=== PATIENT | female | born 1975 | race Caucasian/White ===

== ENCOUNTER 2017-09-05 13:38 | Outpatient (CLI) | payer BC | END 2017-09-05 15:44 | disposition home or self-care (01) | LOC: HPC 13:38 | DX: Z09 Encounter for follow-up examination after completed treatment for conditions other than malignant neoplasm (principal); R00.0 Tachycardia, unspecified; Z85.89 Personal history of malignant neoplasm of other organs and systems | CPT/HCPCS: Z7500 ==

== ENCOUNTER 2017-09-19 12:59 | Emergency (ER) | payer BC ==
[2017-09-19] MEDS: LACTATED RINGER'S 1,000 ML IV (15:16)
[2017-09-19] MEDS: FAMOTIDINE 20 MG INJ IV (15:16)
[2017-09-19] MEDS: LACTATED RINGER'S 500 ML IV (16:46)
== END 2017-09-19 17:44 | disposition home or self-care (01) ==
LOC: FTE 12:59
DX: E86.0 Dehydration (principal); C23 Malignant neoplasm of gallbladder
CPT/HCPCS: 96374; 99284-25

== ENCOUNTER 2017-10-05 12:35 | Inpatient (IN) | payer BC ==
[2017-10-05 13:11] LABS: ADD MAN DIFF? NO
[2017-10-05 13:14] LABS: WHITE BLOOD COUNT 9.4 10^3/ul (4.8-10.8)
[2017-10-05 13:14] LABS: BASOPHIL # 0.1 10^3/ul (0.0-0.1); BASOPHILS % 1.1 % (0.0-2.0); EOSINOPHILS % 0.4 % (0.0-7.0); HEMATOCRIT 42.1 % (37.0-47.0); HEMOGLOBIN 15.5 g/dl (12.0-16.0); LYMPHOCYTES # 1.9 10^3/ul (0.8-2.9); LYMPHOCYTES % 20.2 % (15.0-51.0); MEAN CORPUSCULAR HEMOGLOBIN 31.8 pg (29.0-33.0); MEAN CORPUSCULAR HGB CONC 36.8 g/dl (32.0-37.0); MEAN CORPUSCULAR VOLUME 86.3 fl (82.0-101.0); MEAN PLATELET VOLUME 10.4 fl (7.4-10.4); MONOCYTE # 0.5 10^3/ul (0.3-0.9); MONOCYTES % 5.2 % (0.0-11.0); NEUTROPHIL # 6.8 10^3/ul (1.6-7.5); NEUTROPHILS % 72.2 % (39.0-77.0); PLATELET COUNT 377 10^3/UL (140-415); RED BLOOD COUNT 4.88 10^6/ul (4.20-5.40); RED CELL DISTRIBUTION WIDTH 11.9 % (11.5-14.5)
[2017-10-05] MEDS: SOD CHLORIDE 0.9% 1,000 ML IV ×2 (13:20→20:00)
[2017-10-05] MEDS: FAMOTIDINE 20 MG INJ IV (13:21)
[2017-10-05] MEDS: ONDANSETRON 4 MG INJ IV ×2 (13:21→15:39)
[2017-10-05 13:31] LABS: ALANINE AMINOTRANSFERASE 111 IU/L (13-69); ALBUMIN 4.7 g/dl (3.3-4.9); ALBUMIN/GLOBULIN RATIO 1.02; ALKALINE PHOSPHATASE 296 IU/L (42-121); ASPARTATE AMINO TRANSFERASE 126 IU/L (15-46); BILIRUBIN,INDIRECT 2.1 mg/dl (0-1.1); BILIRUBIN,TOTAL 2.1 mg/dl (0.2-1.3); BLOOD UREA NITROGEN 42 mg/dl (7-20); CHLORIDE 67 mmol/L (97-110); CREATININE 2.01 mg/dl (0.44-1.00); GLUCOSE 155 mg/dl (70-220); MAGNESIUM 2.1 mg/dl (1.7-2.5); SODIUM 134 mmol/L (135-144); TOTAL PROTEIN 9.3 g/dl (6.1-8.1)
[2017-10-05] MEDS: LORAZEPAM 2 MG INJ IV (13:39)
[2017-10-05 13:40] LABS: ANION GAP 26 (8-16)
[2017-10-05 13:43] LABS: ADD UMIC YES; POTASSIUM 2.6 mmol/L (3.5-5.1); UR ASCORBIC ACID NEGATIVE (NEGATIVE); UR BACTERIA FEW /HPF (NONE SEEN); UR BILIRUBIN (Dip) 1+ mg/dL (NEGATIVE); UR BLOOD (Dip) 1+ mg/dL (NEGATIVE); UR CLARITY SLIGHTLY CLOUDY (CLEAR); UR COLOR AMBER (YELLOW); UR GLUCOSE (Dip) NEGATIVE (NEGATIVE); UR KETONES (Dip) 1+ mg/dL (NEGATIVE); UR LEUKOCYTE ESTERASE (Dip) NEGATIVE Leu/ul (NEGATIVE); UR NITRITE (Dip) NEGATIVE (NEGATIVE); UR RBC 1 /HPF (0-5); UR SPECIFIC GRAVITY (Dip) 1.021 (1.003-1.030); UR SQUAMOUS EPITHELIAL CELL FEW /HPF (FEW); UR TOTAL PROTEIN (Dip) 1+ mg/dl (NEGATIVE); UR UROBILINOGEN (Dip) 2+ mg/dL (NEGATIVE); UR WBC 5 /HPF (0-5)
[2017-10-05 13:44] LABS: CARBON DIOXIDE 44 mmol/L (21-31)
[2017-10-05] MEDS: POTASSIUM CHLORIDE 100 ML IVPB ×2 (14:12→16:20)
[2017-10-05] MEDS: POTASSIUM CHLORIDE (SR) 20 MEQ TAB PO (14:13)
[2017-10-05] MEDS ORDERED: ACETAMINOPHEN 325 MG TAB PO (14:30)
[2017-10-05] MEDS: HYDROmorphONE 0.5 MG/0.5 ML SYG IV (15:38)
[2017-10-05] MEDS ORDERED: LACTATED RINGER'S 1,000 ML IV (18:00)
[2017-10-05] MEDS ORDERED: NACL 0.9% 3 ML SYG IV (18:00)
[2017-10-05] MEDS ORDERED: morphine 2 MG INJ IV (18:00)
[2017-10-06] MEDS: HYDROmorphONE 0.5 MG/0.5 ML SYG IV (01:43)
[2017-10-06] MEDS: SOD CHLORIDE 0.9% 1,000 ML IV ×2 (02:03→16:58)
[2017-10-06 03:35] LABS: ADD MAN DIFF? NO
[2017-10-06 03:55] LABS: ALANINE AMINOTRANSFERASE 88 IU/L (13-69); ALBUMIN 3.7 g/dl (3.3-4.9); ALBUMIN/GLOBULIN RATIO 1.05; ALKALINE PHOSPHATASE 202 IU/L (42-121); ASPARTATE AMINO TRANSFERASE 88 IU/L (15-46); BILIRUBIN,INDIRECT 1.2 mg/dl (0-1.1); BILIRUBIN,TOTAL 1.2 mg/dl (0.2-1.3); BLOOD UREA NITROGEN 33 mg/dl (7-20); CHLORIDE 75 mmol/L (97-110); CREATININE 1.51 mg/dl (0.44-1.00); GLUCOSE 103 mg/dl (70-220); SODIUM 133 mmol/L (135-144); TOTAL PROTEIN 7.2 g/dl (6.1-8.1)
[2017-10-06 03:58] LABS: WHITE BLOOD COUNT 6.8 10^3/ul (4.8-10.8)
[2017-10-06 03:58] LABS: BASOPHIL # 0.1 10^3/ul (0.0-0.1); BASOPHILS % 0.9 % (0.0-2.0); EOSINOPHILS # 0.1 10^3/ul (0.0-0.5); EOSINOPHILS % 1.2 % (0.0-7.0); HEMATOCRIT 33.5 % (37.0-47.0); HEMOGLOBIN 12.3 g/dl (12.0-16.0); LYMPHOCYTES # 1.9 10^3/ul (0.8-2.9); LYMPHOCYTES % 28.4 % (15.0-51.0); MEAN CORPUSCULAR HEMOGLOBIN 32.1 pg (29.0-33.0); MEAN CORPUSCULAR HGB CONC 36.7 g/dl (32.0-37.0); MEAN CORPUSCULAR VOLUME 87.5 fl (82.0-101.0); MEAN PLATELET VOLUME 10.6 fl (7.4-10.4); MONOCYTE # 0.4 10^3/ul (0.3-0.9); MONOCYTES % 5.8 % (0.0-11.0); NEUTROPHIL # 4.3 10^3/ul (1.6-7.5); NEUTROPHILS % 63.1 % (39.0-77.0); PLATELET COUNT 256 10^3/UL (140-415); RED BLOOD COUNT 3.83 10^6/ul (4.20-5.40); RED CELL DISTRIBUTION WIDTH 12.1 % (11.5-14.5)
[2017-10-06 04:07] LABS: ANION GAP 14 (8-16)
[2017-10-06 04:09] LABS: CARBON DIOXIDE 46 mmol/L (21-31)
[2017-10-06] MEDS: POTASSIUM CHLORIDE 100 ML IVPB ×4 (05:02→11:17)
[2017-10-06] MEDS: POTASSIUM CHLORIDE 30 MEQ in SOD CHLORIDE 0.9% 1,000 ML IV (05:14)
[2017-10-06] MEDS: ONDANSETRON 4 MG INJ IV ×2 (07:58→22:39)
[2017-10-06] MEDS: POTASSIUM CHLORIDE (SR) 20 MEQ TAB PO ×2 (09:49→14:46)
[2017-10-06] MEDS: ENOXAPARIN 30 MG/0.3 ML SYG SC (09:50)
[2017-10-06] MEDS: MAGNESIUM SULFATE 1 GM/D5W 100 ML IVPB (10:13)
[2017-10-06] MEDS ORDERED: LORAZEPAM 1 MG TAB PO (11:30)
[2017-10-06] MEDS ORDERED: LORAZEPAM 0.5 MG TAB (11:59)
[2017-10-06 12:06] LABS: AADO2 Arterial 18.1 mmHg (7.0-24.0); Allen Test ACCEPTAB; Arterial Base Excess 16.6 mmol/L (-3.0-3); Arterial Blood Gas Oxygen Sat 96.2 mmHG (95.0-98.0); Arterial COHb 0.2 % (0.0-3.0); Arterial Fraction of Oxyhgb 95.9 % (93.0-99.0); Arterial HCO3 40.5 mmol/L (22.0-26.0); Arterial MetHb 0.1 % (0.0-1.5); Arterial Total Hemglobin 12.8 g/dl (12.0-18.0); Arterial pCO2 44.7 mmhg (35-45); MODE ROOM AIR; Site Right Radial
[2017-10-06] MEDS: LORAZEPAM 0.5 MG TAB PO ×2 (12:08→19:54)
[2017-10-06] MEDS: FAMOTIDINE 20 MG TAB PO ×2 (12:08→20:37)
[2017-10-06 13:34] LABS: BLOOD UREA NITROGEN 28 mg/dl (7-20); CALCIUM 9.2 mg/dl (8.4-10.2); CHLORIDE 82 mmol/L (97-110); CREATININE 1.43 mg/dl (0.44-1.00); GLUCOSE 105 mg/dl (70-220); MAGNESIUM 2.4 mg/dl (1.7-2.5); POTASSIUM 3.4 mmol/L (3.5-5.1); SODIUM 136 mmol/L (135-144)
[2017-10-06 13:41] LABS: ANION GAP 15 (8-16)
[2017-10-06 13:46] LABS: CARBON DIOXIDE 42 mmol/L (21-31)
[2017-10-06] MEDS: PANTOPRAZOLE (EC) 40 MG TAB PO (14:45)
[2017-10-06] MEDS: ACETAZOLAMIDE 500 MG INJ IV (17:41)
[2017-10-06 18:03] LABS: SODIUM,URINE RANDOM 125 mmol/L (30-90)
[2017-10-06 18:06] LABS: POTASSIUM,URINE RANDOM 42.5 mmol/L (25-125)
[2017-10-06] MEDS: BARIUM SULF 2% 450 ML BTL (BERRY SMOOTHIE) PO (19:13)
[2017-10-07] MEDS: SOD CHLORIDE 0.9% 1,000 ML IV ×3 (03:20→19:15)
[2017-10-07] MEDS: PANTOPRAZOLE (EC) 40 MG TAB PO (05:35)
[2017-10-07] MEDS: FAMOTIDINE 20 MG TAB PO ×2 (08:22→22:58)
[2017-10-07 08:24] LABS: ANION GAP 14 (8-16); BLOOD UREA NITROGEN 20 mg/dl (7-20); CALCIUM 9.3 mg/dl (8.4-10.2); CARBON DIOXIDE 36 mmol/L (21-31); CHLORIDE 90 mmol/L (97-110); GLUCOSE 104 mg/dl (70-220); MAGNESIUM 1.9 mg/dl (1.7-2.5); SODIUM 137 mmol/L (135-144)
[2017-10-07 08:27] LABS: POTASSIUM 2.6 mmol/L (3.5-5.1)
[2017-10-07 08:27] LABS: URIC ACID 9.6 mg/dl (3.1-7.9)
[2017-10-07] MEDS: ONDANSETRON 4 MG INJ IV ×3 (08:35→18:16)
[2017-10-07] MEDS: ENOXAPARIN 30 MG/0.3 ML SYG SC (08:39)
[2017-10-07] MEDS: LORAZEPAM 0.5 MG TAB PO (09:35)
[2017-10-07] MEDS ORDERED: POTASSIUM CHLORIDE (SR) 20 MEQ TAB PO (10:03)
[2017-10-07] MEDS ORDERED: POTASSIUM CHLORIDE 100 ML IVPB (10:30)
[2017-10-07] MEDS: POTASSIUM CHLORIDE 100 ML IVPB ×4 (11:27→22:57)
[2017-10-07] MEDS: LORAZEPAM 2 MG INJ IV (16:09)
[2017-10-07] MEDS: SUCRALFATE (100 MG/ML) 10ML CUP PO ×2 (19:47→22:57)
[2017-10-07] MEDS: POTASSIUM CHLORIDE (SR) 20 MEQ TAB PO (22:57)
[2017-10-08] MEDS: PANTOPRAZOLE (EC) 40 MG TAB PO (05:42)
[2017-10-08] MEDS: SOD CHLORIDE 0.9% 1,000 ML IV (05:42)
[2017-10-08] MEDS: SUCRALFATE (100 MG/ML) 10ML CUP PO ×4 (08:22→21:21)
[2017-10-08] MEDS: ALLOPURINOL 100 MG TAB PO ×2 (08:22→21:21)
[2017-10-08] MEDS: FAMOTIDINE 20 MG TAB PO ×2 (08:22→21:21)
[2017-10-08] MEDS: POTASSIUM CHLORIDE (SR) 20 MEQ TAB PO ×2 (08:23→21:21)
[2017-10-08] MEDS: ENOXAPARIN 30 MG/0.3 ML SYG SC (08:32)
[2017-10-08 08:42] LABS: ADD MAN DIFF? NO
[2017-10-08 08:44] LABS: BASOPHIL # 0.1 10^3/ul (0.0-0.1); BASOPHILS % 0.9 % (0.0-2.0); EOSINOPHILS # 0.2 10^3/ul (0.0-0.5); EOSINOPHILS % 2.9 % (0.0-7.0); HEMATOCRIT 35.4 % (37.0-47.0); HEMOGLOBIN 12.8 g/dl (12.0-16.0); LYMPHOCYTES # 1.9 10^3/ul (0.8-2.9); LYMPHOCYTES % 24.9 % (15.0-51.0); MEAN CORPUSCULAR HEMOGLOBIN 31.9 pg (29.0-33.0); MEAN CORPUSCULAR HGB CONC 36.2 g/dl (32.0-37.0); MEAN CORPUSCULAR VOLUME 88.3 fl (82.0-101.0); MEAN PLATELET VOLUME 10.8 fl (7.4-10.4); MONOCYTE # 0.4 10^3/ul (0.3-0.9); MONOCYTES % 4.7 % (0.0-11.0); NEUTROPHILS % 65.4 % (39.0-77.0); PLATELET COUNT 292 10^3/UL (140-415); RED BLOOD COUNT 4.01 10^6/ul (4.20-5.40)
[2017-10-08 08:44] LABS: WHITE BLOOD COUNT 7.6 10^3/ul (4.8-10.8)
[2017-10-08 09:14] LABS: ANION GAP 16 (8-16); BLOOD UREA NITROGEN 25 mg/dl (7-20); CALCIUM 9.6 mg/dl (8.4-10.2); CARBON DIOXIDE 36 mmol/L (21-31); CHLORIDE 92 mmol/L (97-110); CREATININE 1.55 mg/dl (0.44-1.00); GLUCOSE 115 mg/dl (70-220); POTASSIUM 3.1 mmol/L (3.5-5.1); SODIUM 141 mmol/L (135-144)
[2017-10-08] MEDS: POTASSIUM CHLORIDE 40 MEQ in SOD CHLORIDE 0.45% 1,000 ML IV ×2 (10:24→20:42)
[2017-10-08] MEDS: LIDOCAINE 2% (SDV) 5 ML INJ (15:53)
[2017-10-08] MEDS: PROPOFOL 40 ML (15:53)
[2017-10-09] MEDS: LORAZEPAM 0.5 MG TAB PO ×3 (01:28→21:22)
[2017-10-09] MEDS: PANTOPRAZOLE (EC) 40 MG TAB PO (05:33)
[2017-10-09] MEDS: POTASSIUM CHLORIDE 40 MEQ in SOD CHLORIDE 0.45% 1,000 ML IV ×2 (05:34→17:06)
[2017-10-09] MEDS: ALLOPURINOL 100 MG TAB PO ×2 (07:55→21:22)
[2017-10-09] MEDS: SUCRALFATE (100 MG/ML) 10ML CUP PO ×4 (07:55→21:22)
[2017-10-09] MEDS: POTASSIUM CHLORIDE (SR) 20 MEQ TAB PO ×2 (07:55→21:22)
[2017-10-09] MEDS: FAMOTIDINE 20 MG TAB PO ×2 (07:55→21:22)
[2017-10-09] MEDS: ENOXAPARIN 30 MG/0.3 ML SYG SC (08:04)
[2017-10-09 08:55] LABS: ADD MAN DIFF? NO
[2017-10-09 09:25] LABS: ANION GAP 14 (8-16); BLOOD UREA NITROGEN 25 mg/dl (7-20); CALCIUM 9.4 mg/dl (8.4-10.2); CARBON DIOXIDE 32 mmol/L (21-31); CHLORIDE 95 mmol/L (97-110); CREATININE 1.19 mg/dl (0.44-1.00); GLUCOSE 98 mg/dl (70-220); POTASSIUM 3.1 mmol/L (3.5-5.1); SODIUM 138 mmol/L (135-144)
[2017-10-09 09:56] LABS: BASOPHIL # 0.1 10^3/ul (0.0-0.1); EOSINOPHILS # 0.1 10^3/ul (0.0-0.5); EOSINOPHILS % 1.9 % (0.0-7.0); HEMATOCRIT 34.5 % (37.0-47.0); HEMOGLOBIN 12.2 g/dl (12.0-16.0); LYMPHOCYTES # 1.7 10^3/ul (0.8-2.9); LYMPHOCYTES % 27.5 % (15.0-51.0); MEAN CORPUSCULAR HEMOGLOBIN 31.5 pg (29.0-33.0); MEAN CORPUSCULAR HGB CONC 35.4 g/dl (32.0-37.0); MEAN CORPUSCULAR VOLUME 89.1 fl (82.0-101.0); MEAN PLATELET VOLUME 10.6 fl (7.4-10.4); MONOCYTE # 0.4 10^3/ul (0.3-0.9); MONOCYTES % 6.5 % (0.0-11.0); NEUTROPHIL # 3.9 10^3/ul (1.6-7.5); PLATELET COUNT 277 10^3/UL (140-415); RED BLOOD COUNT 3.87 10^6/ul (4.20-5.40); RED CELL DISTRIBUTION WIDTH 12.8 % (11.5-14.5)
[2017-10-09 09:56] LABS: WHITE BLOOD COUNT 6.3 10^3/ul (4.8-10.8)
[2017-10-10] MEDS: POTASSIUM CHLORIDE 40 MEQ in SOD CHLORIDE 0.45% 1,000 ML IV ×2 (05:07→21:08)
[2017-10-10] MEDS: PANTOPRAZOLE (EC) 40 MG TAB PO (05:09)
[2017-10-10 08:14] LABS: ADD MAN DIFF? NO
[2017-10-10 08:17] LABS: BASOPHIL # 0.1 10^3/ul (0.0-0.1); BASOPHILS % 1.3 % (0.0-2.0); EOSINOPHILS # 0.1 10^3/ul (0.0-0.5); EOSINOPHILS % 1.7 % (0.0-7.0); HEMATOCRIT 33.7 % (37.0-47.0); LYMPHOCYTES # 1.5 10^3/ul (0.8-2.9); LYMPHOCYTES % 24.6 % (15.0-51.0); MEAN CORPUSCULAR HEMOGLOBIN 31.5 pg (29.0-33.0); MEAN CORPUSCULAR HGB CONC 35.6 g/dl (32.0-37.0); MEAN CORPUSCULAR VOLUME 88.5 fl (82.0-101.0); MEAN PLATELET VOLUME 10.5 fl (7.4-10.4); MONOCYTE # 0.4 10^3/ul (0.3-0.9); MONOCYTES % 5.8 % (0.0-11.0); NEUTROPHIL # 3.9 10^3/ul (1.6-7.5); NEUTROPHILS % 65.1 % (39.0-77.0); PLATELET COUNT 254 10^3/UL (140-415); RED BLOOD COUNT 3.81 10^6/ul (4.20-5.40); RED CELL DISTRIBUTION WIDTH 12.9 % (11.5-14.5)
[2017-10-10] MEDS: SUCRALFATE (100 MG/ML) 10ML CUP PO ×4 (08:25→21:07)
[2017-10-10] MEDS: FAMOTIDINE 20 MG TAB PO ×2 (08:25→21:07)
[2017-10-10] MEDS: POTASSIUM CHLORIDE (SR) 20 MEQ TAB PO ×2 (08:25→21:07)
[2017-10-10] MEDS: ALLOPURINOL 100 MG TAB PO ×2 (08:31→21:07)
[2017-10-10 08:34] LABS: INR 1.02; PROTIME 13.5 Sec (11.9-14.9); PT RATIO 1.1
[2017-10-10 08:35] LABS: PARTIAL THROMBOPLASTIN TIME 28.3 Sec (25.0-35.0)
[2017-10-10 08:38] LABS: ALANINE AMINOTRANSFERASE 62 IU/L (13-69); ALBUMIN 3.8 g/dl (3.3-4.9); ALBUMIN/GLOBULIN RATIO 1.02; ALKALINE PHOSPHATASE 195 IU/L (42-121); ANION GAP 18 (8-16); ASPARTATE AMINO TRANSFERASE 57 IU/L (15-46); BILIRUBIN,INDIRECT 0.7 mg/dl (0-1.1); BILIRUBIN,TOTAL 0.7 mg/dl (0.2-1.3); BLOOD UREA NITROGEN 25 mg/dl (7-20); CALCIUM 9.3 mg/dl (8.4-10.2); CARBON DIOXIDE 31 mmol/L (21-31); CHLORIDE 95 mmol/L (97-110); CREATININE 1.06 mg/dl (0.44-1.00); GLUCOSE 88 mg/dl (70-220); MAGNESIUM 1.8 mg/dl (1.7-2.5); POTASSIUM 3.4 mmol/L (3.5-5.1); SODIUM 141 mmol/L (135-144); TOTAL PROTEIN 7.5 g/dl (6.1-8.1)
[2017-10-10] MEDS: ENOXAPARIN 30 MG/0.3 ML SYG SC (08:38)
[2017-10-10 08:39] LABS: LACTIC ACID 0.9 mmol/L (0.5-2.0)
[2017-10-10 08:43] LABS: B-TYPE NATRIURETIC PEPTIDE 216 PG/ML (0-125)
[2017-10-10] MEDS ORDERED: POTASSIUM CHLORIDE (SR) 20 MEQ TAB PO (11:32)
[2017-10-10] MEDS ORDERED: BISACODYL 10 MG SUPP PR (13:00)
[2017-10-10] MEDS ORDERED: NA PHOSPHATE/BIPHOS 133 ML ENEMA PR (13:00)
[2017-10-10] MEDS: LORAZEPAM 0.5 MG TAB PO (21:08)
[2017-10-10] MEDS: ONDANSETRON 4 MG INJ IV (22:20)
[2017-10-10] MEDS: LORAZEPAM 2 MG INJ IV (22:42)
[2017-10-11] MEDS: PANTOPRAZOLE (EC) 40 MG TAB PO (06:00)
[2017-10-11 07:42] LABS: ADD MAN DIFF? NO
[2017-10-11 07:48] LABS: BASOPHIL # 0.1 10^3/ul (0.0-0.1); BASOPHILS % 1.2 % (0.0-2.0); EOSINOPHILS # 0.1 10^3/ul (0.0-0.5); EOSINOPHILS % 1.7 % (0.0-7.0); HEMATOCRIT 33.4 % (37.0-47.0); HEMOGLOBIN 11.8 g/dl (12.0-16.0); LYMPHOCYTES # 1.5 10^3/ul (0.8-2.9); LYMPHOCYTES % 26.6 % (15.0-51.0); MEAN CORPUSCULAR HEMOGLOBIN 31.5 pg (29.0-33.0); MEAN CORPUSCULAR HGB CONC 35.3 g/dl (32.0-37.0); MEAN CORPUSCULAR VOLUME 89.1 fl (82.0-101.0); MEAN PLATELET VOLUME 10.3 fl (7.4-10.4); MONOCYTE # 0.4 10^3/ul (0.3-0.9); MONOCYTES % 6.8 % (0.0-11.0); NEUTROPHIL # 3.6 10^3/ul (1.6-7.5); NEUTROPHILS % 62.7 % (39.0-77.0); PLATELET COUNT 252 10^3/UL (140-415); RED BLOOD COUNT 3.75 10^6/ul (4.20-5.40); RED CELL DISTRIBUTION WIDTH 12.8 % (11.5-14.5)
[2017-10-11 07:48] LABS: WHITE BLOOD COUNT 5.8 10^3/ul (4.8-10.8)
[2017-10-11 08:33] LABS: ANION GAP 16 (8-16); BLOOD UREA NITROGEN 25 mg/dl (7-20); CALCIUM 9.3 mg/dl (8.4-10.2); CARBON DIOXIDE 30 mmol/L (21-31); CHLORIDE 98 mmol/L (97-110); CREATININE 0.98 mg/dl (0.44-1.00); GLUCOSE 87 mg/dl (70-220); MAGNESIUM 1.7 mg/dl (1.7-2.5); PHOSPHORUS 3.6 mg/dl (2.5-4.9); POTASSIUM 3.8 mmol/L (3.5-5.1); SODIUM 140 mmol/L (135-144)
[2017-10-11] MEDS: ALLOPURINOL 100 MG TAB PO ×2 (10:33→20:46)
[2017-10-11] MEDS: POTASSIUM CHLORIDE (SR) 20 MEQ TAB PO ×2 (10:33→20:46)
[2017-10-11] MEDS: SUCRALFATE (100 MG/ML) 10ML CUP PO ×4 (10:34→20:46)
[2017-10-11] MEDS: ENOXAPARIN 30 MG/0.3 ML SYG SC (10:35)
[2017-10-11] MEDS: FAMOTIDINE 20 MG TAB PO ×2 (10:37→20:46)
[2017-10-11] MEDS: POTASSIUM CHLORIDE 40 MEQ in SOD CHLORIDE 0.45% 1,000 ML IV ×2 (16:06→20:49)
[2017-10-11] MEDS: OXYCODONE/ACETAMINOPHEN (5/325) TAB PO (17:20)
[2017-10-11] MEDS: DIATR MEGLU/DIATRIZOATE SODIUM 120 ML BTL (17:55)
[2017-10-12] MEDS: PANTOPRAZOLE (EC) 40 MG TAB PO (05:56)
[2017-10-12] MEDS: POTASSIUM CHLORIDE (SR) 20 MEQ TAB PO ×2 (08:22→22:34)
[2017-10-12] MEDS: SUCRALFATE (100 MG/ML) 10ML CUP PO ×4 (08:22→22:34)
[2017-10-12] MEDS: ALLOPURINOL 100 MG TAB PO ×2 (08:22→22:34)
[2017-10-12] MEDS: FAMOTIDINE 20 MG TAB PO ×2 (08:22→22:34)
[2017-10-12] MEDS: ENOXAPARIN 30 MG/0.3 ML SYG SC (08:23)
[2017-10-12] MEDS: POTASSIUM CHLORIDE 40 MEQ in SOD CHLORIDE 0.45% 1,000 ML IV (14:51)
[2017-10-12 15:06] LABS: ADD MAN DIFF? NO
[2017-10-12 15:09] LABS: BASOPHIL # 0.1 10^3/ul (0.0-0.1); BASOPHILS % 1.1 % (0.0-2.0); EOSINOPHILS # 0.1 10^3/ul (0.0-0.5); EOSINOPHILS % 1.3 % (0.0-7.0); HEMOGLOBIN 11.9 g/dl (12.0-16.0); LYMPHOCYTES # 0.9 10^3/ul (0.8-2.9); LYMPHOCYTES % 14.4 % (15.0-51.0); MEAN CORPUSCULAR HEMOGLOBIN 32.1 pg (29.0-33.0); MEAN CORPUSCULAR HGB CONC 36.1 g/dl (32.0-37.0); MEAN CORPUSCULAR VOLUME 88.9 fl (82.0-101.0); MEAN PLATELET VOLUME 10.1 fl (7.4-10.4); MONOCYTE # 0.4 10^3/ul (0.3-0.9); NEUTROPHIL # 4.8 10^3/ul (1.6-7.5); NEUTROPHILS % 76.1 % (39.0-77.0); PLATELET COUNT 228 10^3/UL (140-415); RED BLOOD COUNT 3.71 10^6/ul (4.20-5.40)
[2017-10-12 15:09] LABS: WHITE BLOOD COUNT 6.3 10^3/ul (4.8-10.8)
[2017-10-12 15:35] LABS: ANION GAP 19 (8-16); BLOOD UREA NITROGEN 23 mg/dl (7-20); CALCIUM 9.4 mg/dl (8.4-10.2); CARBON DIOXIDE 27 mmol/L (21-31); CHLORIDE 98 mmol/L (97-110); CREATININE 0.95 mg/dl (0.44-1.00); GLUCOSE 94 mg/dl (70-220); POTASSIUM 3.6 mmol/L (3.5-5.1); SODIUM 140 mmol/L (135-144)
[2017-10-12] MEDS: ONDANSETRON 4 MG INJ IV (22:33)
[2017-10-12] MEDS: LORAZEPAM 0.5 MG TAB PO (22:34)
[2017-10-13] MEDS: PANTOPRAZOLE (EC) 40 MG TAB PO (06:40)
[2017-10-13] MEDS: POTASSIUM CHLORIDE 40 MEQ in SOD CHLORIDE 0.45% 1,000 ML IV (06:40)
[2017-10-13 08:31] LABS: ADD MAN DIFF? NO
[2017-10-13 08:38] LABS: WHITE BLOOD COUNT 5.5 10^3/ul (4.8-10.8)
[2017-10-13 08:38] LABS: BASOPHIL # 0.1 10^3/ul (0.0-0.1); BASOPHILS % 1.1 % (0.0-2.0); EOSINOPHILS # 0.1 10^3/ul (0.0-0.5); EOSINOPHILS % 2.4 % (0.0-7.0); HEMATOCRIT 33.6 % (37.0-47.0); HEMOGLOBIN 11.8 g/dl (12.0-16.0); LYMPHOCYTES # 1.3 10^3/ul (0.8-2.9); LYMPHOCYTES % 22.6 % (15.0-51.0); MEAN CORPUSCULAR HEMOGLOBIN 31.2 pg (29.0-33.0); MEAN CORPUSCULAR HGB CONC 35.1 g/dl (32.0-37.0); MEAN CORPUSCULAR VOLUME 88.9 fl (82.0-101.0); MEAN PLATELET VOLUME 10.9 fl (7.4-10.4); MONOCYTE # 0.4 10^3/ul (0.3-0.9); NEUTROPHIL # 3.6 10^3/ul (1.6-7.5); NEUTROPHILS % 64.6 % (39.0-77.0); PLATELET COUNT 240 10^3/UL (140-415); RED BLOOD COUNT 3.78 10^6/ul (4.20-5.40)
[2017-10-13] MEDS: POTASSIUM CHLORIDE (SR) 20 MEQ TAB PO ×2 (08:38→20:26)
[2017-10-13] MEDS: SUCRALFATE (100 MG/ML) 10ML CUP PO ×4 (08:38→20:26)
[2017-10-13] MEDS: ALLOPURINOL 100 MG TAB PO ×2 (08:39→20:26)
[2017-10-13] MEDS: FAMOTIDINE 20 MG TAB PO (08:39)
[2017-10-13] MEDS: ENOXAPARIN 30 MG/0.3 ML SYG SC (08:47)
[2017-10-13 08:57] LABS: ANION GAP 16 (8-16); BLOOD UREA NITROGEN 21 mg/dl (7-20); CALCIUM 9.1 mg/dl (8.4-10.2); CARBON DIOXIDE 30 mmol/L (21-31); CHLORIDE 96 mmol/L (97-110); CREATININE 0.91 mg/dl (0.44-1.00); GLUCOSE 85 mg/dl (70-220); POTASSIUM 3.4 mmol/L (3.5-5.1); SODIUM 139 mmol/L (135-144)
[2017-10-13] MEDS: ONDANSETRON 4 MG INJ IV ×2 (08:57→13:00)
[2017-10-13] MEDS: LORAZEPAM 0.5 MG TAB PO (18:55)
[2017-10-14] MEDS: POTASSIUM CHLORIDE 40 MEQ in SOD CHLORIDE 0.45% 1,000 ML IV (01:32)
[2017-10-14] MEDS: PANTOPRAZOLE (EC) 40 MG TAB PO (05:49)
[2017-10-14 07:53] LABS: ANION GAP 17 (8-16); BLOOD UREA NITROGEN 21 mg/dl (7-20); CALCIUM 9.4 mg/dl (8.4-10.2); CARBON DIOXIDE 31 mmol/L (21-31); CHLORIDE 95 mmol/L (97-110); CREATININE 0.88 mg/dl (0.44-1.00); GLUCOSE 81 mg/dl (70-220); MAGNESIUM 1.7 mg/dl (1.7-2.5); PHOSPHORUS 3.8 mg/dl (2.5-4.9); POTASSIUM 3.3 mmol/L (3.5-5.1); SODIUM 140 mmol/L (135-144)
[2017-10-14] MEDS: SUCRALFATE (100 MG/ML) 10ML CUP PO ×2 (08:56→12:01)
[2017-10-14] MEDS: POTASSIUM CHLORIDE (SR) 20 MEQ TAB PO (08:56)
[2017-10-14] MEDS: ALLOPURINOL 100 MG TAB PO (08:56)
[2017-10-14] MEDS: ENOXAPARIN 30 MG/0.3 ML SYG SC (09:02)
[2017-10-14] MEDS: METOCLOPRAMIDE 10 MG INJ IV (11:58)
== END 2017-10-14 16:15 | disposition home or self-care (01) | DRG 435 ==
LOC: MS3 14:06 → TEL 10-07 22:00 → E/R 12:35
PROC: 0DB98ZX Excision of Duodenum, Via Natural or Artificial Opening Endoscopic, Diagnostic (ICD-10-PCS; principal; 2017-10-08 15:00)
PROC: 0DB68ZX Excision of Stomach, Via Natural or Artificial Opening Endoscopic, Diagnostic (ICD-10-PCS; 2017-10-08 15:00)
PROC: 0DB58ZX Excision of Esophagus, Via Natural or Artificial Opening Endoscopic, Diagnostic (ICD-10-PCS; 2017-10-08 15:00)
DX: C25.0 Malignant neoplasm of head of pancreas (principal); K29.71 Gastritis, unspecified, with bleeding; K31.5 Obstruction of duodenum; C78.7 Secondary malignant neoplasm of liver and intrahepatic bile duct; N17.9 Acute kidney failure, unspecified; E87.3 Alkalosis; K31.1 Adult hypertrophic pyloric stenosis; E87.6 Hypokalemia; Z85.89 Personal history of malignant neoplasm of other organs and systems; Z90.49 Acquired absence of other specified parts of digestive tract; R11.2 Nausea with vomiting, unspecified; Z96.89 Presence of other specified functional implants; K20.9 Esophagitis, unspecified; E79.0 Hyperuricemia without signs of inflammatory arthritis and tophaceous disease; K44.9 Diaphragmatic hernia without obstruction or gangrene; E66.01 Morbid (severe) obesity due to excess calories; Z68.27 Body mass index [BMI] 27.0-27.9, adult; F41.9 Anxiety disorder, unspecified; R25.3 Fasciculation; R20.0 Anesthesia of skin
CPT/HCPCS: 36415; 36600; 70450; 70553; 71045; 74176; 74182; 74240; 80048; 80053; 81001; 81003; 81025; 82570; 82803; 83605; 83735; 83880; 84100; 84133; 84300; 84560; 85025; 85610; 85730; 88305; 88312; 88313; 89190; 93005; 96374; 96375; 96376; 97161; 99291-25; J1120

== ENCOUNTER 2017-10-22 14:14 | Inpatient (IN) | payer BC ==
[2017-10-22 15:16] LABS: URINE PH (Dip) POC 5.5 (5.0-8.5)
[2017-10-22 15:16] LABS: URINE BLOOD (Dip) POC 2+ (NEGATIVE); URINE GLUCOSE (Dip) POC Negative (NEGATIVE); URINE KETONES (Dip) POC 2+ (NEGATIVE); URINE LEUKOCYTE EST (Dip) POC Negative (NEGATIVE); URINE NITRITE (Dip) POC Negative (NEGATIVE); URINE TOTAL PROTEIN POC 2+ (NEGATIVE)
[2017-10-22 15:17] LABS: ADD MAN DIFF? NO
[2017-10-22 15:18] LABS: WHITE BLOOD COUNT 13.5 10^3/ul (4.8-10.8)
[2017-10-22 15:18] LABS: BASOPHIL # 0.1 10^3/ul (0.0-0.1); BASOPHILS % 0.8 % (0.0-2.0); EOSINOPHILS % 0.1 % (0.0-7.0); HEMATOCRIT 40.3 % (37.0-47.0); HEMOGLOBIN 14.8 g/dl (12.0-16.0); LYMPHOCYTES # 2.1 10^3/ul (0.8-2.9); LYMPHOCYTES % 15.5 % (15.0-51.0); MEAN CORPUSCULAR HEMOGLOBIN 31.5 pg (29.0-33.0); MEAN CORPUSCULAR HGB CONC 36.7 g/dl (32.0-37.0); MEAN CORPUSCULAR VOLUME 85.7 fl (82.0-101.0); MEAN PLATELET VOLUME 10.7 fl (7.4-10.4); MONOCYTE # 0.6 10^3/ul (0.3-0.9); MONOCYTES % 4.5 % (0.0-11.0); NEUTROPHIL # 10.5 10^3/ul (1.6-7.5); NEUTROPHILS % 77.8 % (39.0-77.0); PLATELET COUNT 398 10^3/UL (140-415); RED CELL DISTRIBUTION WIDTH 12.6 % (11.5-14.5)
[2017-10-22] MEDS: SOD CHLORIDE 0.9% 1,000 ML IV ×2 (15:21→16:16)
[2017-10-22] MEDS: ONDANSETRON 4 MG INJ IV ×2 (15:21→20:42)
[2017-10-22 15:34] LABS: MAGNESIUM 1.9 mg/dl (1.7-2.5)
[2017-10-22 15:38] LABS: ALANINE AMINOTRANSFERASE 67 IU/L (13-69); ALBUMIN 4.5 g/dl (3.3-4.9); ALKALINE PHOSPHATASE 336 IU/L (42-121); ASPARTATE AMINO TRANSFERASE 83 IU/L (15-46); BILIRUBIN,INDIRECT 2.4 mg/dl (0-1.1); BILIRUBIN,TOTAL 2.4 mg/dl (0.2-1.3); BLOOD UREA NITROGEN 73 mg/dl (7-20); CALCIUM 9.3 mg/dl (8.4-10.2); CHLORIDE 67 mmol/L (97-110); CREATININE 1.86 mg/dl (0.44-1.00); GLUCOSE 189 mg/dl (70-220); LIPASE 152 U/L (23-300); SODIUM 131 mmol/L (135-144)
[2017-10-22 15:49] LABS: ANION GAP 24 (8-16)
[2017-10-22 15:51] LABS: CARBON DIOXIDE 42 mmol/L (21-31)
[2017-10-22] MEDS: LORAZEPAM 0.5 MG TAB PO (16:46)
[2017-10-22] MEDS: POTASSIUM CHLORIDE 100 ML IVPB ×2 (16:46→18:38)
[2017-10-22] MEDS ORDERED: METOCLOPRAMIDE 10 MG INJ IV (17:30)
[2017-10-22] MEDS ORDERED: NACL 0.9% 3 ML SYG IV (17:30)
[2017-10-23] MEDS: POTASSIUM CHLORIDE 40 MEQ in SOD CHLORIDE 0.9% 1,000 ML IV ×5 (01:15→20:09)
[2017-10-23 05:38] LABS: ADD MAN DIFF? NO
[2017-10-23 05:40] LABS: BASOPHIL # 0.1 10^3/ul (0.0-0.1); BASOPHILS % 0.8 % (0.0-2.0); EOSINOPHILS # 0.1 10^3/ul (0.0-0.5); EOSINOPHILS % 0.9 % (0.0-7.0); HEMATOCRIT 32.9 % (37.0-47.0); HEMOGLOBIN 11.5 g/dl (12.0-16.0); LYMPHOCYTES % 25.1 % (15.0-51.0); MEAN CORPUSCULAR HEMOGLOBIN 30.9 pg (29.0-33.0); MEAN CORPUSCULAR VOLUME 88.4 fl (82.0-101.0); MEAN PLATELET VOLUME 10.9 fl (7.4-10.4); MONOCYTE # 0.5 10^3/ul (0.3-0.9); MONOCYTES % 5.8 % (0.0-11.0); NEUTROPHIL # 5.3 10^3/ul (1.6-7.5); NEUTROPHILS % 65.9 % (39.0-77.0); PLATELET COUNT 219 10^3/UL (140-415); RED BLOOD COUNT 3.72 10^6/ul (4.20-5.40); RED CELL DISTRIBUTION WIDTH 12.6 % (11.5-14.5)
[2017-10-23 06:06] LABS: BLOOD UREA NITROGEN 52 mg/dl (7-20); CALCIUM 8.6 mg/dl (8.4-10.2); CHLORIDE 82 mmol/L (97-110); CREATININE 1.25 mg/dl (0.44-1.00); GLUCOSE 94 mg/dl (70-220); MAGNESIUM 1.8 mg/dl (1.7-2.5); PHOSPHORUS 2.8 mg/dl (2.5-4.9); SODIUM 135 mmol/L (135-144)
[2017-10-23] MEDS: PANTOPRAZOLE 40 MG INJ IV (06:09)
[2017-10-23 06:13] LABS: ANION GAP 15 (8-16)
[2017-10-23 06:16] LABS: POTASSIUM 2.3 mmol/L (3.5-5.1)
[2017-10-23 07:14] LABS: CARBON DIOXIDE 41 mmol/L (21-31)
[2017-10-23] MEDS: POTASSIUM CHLORIDE 100 ML IVPB ×3 (08:00→12:35)
[2017-10-23] MEDS: LORAZEPAM 2 MG INJ IV (16:16)
[2017-10-24] MEDS: POTASSIUM CHLORIDE 40 MEQ in SOD CHLORIDE 0.9% 1,000 ML IV ×3 (05:08→18:33)
[2017-10-24] MEDS: PANTOPRAZOLE 40 MG INJ IV (05:16)
[2017-10-24 06:36] LABS: ANION GAP 12 (8-16); BLOOD UREA NITROGEN 25 mg/dl (7-20); CALCIUM 8.7 mg/dl (8.4-10.2); CARBON DIOXIDE 33 mmol/L (21-31); CHLORIDE 96 mmol/L (97-110); CREATININE 0.97 mg/dl (0.44-1.00); GLUCOSE 86 mg/dl (70-220); MAGNESIUM 1.6 mg/dl (1.7-2.5); PHOSPHORUS 1.8 mg/dl (2.5-4.9); POTASSIUM 3.2 mmol/L (3.5-5.1); SODIUM 138 mmol/L (135-144)
[2017-10-24] MEDS: morphine 2 MG INJ IV (09:42)
[2017-10-24] MEDS: PROPOFOL 40 ML (17:36)
[2017-10-24] MEDS: MAGNESIUM SULFATE 2 GM/50 ML 50 ML IVPB (18:36)
[2017-10-24] MEDS: LORAZEPAM 2 MG INJ IV (22:15)
[2017-10-25] MEDS: POTASSIUM CHLORIDE 40 MEQ in SOD CHLORIDE 0.9% 1,000 ML IV ×5 (00:53→22:53)
[2017-10-25] MEDS: PANTOPRAZOLE 40 MG INJ IV (04:09)
[2017-10-25 05:45] LABS: ANION GAP 16 (8-16); BLOOD UREA NITROGEN 14 mg/dl (7-20); CALCIUM 8.5 mg/dl (8.4-10.2); CARBON DIOXIDE 26 mmol/L (21-31); CHLORIDE 99 mmol/L (97-110); CREATININE 0.75 mg/dl (0.44-1.00); GLUCOSE 83 mg/dl (70-220); MAGNESIUM 1.8 mg/dl (1.7-2.5); POTASSIUM 3.8 mmol/L (3.5-5.1); SODIUM 137 mmol/L (135-144)
[2017-10-25] MEDS: ONDANSETRON 4 MG INJ IV (12:55)
[2017-10-25] MEDS: KETOROLAC 15 MG INJ IV (12:55)
[2017-10-26] MEDS: KETOROLAC 15 MG INJ IV (04:31)
[2017-10-26 05:40] LABS: ADD MAN DIFF? NO
[2017-10-26 05:45] LABS: BASOPHIL # 0.1 10^3/ul (0.0-0.1); BASOPHILS % 1.1 % (0.0-2.0); EOSINOPHILS # 0.3 10^3/ul (0.0-0.5); EOSINOPHILS % 3.8 % (0.0-7.0); HEMATOCRIT 29.3 % (37.0-47.0); HEMOGLOBIN 10.6 g/dl (12.0-16.0); LYMPHOCYTES # 1.5 10^3/ul (0.8-2.9); MEAN CORPUSCULAR HGB CONC 36.2 g/dl (32.0-37.0); MEAN CORPUSCULAR VOLUME 88.5 fl (82.0-101.0); MONOCYTE # 0.3 10^3/ul (0.3-0.9); MONOCYTES % 4.2 % (0.0-11.0); NEUTROPHIL # 4.8 10^3/ul (1.6-7.5); NEUTROPHILS % 67.2 % (39.0-77.0); PLATELET COUNT 189 10^3/UL (140-415); RED BLOOD COUNT 3.31 10^6/ul (4.20-5.40); RED CELL DISTRIBUTION WIDTH 13.3 % (11.5-14.5)
[2017-10-26 05:45] LABS: WHITE BLOOD COUNT 7.1 10^3/ul (4.8-10.8)
[2017-10-26 06:10] LABS: ALANINE AMINOTRANSFERASE 35 IU/L (13-69); ALBUMIN 2.8 g/dl (3.3-4.9); ALKALINE PHOSPHATASE 171 IU/L (42-121); ASPARTATE AMINO TRANSFERASE 30 IU/L (15-46); BILIRUBIN,INDIRECT 0.7 mg/dl (0-1.1); BILIRUBIN,TOTAL 0.7 mg/dl (0.2-1.3); TOTAL PROTEIN 5.7 g/dl (6.1-8.1)
[2017-10-26 06:13] LABS: INR 1.17; PROTIME 15.1 Sec (11.9-14.9); PT RATIO 1.2
[2017-10-26 06:14] LABS: ALANINE AMINOTRANSFERASE 35 IU/L (13-69); ALBUMIN 2.9 g/dl (3.3-4.9); ALBUMIN/GLOBULIN RATIO 0.87; ALKALINE PHOSPHATASE 162 IU/L (42-121); ANION GAP 16 (8-16); ASPARTATE AMINO TRANSFERASE 28 IU/L (15-46); BILIRUBIN,INDIRECT 0.6 mg/dl (0-1.1); BILIRUBIN,TOTAL 0.6 mg/dl (0.2-1.3); BLOOD UREA NITROGEN 11 mg/dl (7-20); CALCIUM 8.4 mg/dl (8.4-10.2); CARBON DIOXIDE 20 mmol/L (21-31); CHLORIDE 103 mmol/L (97-110); CREATININE 0.71 mg/dl (0.44-1.00); GLUCOSE 75 mg/dl (70-220); PARTIAL THROMBOPLASTIN TIME 29.7 Sec (25.0-35.0); POTASSIUM 4.3 mmol/L (3.5-5.1); SODIUM 135 mmol/L (135-144); TOTAL PROTEIN 6.2 g/dl (6.1-8.1)
[2017-10-26] MEDS: POTASSIUM CHLORIDE 40 MEQ in SOD CHLORIDE 0.9% 1,000 ML IV ×3 (06:18→17:41)
[2017-10-26] MEDS: PANTOPRAZOLE 40 MG INJ IV (06:18)
[2017-10-26] MEDS ORDERED: EPHEDrine SULFATE 50 MG/5 ML SYG (07:00)
[2017-10-26 07:14] LABS: PHOSPHORUS 1.7 mg/dl (2.5-4.9)
[2017-10-26 07:14] LABS: MAGNESIUM 1.3 mg/dl (1.7-2.5)
[2017-10-26] MEDS ORDERED: PROPOFOL 40 ML (13:08)
[2017-10-26] MEDS ORDERED: SUCCINYLCHOLINE CHLORIDE 100 MG/5 ML SYG IV (13:18)
[2017-10-26] MEDS: MAGNESIUM SULFATE 4 GM/100 ML 100 ML IVPB (13:18)
[2017-10-26] MEDS ORDERED: ROCURONIUM 50 MG INJ (13:18)
[2017-10-26] MEDS ORDERED: MIDAZOLAM 1 MG/ML 2 ML INJ (13:20)
[2017-10-26] MEDS ORDERED: FENTAnyl 50 MCG/ML VIAL ×3 (13:20→15:09)
[2017-10-26] MEDS ORDERED: ONDANSETRON 4 MG INJ (13:22)
[2017-10-26] MEDS ORDERED: DEXAMETHASONE 4 MG/ML 1 ML INJ (13:24)
[2017-10-26] MEDS ORDERED: LIDOCAINE 100 MG SYRINGE (13:28)
[2017-10-26] MEDS ORDERED: SUGAMMADEX SODIUM 200 MG/2 ML VIAL IV (15:15)
[2017-10-26] MEDS ORDERED: LIDOCAINE 1% (MPF) 30 ML INJ (15:15)
[2017-10-26] MEDS: BUPIVACAINE 0.25% (MPF) 30 ML INJ (17:17)
[2017-10-26] MEDS ORDERED: HYDROCODONE/APAP (5/325) TAB PO (18:00)
[2017-10-26] MEDS ORDERED: HYDROmorphONE 0.5 MG/0.5 ML SYG IV (18:00)
[2017-10-26] MEDS ORDERED: DOCUSATE SODIUM 100 MG CAP PO (18:00)
[2017-10-26] MEDS ORDERED: FENTAnyl 50 MCG/ML VIAL IV ×3 (18:00)
[2017-10-26] MEDS ORDERED: HYDROmorphONE (0.2 MG/ML) 10ML SYG IV ×2 (18:00)
[2017-10-26] MEDS ORDERED: ONDANSETRON 4 MG INJ IV (18:00)
[2017-10-26] MEDS ORDERED: BISACODYL 10 MG SUPP PR (18:00)
[2017-10-26] MEDS ORDERED: HYDROmorphONE 1 MG/ML SYG IV (18:00)
[2017-10-26] MEDS: HYDROmorphONE (0.2 MG/ML) 10ML SYG IV (18:18)
[2017-10-26] MEDS: POTASSIUM PHOSPHATE 40 MEQ in SOD CHLORIDE 0.9% 250 ML IVPB (21:41)
[2017-10-27] MEDS: KETOROLAC 15 MG INJ IV (01:13)
[2017-10-27] MEDS: POTASSIUM CHLORIDE 40 MEQ in SOD CHLORIDE 0.9% 1,000 ML IV ×5 (03:36→23:48)
[2017-10-27 05:47] LABS: ADD MAN DIFF? NO
[2017-10-27 05:56] LABS: WHITE BLOOD COUNT 10.1 10^3/ul (4.8-10.8)
[2017-10-27 05:56] LABS: BASOPHIL # 0.1 10^3/ul (0.0-0.1); BASOPHILS % 0.6 % (0.0-2.0); EOSINOPHILS # 0.1 10^3/ul (0.0-0.5); EOSINOPHILS % 1.3 % (0.0-7.0); HEMATOCRIT 28.6 % (37.0-47.0); HEMOGLOBIN 10.3 g/dl (12.0-16.0); LYMPHOCYTES # 1.1 10^3/ul (0.8-2.9); LYMPHOCYTES % 10.7 % (15.0-51.0); MEAN CORPUSCULAR HEMOGLOBIN 32.1 pg (29.0-33.0); MEAN CORPUSCULAR VOLUME 89.1 fl (82.0-101.0); MONOCYTE # 0.4 10^3/ul (0.3-0.9); MONOCYTES % 4.2 % (0.0-11.0); NEUTROPHIL # 8.3 10^3/ul (1.6-7.5); NEUTROPHILS % 81.9 % (39.0-77.0); PLATELET COUNT 185 10^3/UL (140-415); RED BLOOD COUNT 3.21 10^6/ul (4.20-5.40); RED CELL DISTRIBUTION WIDTH 13.4 % (11.5-14.5)
[2017-10-27 06:09] LABS: INR 1.01; PROTIME 13.4 Sec (11.9-14.9)
[2017-10-27 06:10] LABS: PARTIAL THROMBOPLASTIN TIME 36.2 Sec (25.0-35.0)
[2017-10-27 06:20] LABS: B-TYPE NATRIURETIC PEPTIDE 1420 PG/ML (0-125)
[2017-10-27 06:25] LABS: ALANINE AMINOTRANSFERASE 37 IU/L (13-69); ALBUMIN 3.1 g/dl (3.3-4.9); ALBUMIN/GLOBULIN RATIO 0.96; ALKALINE PHOSPHATASE 172 IU/L (42-121); ANION GAP 16 (8-16); ASPARTATE AMINO TRANSFERASE 32 IU/L (15-46); BILIRUBIN,INDIRECT 0.5 mg/dl (0-1.1); BILIRUBIN,TOTAL 0.5 mg/dl (0.2-1.3); BLOOD UREA NITROGEN 12 mg/dl (7-20); CALCIUM 8.2 mg/dl (8.4-10.2); CARBON DIOXIDE 22 mmol/L (21-31); CHLORIDE 102 mmol/L (97-110); CREATININE 0.77 mg/dl (0.44-1.00); GLUCOSE 96 mg/dl (70-220); POTASSIUM 4.6 mmol/L (3.5-5.1); SODIUM 135 mmol/L (135-144)
[2017-10-27 06:26] LABS: TOTAL PROTEIN 6.3 g/dl (6.1-8.1)
[2017-10-27] MEDS: PANTOPRAZOLE 40 MG INJ IV (06:26)
[2017-10-27 07:36] LABS: MAGNESIUM 1.7 mg/dl (1.7-2.5)
[2017-10-27] MEDS: ENOXAPARIN 40 MG/0.4 ML SYG SC (09:54)
[2017-10-27] MEDS: HYDROCODONE/APAP (5/325) TAB PO (10:03)
[2017-10-27] MEDS: LORAZEPAM 2 MG INJ IV (23:59)
[2017-10-28] MEDS: PANTOPRAZOLE 40 MG INJ IV (06:26)
[2017-10-28 06:34] LABS: ANION GAP 14 (8-16); BLOOD UREA NITROGEN 11 mg/dl (7-20); CALCIUM 8.4 mg/dl (8.4-10.2); CARBON DIOXIDE 21 mmol/L (21-31); CHLORIDE 105 mmol/L (97-110); CREATININE 0.61 mg/dl (0.44-1.00); GLUCOSE 91 mg/dl (70-220); MAGNESIUM 1.3 mg/dl (1.7-2.5); PHOSPHORUS 1.6 mg/dl (2.5-4.9); POTASSIUM 4.4 mmol/L (3.5-5.1); SODIUM 136 mmol/L (135-144)
[2017-10-28] MEDS: ENOXAPARIN 40 MG/0.4 ML SYG SC (09:11)
[2017-10-28] MEDS: POTASSIUM CHLORIDE 40 MEQ in SOD CHLORIDE 0.9% 1,000 ML IV ×2 (10:31→17:17)
[2017-10-28] MEDS: MAGNESIUM OXIDE 400 MG TAB PO ×2 (10:38→20:02)
[2017-10-28] MEDS: POTASSIUM PHOSPHATE 20 MEQ in SOD CHLORIDE 0.9% 250 ML IVPB (10:39)
[2017-10-28] MEDS: BISACODYL 10 MG SUPP PR (10:49)
[2017-10-28] MEDS: NEUTRA-PHOS 250 MG PACKET PO ×2 (13:45→20:02)
[2017-10-28] MEDS: MAGNESIUM SULFATE 4 GM/100 ML 100 ML IVPB (15:32)
[2017-10-28] MEDS ORDERED: NA PHOSPHATE/BIPHOS 133 ML ENEMA PR ×2 (18:00)
[2017-10-29] MEDS: POTASSIUM CHLORIDE 40 MEQ in SOD CHLORIDE 0.9% 1,000 ML IV ×4 (00:05→23:22)
[2017-10-29 05:26] LABS: ANION GAP 12 (8-16); BLOOD UREA NITROGEN 7 mg/dl (7-20); CALCIUM 8.4 mg/dl (8.4-10.2); CARBON DIOXIDE 23 mmol/L (21-31); CHLORIDE 105 mmol/L (97-110); CREATININE 0.61 mg/dl (0.44-1.00); GLUCOSE 96 mg/dl (70-220); MAGNESIUM 2.1 mg/dl (1.7-2.5); PHOSPHORUS 2.2 mg/dl (2.5-4.9); POTASSIUM 3.9 mmol/L (3.5-5.1); SODIUM 136 mmol/L (135-144)
[2017-10-29] MEDS: PANTOPRAZOLE 40 MG INJ IV (05:57)
[2017-10-29] MEDS: MAGNESIUM OXIDE 400 MG TAB PO ×2 (09:33→22:26)
[2017-10-29] MEDS: NEUTRA-PHOS 250 MG PACKET PO ×3 (09:33→22:26)
[2017-10-29] MEDS: ENOXAPARIN 40 MG/0.4 ML SYG SC (09:36)
[2017-10-29] MEDS: BISACODYL 10 MG SUPP PR ×3 (09:40→23:23)
[2017-10-30] MEDS: HYDROCODONE/APAP (5/325) TAB PO (04:20)
[2017-10-30] MEDS: POTASSIUM CHLORIDE 40 MEQ in SOD CHLORIDE 0.9% 1,000 ML IV (05:56)
[2017-10-30] MEDS: PANTOPRAZOLE 40 MG INJ IV (05:57)
[2017-10-30] MEDS: NEUTRA-PHOS 250 MG PACKET PO ×2 (08:58→11:58)
[2017-10-30] MEDS: MAGNESIUM OXIDE 400 MG TAB PO (08:58)
[2017-10-30] MEDS: ENOXAPARIN 40 MG/0.4 ML SYG SC (08:59)
[2017-10-30] MEDS: BISACODYL 10 MG SUPP PR (11:58)
[2017-10-31] MEDS ORDERED: PANTOPRAZOLE (EC) 40 MG TAB PO (06:00)
== END 2017-10-30 16:35 | disposition home or self-care (01) | DRG 327 ==
LOC: MS1 10-24 18:20 → E/R 14:14 → MS3 16:59
PROC: 0D164ZA Bypass Stomach to Jejunum, Percutaneous Endoscopic Approach (ICD-10-PCS; principal; 2017-10-24 15:45)
PROC: 0DNW4ZZ Release Peritoneum, Percutaneous Endoscopic Approach (ICD-10-PCS; 2017-10-24 15:45)
PROC: 0DB98ZX Excision of Duodenum, Via Natural or Artificial Opening Endoscopic, Diagnostic (ICD-10-PCS; 2017-10-24 15:45)
DX: K31.5 Obstruction of duodenum (principal); C22.1 Intrahepatic bile duct carcinoma; C78.89 Secondary malignant neoplasm of other digestive organs; E87.1 Hypo-osmolality and hyponatremia; E87.3 Alkalosis; N17.9 Acute kidney failure, unspecified; C25.9 Malignant neoplasm of pancreas, unspecified; K31.1 Adult hypertrophic pyloric stenosis; R11.2 Nausea with vomiting, unspecified; E87.6 Hypokalemia; E86.0 Dehydration; D72.828 Other elevated white blood cell count; E66.01 Morbid (severe) obesity due to excess calories; Z68.35 Body mass index [BMI] 35.0-35.9, adult; K66.0 Peritoneal adhesions (postprocedural) (postinfection); Z90.49 Acquired absence of other specified parts of digestive tract
CPT/HCPCS: 36415; 74019; 80048; 80053; 80076; 81003; 81025; 83690; 83735; 83880; 84100; 85025; 85610; 85730; 86850; 86900; 86901; 88305; 93005; 96374; 96376; 99285-25

== ENCOUNTER 2018-01-15 05:15 | Inpatient (IN) | payer BC ==
[2018-01-15] MEDS: ONDANSETRON 4 MG INJ IV (06:04)
[2018-01-15 06:05] LABS: WHITE BLOOD COUNT 13.8 10^3/ul (4.8-10.8)
[2018-01-15 06:05] LABS: HEMATOCRIT 31.6 % (37.0-47.0); HEMOGLOBIN 10.7 g/dl (12.0-16.0); MEAN CORPUSCULAR HEMOGLOBIN 30.5 pg (29.0-33.0); MEAN CORPUSCULAR HGB CONC 33.9 g/dl (32.0-37.0); MEAN PLATELET VOLUME 12.4 fl (7.4-10.4); NUCLEATED RED BLOOD CELLS% 0.4 /100WBC (0.0-0.0); PLATELET COUNT 163 10^3/UL (140-415); RED BLOOD COUNT 3.51 10^6/ul (4.20-5.40); RED CELL DISTRIBUTION WIDTH 14.8 % (11.5-14.5)
[2018-01-15] MEDS: morphine 4 MG/ML VIAL IV (06:05)
[2018-01-15] MEDS: SOD CHLORIDE 0.9% 500 ML IV (06:06)
[2018-01-15 06:24] LABS: ADD MAN DIFF? YES; POSITIVE DIFF @See below
[2018-01-15 06:33] LABS: ALANINE AMINOTRANSFERASE 44 IU/L (13-69); ALBUMIN 3.1 g/dl (3.3-4.9); ALBUMIN/GLOBULIN RATIO 0.81; ANION GAP 24 (8-16); ASPARTATE AMINO TRANSFERASE 44 IU/L (15-46); BILIRUBIN,TOTAL 2.7 mg/dl (0.2-1.3); BLOOD UREA NITROGEN 26 mg/dl (7-20); CALCIUM 8.4 mg/dl (8.4-10.2); CARBON DIOXIDE 16 mmol/L (21-31); CHLORIDE 100 mmol/L (97-110); CREATININE 1.12 mg/dl (0.44-1.00); GLUCOSE 78 mg/dl (70-220); LIPASE 173 U/L (23-300); SODIUM 138 mmol/L (135-144); TOTAL PROTEIN 6.9 g/dl (6.1-8.1)
[2018-01-15 06:45] LABS: TROPONIN-I 0.066 ng/ml (0.000-0.120)
[2018-01-15 06:48] LABS: ALKALINE PHOSPHATASE 2337 IU/L (42-121); INR 1.32; PROTIME 16.6 Sec (11.9-14.9); PT RATIO 1.3
[2018-01-15 06:49] LABS: PARTIAL THROMBOPLASTIN TIME 40.6 Sec (25.0-35.0); POTASSIUM 2.4 mmol/L (3.5-5.1)
[2018-01-15 06:51] LABS: LACTIC ACID 11.1 mmol/L (0.5-2.0)
[2018-01-15] MEDS: SODIUM CHLORIDE 0.9% 1L BAG IV* (06:57)
[2018-01-15 06:59] LABS: ANISOCYTOSIS 2+ (0-0); BAND NEUTROPHILS #M 1.3 10^3/ul (0.0-0.6); BAND NEUTROPHILS % (M) 10 % (0-4); BURR CELLS 1+ (0-0); LYMPHOCYTES #M 0.8 10^3/ul (0.8-2.9); LYMPHOCYTES % (M) 6 % (15-51); PLATELET ESTIMATE NORMAL; POIKILOCYTOSIS 1+ (0-0); SEG NEUT #M 11.8 10^3/ul (1.6-7.5); SEGMENTED NEUTROPHILS (M) % 84 % (39-77); SMUDGE%M 62 % (0-0)
[2018-01-15] MEDS: IOHEXOL 300MG/ML 150 ML BTL (07:15)
[2018-01-15] MEDS: SOD CHLORIDE 0.9% 100 ML (07:16)
[2018-01-15] MEDS: POTASSIUM CHLORIDE (SR) 20 MEQ TAB PO (07:35)
[2018-01-15] MEDS: CEFEPIME 1GM/50 ML (PMX) 50 ML IVPB (07:35)
[2018-01-15] MEDS: POTASSIUM CHLORIDE 50 ML IVPB ×3 (07:51→10:48)
[2018-01-15] MEDS: VANCOMYCIN 1 GM (PMX) 250 ML IVPB (07:56)
[2018-01-15] MEDS ORDERED: ONDANSETRON 4 MG INJ IV ×2 (08:30→10:30)
[2018-01-15] MEDS ORDERED: ACETAMINOPHEN 325 MG TAB PO (08:30)
[2018-01-15] MEDS ORDERED: NORepinephrine 8MG/250 ML (PMX 250 ML (09:24)
[2018-01-15] MEDS: NORepinephrine 8MG/250 ML (PMX 250 ML IV ×2 (09:39→22:14)
[2018-01-15] MEDS ORDERED: DOCUSATE SODIUM 100 MG CAP PO (10:30)
[2018-01-15] MEDS ORDERED: MAGNESIUM HYDROXIDE 30ML CUP PO (10:30)
[2018-01-15] MEDS ORDERED: BISACODYL (EC) 5 MG TAB PO (10:30)
[2018-01-15 10:47] LABS: LACTIC ACID 5.1 mmol/L (0.5-2.0)
[2018-01-15] MEDS ORDERED: VANCOMYCIN IV PER PHARMACY XX (11:00)
[2018-01-15] MEDS: SOD CHLORIDE 0.9% 1,000 ML IV ×2 (11:03→20:43)
[2018-01-15] MEDS: morphine 2 MG INJ IV ×2 (11:14→18:18)
[2018-01-15] MEDS: PIPER-TAZO 3.375 GM IV (PMX) 100 ML IVPB ×2 (11:14→20:43)
[2018-01-15 12:34] LABS: LACTIC ACID 4.3 mmol/L (0.5-2.0)
[2018-01-15 12:50] LABS: HEMOGLOBIN A1C 5.3 % (0-5.9)
[2018-01-15] MEDS: VANCOMYCIN 750 MG in SOD CHLORIDE 0.9% 150 ML IVPB (16:20)
[2018-01-15 18:56] LABS: ALANINE AMINOTRANSFERASE 42 IU/L (13-69); ALBUMIN 2.8 g/dl (3.3-4.9); ALBUMIN/GLOBULIN RATIO 0.77; ALKALINE PHOSPHATASE 820 IU/L (42-121); ANION GAP 17 (8-16); ASPARTATE AMINO TRANSFERASE 38 IU/L (15-46); BILIRUBIN,INDIRECT 0.9 mg/dl (0-1.1); BILIRUBIN,TOTAL 2.4 mg/dl (0.2-1.3); BLOOD UREA NITROGEN 26 mg/dl (7-20); CALCIUM 7.9 mg/dl (8.4-10.2); CARBON DIOXIDE 20 mmol/L (21-31); CHLORIDE 106 mmol/L (97-110); CREATININE 1.12 mg/dl (0.44-1.00); GLUCOSE 107 mg/dl (70-220); POTASSIUM 3.6 mmol/L (3.5-5.1); SODIUM 139 mmol/L (135-144); TOTAL PROTEIN 6.4 g/dl (6.1-8.1)
[2018-01-15] MEDS ORDERED: FAMOTIDINE 20 MG INJ IV (21:00)
[2018-01-15] MEDS: BARIUM SULF 2% 450 ML BTL (BERRY SMOOTHIE) PO (21:30)
[2018-01-15] MEDS: OXYCODONE/ACETAMINOPHEN (5/325) TAB PO (22:12)
[2018-01-16] MEDS: VANCOMYCIN 750 MG in SOD CHLORIDE 0.9% 150 ML IVPB ×2 (03:03→16:23)
[2018-01-16] MEDS: SOD CHLORIDE 0.9% 1,000 ML IV ×3 (05:27→18:57)
[2018-01-16] MEDS: PIPER-TAZO 3.375 GM IV (PMX) 100 ML IVPB ×4 (05:28→18:57)
[2018-01-16] MEDS: PANTOPRAZOLE 40 MG INJ IV (05:28)
[2018-01-16] MEDS: morphine 2 MG INJ IV ×2 (05:30→14:19)
[2018-01-16 05:33] LABS: WHITE BLOOD COUNT 40.8 10^3/ul (4.8-10.8)
[2018-01-16 05:33] LABS: ABNORMAL IP MESSAGE 1; HEMATOCRIT 26.2 % (37.0-47.0); HEMOGLOBIN 8.7 g/dl (12.0-16.0); MEAN CORPUSCULAR HGB CONC 33.2 g/dl (32.0-37.0); MEAN CORPUSCULAR VOLUME 93.2 fl (82.0-101.0); MEAN PLATELET VOLUME 12.3 fl (7.4-10.4); NUCLEATED RED BLOOD CELLS% 0.1 /100WBC (0.0-0.0); PLATELET COUNT 140 10^3/UL (140-415); RED BLOOD COUNT 2.81 10^6/ul (4.20-5.40); RED CELL DISTRIBUTION WIDTH 15.5 % (11.5-14.5)
[2018-01-16 05:57] LABS: MAGNESIUM 2.1 mg/dl (1.7-2.5)
[2018-01-16 06:02] LABS: ALANINE AMINOTRANSFERASE 42 IU/L (13-69); ALBUMIN 2.5 g/dl (3.3-4.9); ALBUMIN/GLOBULIN RATIO 0.67; ALKALINE PHOSPHATASE 722 IU/L (42-121); ANION GAP 14 (8-16); ASPARTATE AMINO TRANSFERASE 30 IU/L (15-46); BILIRUBIN,INDIRECT 0.8 mg/dl (0-1.1); BILIRUBIN,TOTAL 1.8 mg/dl (0.2-1.3); BLOOD UREA NITROGEN 24 mg/dl (7-20); CALCIUM 8.2 mg/dl (8.4-10.2); CARBON DIOXIDE 22 mmol/L (21-31); CHLORIDE 110 mmol/L (97-110); CREATININE 0.94 mg/dl (0.44-1.00); GLUCOSE 83 mg/dl (70-220); POTASSIUM 3.4 mmol/L (3.5-5.1); SODIUM 143 mmol/L (135-144); TOTAL PROTEIN 6.2 g/dl (6.1-8.1)
[2018-01-16 06:17] LABS: POSITIVE DIFF @See below
[2018-01-16 06:18] LABS: ADD MAN DIFF? YES
[2018-01-16 07:31] LABS: ANISOCYTOSIS 1+ (0-0); BAND NEUTROPHILS #M 5.7 10^3/ul (0.0-0.6); BAND NEUTROPHILS % (M) 14 % (0-4); LYMPHOCYTES % (M) 5 % (15-51); MONOCYTES % (M) 5 % (0-11); PLATELET ESTIMATE NORMAL; POLYCHROMASIA 2+ (0-0); RBC MORPHOLOGY COMMENT @See below; REACTIVE LYMPHOCYTES #M 0.4 10^3/ul (0.0-0.0); REACTIVE LYMPHOCYTES% (M) 1 % (0-0); SEG NEUT #M 32.9 10^3/ul (1.6-7.5); SEGMENTED NEUTROPHILS (M) % 75 % (39-77); SMUDGE%M 8 % (0-0); WBC MORPHOLOGY COMMENT @See below
[2018-01-16] MEDS: POTASSIUM CHLORIDE 100 ML IVPB ×2 (10:13→21:32)
[2018-01-16] MEDS: OXYCODONE/ACETAMINOPHEN (5/325) TAB PO ×2 (10:20→16:23)
[2018-01-16 15:08] LABS: VANCOMYCIN,TROUGH 13.5 ug/ml (10.0-20.0)
[2018-01-16] MEDS: LIDOCAINE 1% (MDV) 10 ML INJ (15:25)
[2018-01-16] MEDS ORDERED: NORepinephrine 8MG/250 ML (PMX 250 ML (23:45)
[2018-01-17] MEDS: PIPER-TAZO 3.375 GM IV (PMX) 100 ML IVPB ×5 (00:20→23:43)
[2018-01-17] MEDS: NORepinephrine 8MG/250 ML (PMX 250 ML IV ×2 (00:22→18:34)
[2018-01-17] MEDS: ACETAMINOPHEN 650MG/20.3ML CUP PO (00:29)
[2018-01-17] MEDS: VANCOMYCIN 750 MG in SOD CHLORIDE 0.9% 150 ML IVPB ×2 (03:06→15:45)
[2018-01-17 05:02] LABS: ADD MAN DIFF? NO
[2018-01-17 05:05] LABS: HEMATOCRIT 24.2 % (37.0-47.0); HEMOGLOBIN 7.9 g/dl (12.0-16.0); MEAN CORPUSCULAR VOLUME 93.4 fl (82.0-101.0); RED BLOOD COUNT 2.59 10^6/ul (4.20-5.40)
[2018-01-17 05:05] LABS: WHITE BLOOD COUNT 30.4 10^3/ul (4.8-10.8)
[2018-01-17 05:06] LABS: ABNORMAL IP MESSAGE 1; BASOPHIL # 0.2 10^3/ul (0.0-0.1); BASOPHILS % 0.5 % (0.0-2.0); EOSINOPHILS # 0.2 10^3/ul (0.0-0.5); EOSINOPHILS % 0.6 % (0.0-7.0); LYMPHOCYTES # 2.8 10^3/ul (0.8-2.9); LYMPHOCYTES % 9.3 % (15.0-51.0); MEAN CORPUSCULAR HEMOGLOBIN 30.5 pg (29.0-33.0); MEAN CORPUSCULAR HGB CONC 32.6 g/dl (32.0-37.0); MEAN PLATELET VOLUME 12.7 fl (7.4-10.4); MONOCYTE # 0.9 10^3/ul (0.3-0.9); MONOCYTES % 3.1 % (0.0-11.0); NEUTROPHIL # 25.4 10^3/ul (1.6-7.5); NEUTROPHILS % 83.6 % (39.0-77.0); PLATELET COUNT 131 10^3/UL (140-415); RED CELL DISTRIBUTION WIDTH 15.9 % (11.5-14.5)
[2018-01-17 05:37] LABS: ANION GAP 12 (8-16); BLOOD UREA NITROGEN 16 mg/dl (7-20); CALCIUM 7.8 mg/dl (8.4-10.2); CARBON DIOXIDE 22 mmol/L (21-31); CHLORIDE 109 mmol/L (97-110); CREATININE 0.87 mg/dl (0.44-1.00); GLUCOSE 115 mg/dl (70-220); POTASSIUM 3.4 mmol/L (3.5-5.1); SODIUM 140 mmol/L (135-144)
[2018-01-17 05:43] LABS: POSITIVE DIFF @See below
[2018-01-17] MEDS: PANTOPRAZOLE 40 MG INJ IV (05:51)
[2018-01-17 09:28] LABS: ALANINE AMINOTRANSFERASE 33 IU/L (13-69); ALBUMIN 2.3 g/dl (3.3-4.9); ALKALINE PHOSPHATASE 631 IU/L (42-121); ASPARTATE AMINO TRANSFERASE 24 IU/L (15-46); BILIRUBIN,INDIRECT 0.9 mg/dl (0-1.1); BILIRUBIN,TOTAL 1.3 mg/dl (0.2-1.3)
[2018-01-17] MEDS: OXYCODONE/ACETAMINOPHEN (5/325) TAB PO ×2 (09:36→21:40)
[2018-01-17 09:57] LABS: ADD UMIC YES; UR AMORPHOUS CRYSTAL FEW /HPF (NONE SEEN); UR ASCORBIC ACID NEGATIVE (NEGATIVE); UR BACTERIA FEW /HPF (NONE SEEN); UR BILIRUBIN (Dip) NEGATIVE (NEGATIVE); UR BLOOD (Dip) NEGATIVE (NEGATIVE); UR CLARITY CLOUDY (CLEAR); UR COLOR AMBER (YELLOW); UR GLUCOSE (Dip) NEGATIVE (NEGATIVE); UR KETONES (Dip) NEGATIVE (NEGATIVE); UR LEUKOCYTE ESTERASE (Dip) NEGATIVE Leu/ul (NEGATIVE); UR NITRITE (Dip) NEGATIVE (NEGATIVE); UR RBC 0 /HPF (0-5); UR SPECIFIC GRAVITY (Dip) 1.026 (1.003-1.030); UR SQUAMOUS EPITHELIAL CELL FEW /HPF (FEW); UR TOTAL PROTEIN (Dip) 1+ mg/dl (NEGATIVE); UR UROBILINOGEN (Dip) NEGATIVE (NEGATIVE); UR WBC 10 /HPF (0-5)
[2018-01-17] MEDS: POTASSIUM CHLORIDE 20 MEQ POWDER FOR ORAL SOLN PO (10:18)
[2018-01-17] MEDS: SOD CHLORIDE 0.9% 1,000 ML IV ×2 (13:15→22:23)
[2018-01-17] MEDS ORDERED: morphine LIQ (10 MG/5 ML) CUP PO (14:00)
[2018-01-18] MEDS: VANCOMYCIN 750 MG in SOD CHLORIDE 0.9% 150 ML IVPB ×2 (03:00→15:35)
[2018-01-18 05:21] LABS: HEMATOCRIT 23.4 % (37.0-47.0); HEMOGLOBIN 7.7 g/dl (12.0-16.0); MEAN CORPUSCULAR HEMOGLOBIN 30.9 pg (29.0-33.0); MEAN CORPUSCULAR HGB CONC 32.9 g/dl (32.0-37.0); MEAN PLATELET VOLUME 12.5 fl (7.4-10.4); PLATELET COUNT 143 10^3/UL (140-415); RED BLOOD COUNT 2.49 10^6/ul (4.20-5.40); RED CELL DISTRIBUTION WIDTH 15.6 % (11.5-14.5)
[2018-01-18 05:21] LABS: WHITE BLOOD COUNT 18.4 10^3/ul (4.8-10.8)
[2018-01-18 05:32] LABS: POSITIVE DIFF @See below
[2018-01-18 05:32] LABS: LACTIC ACID 1.6 mmol/L (0.5-2.0)
[2018-01-18 05:33] LABS: ADD MAN DIFF? YES
[2018-01-18 05:39] LABS: ALANINE AMINOTRANSFERASE 30 IU/L (13-69); ALBUMIN 2.2 g/dl (3.3-4.9); ALBUMIN/GLOBULIN RATIO 0.59; ALKALINE PHOSPHATASE 522 IU/L (42-121); ANION GAP 9 (8-16); ASPARTATE AMINO TRANSFERASE 18 IU/L (15-46); BILIRUBIN,INDIRECT 0.8 mg/dl (0-1.1); BILIRUBIN,TOTAL 0.8 mg/dl (0.2-1.3); BLOOD UREA NITROGEN 9 mg/dl (7-20); CALCIUM 7.6 mg/dl (8.4-10.2); CARBON DIOXIDE 21 mmol/L (21-31); CHLORIDE 112 mmol/L (97-110); CREATININE 0.77 mg/dl (0.44-1.00); GLUCOSE 110 mg/dl (70-220); POTASSIUM 3.3 mmol/L (3.5-5.1); SODIUM 139 mmol/L (135-144); TOTAL PROTEIN 5.9 g/dl (6.1-8.1)
[2018-01-18] MEDS: OXYCODONE/ACETAMINOPHEN (5/325) TAB PO ×3 (06:01→19:30)
[2018-01-18] MEDS: PANTOPRAZOLE 40 MG INJ IV (06:02)
[2018-01-18] MEDS: PIPER-TAZO 3.375 GM IV (PMX) 100 ML IVPB ×4 (06:02→23:33)
[2018-01-18 07:01] LABS: ANISOCYTOSIS 1+ (0-0); BAND NEUTROPHILS #M 0.1 10^3/ul (0.0-0.6); BAND NEUTROPHILS % (M) 1 % (0-4); EOSINOPHILS % (M) 2 % (0-7); GIANT THROMBO% (M) 1 % (0-0); LYMPHOCYTES #M 3.8 10^3/ul (0.8-2.9); LYMPHOCYTES % (M) 21 % (15-51); MONOCYTE #M 0.9 10^3/ul (0.3-0.9); MONOCYTES % (M) 5 % (0-11); PLATELET ESTIMATE NORMAL; POLYCHROMASIA 1+ (0-0); REACTIVE LYMPHOCYTES #M 0.1 10^3/ul (0.0-0.0); REACTIVE LYMPHOCYTES% (M) 1 % (0-0); SEG NEUT #M 12.9 10^3/ul (1.6-7.5); SEGMENTED NEUTROPHILS (M) % 70 % (39-77); SMUDGE%M 15 % (0-0)
[2018-01-18 08:18] LABS: MAGNESIUM 1.7 mg/dl (1.7-2.5)
[2018-01-18] MEDS: POTASSIUM CHLORIDE 100 ML IVPB ×3 (10:40→14:06)
[2018-01-18] MEDS: NORepinephrine 8MG/250 ML (PMX 250 ML IV (10:53)
[2018-01-18] MEDS: SOD CHLORIDE 0.9% 1,000 ML IV ×2 (10:54→18:30)
[2018-01-19] MEDS: SOD CHLORIDE 0.9% 1,000 ML IV ×2 (01:37→15:24)
[2018-01-19] MEDS: OXYCODONE/ACETAMINOPHEN (5/325) TAB PO ×4 (01:43→21:32)
[2018-01-19] MEDS: PIPER-TAZO 3.375 GM IV (PMX) 100 ML IVPB ×2 (05:28→13:46)
[2018-01-19] MEDS: PANTOPRAZOLE 40 MG INJ IV (05:28)
[2018-01-19 05:40] LABS: ADD MAN DIFF? NO
[2018-01-19 05:42] LABS: BASOPHIL # 0.1 10^3/ul (0.0-0.1); BASOPHILS % 0.5 % (0.0-2.0); EOSINOPHILS # 0.1 10^3/ul (0.0-0.5); EOSINOPHILS % 1.3 % (0.0-7.0); HEMATOCRIT 22.8 % (37.0-47.0); HEMOGLOBIN 7.4 g/dl (12.0-16.0); LYMPHOCYTES # 1.7 10^3/ul (0.8-2.9); LYMPHOCYTES % 16.3 % (15.0-51.0); MEAN CORPUSCULAR HEMOGLOBIN 30.2 pg (29.0-33.0); MEAN CORPUSCULAR HGB CONC 32.5 g/dl (32.0-37.0); MEAN CORPUSCULAR VOLUME 93.1 fl (82.0-101.0); MEAN PLATELET VOLUME 11.1 fl (7.4-10.4); MONOCYTE # 0.6 10^3/ul (0.3-0.9); MONOCYTES % 5.4 % (0.0-11.0); NEUTROPHIL # 7.7 10^3/ul (1.6-7.5); NEUTROPHILS % 73.6 % (39.0-77.0); PLATELET COUNT 164 10^3/UL (140-415); RED BLOOD COUNT 2.45 10^6/ul (4.20-5.40); RED CELL DISTRIBUTION WIDTH 15.4 % (11.5-14.5)
[2018-01-19 05:42] LABS: WHITE BLOOD COUNT 10.5 10^3/ul (4.8-10.8)
[2018-01-19 06:09] LABS: MAGNESIUM 1.5 mg/dl (1.7-2.5)
[2018-01-19 06:15] LABS: ALANINE AMINOTRANSFERASE 32 IU/L (13-69); ALBUMIN/GLOBULIN RATIO 0.55; ALKALINE PHOSPHATASE 555 IU/L (42-121); ANION GAP 8 (8-16); ASPARTATE AMINO TRANSFERASE 20 IU/L (15-46); BILIRUBIN,INDIRECT 0.6 mg/dl (0-1.1); BILIRUBIN,TOTAL 0.6 mg/dl (0.2-1.3); BLOOD UREA NITROGEN 4 mg/dl (7-20); CALCIUM 7.5 mg/dl (8.4-10.2); CARBON DIOXIDE 21 mmol/L (21-31); CHLORIDE 112 mmol/L (97-110); CREATININE 0.64 mg/dl (0.44-1.00); GLUCOSE 89 mg/dl (70-220); POTASSIUM 3.7 mmol/L (3.5-5.1); SODIUM 137 mmol/L (135-144); TOTAL PROTEIN 5.6 g/dl (6.1-8.1)
[2018-01-19] MEDS: MAGNESIUM SULFATE 2 GM/50 ML 50 ML IVPB (10:15)
[2018-01-19] MEDS: LORAZEPAM 2 MG INJ IV (12:14)
[2018-01-19 13:55] LABS: IMMEDIATE SPIN CROSSMATCH 1 1
[2018-01-19] MEDS: CASPOFUNGIN 70 MG in SOD CHLORIDE 0.9% 250 ML IVPB (18:36)
[2018-01-19] MEDS: CEFOTAXIME 1 GM/50 ML (PMX) 50 ML IVPB (21:32)
[2018-01-20] MEDS: SOD CHLORIDE 0.9% 1,000 ML IV (00:55)
[2018-01-20] MEDS: OXYCODONE/ACETAMINOPHEN (5/325) TAB PO ×2 (04:16→16:59)
[2018-01-20 05:13] LABS: ADD MAN DIFF? NO
[2018-01-20 05:22] LABS: BASOPHIL # 0.1 10^3/ul (0.0-0.1); BASOPHILS % 0.5 % (0.0-2.0); EOSINOPHILS # 0.1 10^3/ul (0.0-0.5); EOSINOPHILS % 1.5 % (0.0-7.0); HEMATOCRIT 27.1 % (37.0-47.0); LYMPHOCYTES # 1.8 10^3/ul (0.8-2.9); LYMPHOCYTES % 18.8 % (15.0-51.0); MEAN CORPUSCULAR HEMOGLOBIN 30.3 pg (29.0-33.0); MEAN CORPUSCULAR HGB CONC 33.2 g/dl (32.0-37.0); MEAN CORPUSCULAR VOLUME 91.2 fl (82.0-101.0); MEAN PLATELET VOLUME 11.2 fl (7.4-10.4); MONOCYTE # 0.5 10^3/ul (0.3-0.9); MONOCYTES % 5.7 % (0.0-11.0); NEUTROPHIL # 6.7 10^3/ul (1.6-7.5); NEUTROPHILS % 70.3 % (39.0-77.0); PLATELET COUNT 241 10^3/UL (140-415); RED BLOOD COUNT 2.97 10^6/ul (4.20-5.40); RED CELL DISTRIBUTION WIDTH 15.3 % (11.5-14.5)
[2018-01-20 05:22] LABS: WHITE BLOOD COUNT 9.5 10^3/ul (4.8-10.8)
[2018-01-20 05:40] LABS: MAGNESIUM 1.8 mg/dl (1.7-2.5)
[2018-01-20 05:42] LABS: ALANINE AMINOTRANSFERASE 31 IU/L (13-69); ALBUMIN 2.4 g/dl (3.3-4.9); ALBUMIN/GLOBULIN RATIO 0.63; ALKALINE PHOSPHATASE 557 IU/L (42-121); ANION GAP 8 (8-16); ASPARTATE AMINO TRANSFERASE 22 IU/L (15-46); BILIRUBIN,INDIRECT 0.7 mg/dl (0-1.1); BILIRUBIN,TOTAL 0.7 mg/dl (0.2-1.3); BLOOD UREA NITROGEN 3 mg/dl (7-20); CALCIUM 7.8 mg/dl (8.4-10.2); CARBON DIOXIDE 23 mmol/L (21-31); CHLORIDE 111 mmol/L (97-110); CREATININE 0.57 mg/dl (0.44-1.00); GLUCOSE 89 mg/dl (70-220); POTASSIUM 3.5 mmol/L (3.5-5.1); SODIUM 138 mmol/L (135-144); TOTAL PROTEIN 6.2 g/dl (6.1-8.1)
[2018-01-20] MEDS: PANTOPRAZOLE 40 MG INJ IV (06:19)
[2018-01-20] MEDS: CEFOTAXIME 1 GM/50 ML (PMX) 50 ML IVPB ×3 (06:20→22:02)
[2018-01-20] MEDS: LORAZEPAM 2 MG INJ IV ×2 (08:52→22:11)
[2018-01-20] MEDS: POTASSIUM CHLORIDE 20 MEQ POWDER FOR ORAL SOLN PO (10:06)
[2018-01-20] MEDS: CASPOFUNGIN 50 MG in SOD CHLORIDE 0.9% 250 ML IVPB (18:40)
[2018-01-21] MEDS: OXYCODONE/ACETAMINOPHEN (5/325) TAB PO ×4 (00:26→21:27)
[2018-01-21] MEDS: PANTOPRAZOLE 40 MG INJ IV (05:50)
[2018-01-21] MEDS: CEFOTAXIME 1 GM/50 ML (PMX) 50 ML IVPB ×3 (05:50→21:25)
[2018-01-21 07:42] LABS: ADD MAN DIFF? NO
[2018-01-21 07:49] LABS: WHITE BLOOD COUNT 7.3 10^3/ul (4.8-10.8)
[2018-01-21 07:49] LABS: BASOPHIL # 0.1 10^3/ul (0.0-0.1); EOSINOPHILS # 0.1 10^3/ul (0.0-0.5); EOSINOPHILS % 1.5 % (0.0-7.0); HEMATOCRIT 27.9 % (37.0-47.0); HEMOGLOBIN 9.1 g/dl (12.0-16.0); LYMPHOCYTES # 1.7 10^3/ul (0.8-2.9); LYMPHOCYTES % 22.8 % (15.0-51.0); MEAN CORPUSCULAR HEMOGLOBIN 29.6 pg (29.0-33.0); MEAN CORPUSCULAR HGB CONC 32.6 g/dl (32.0-37.0); MEAN CORPUSCULAR VOLUME 90.9 fl (82.0-101.0); MEAN PLATELET VOLUME 10.4 fl (7.4-10.4); MONOCYTE # 0.4 10^3/ul (0.3-0.9); MONOCYTES % 5.9 % (0.0-11.0); NEUTROPHIL # 4.8 10^3/ul (1.6-7.5); NEUTROPHILS % 65.9 % (39.0-77.0); PLATELET COUNT 322 10^3/UL (140-415); RED BLOOD COUNT 3.07 10^6/ul (4.20-5.40); RED CELL DISTRIBUTION WIDTH 15.6 % (11.5-14.5)
[2018-01-21 08:08] LABS: ALANINE AMINOTRANSFERASE 28 IU/L (13-69); ALBUMIN 2.4 g/dl (3.3-4.9); ALKALINE PHOSPHATASE 486 IU/L (42-121); ANION GAP 9 (8-16); ASPARTATE AMINO TRANSFERASE 21 IU/L (15-46); BILIRUBIN,INDIRECT 0.7 mg/dl (0-1.1); BILIRUBIN,TOTAL 0.7 mg/dl (0.2-1.3); BLOOD UREA NITROGEN 3 mg/dl (7-20); CALCIUM 8.2 mg/dl (8.4-10.2); CARBON DIOXIDE 23 mmol/L (21-31); CHLORIDE 110 mmol/L (97-110); CREATININE 0.51 mg/dl (0.44-1.00); GLUCOSE 91 mg/dl (70-220); POTASSIUM 3.3 mmol/L (3.5-5.1); SODIUM 139 mmol/L (135-144); TOTAL PROTEIN 6.4 g/dl (6.1-8.1)
[2018-01-21 08:08] LABS: MAGNESIUM 1.5 mg/dl (1.7-2.5)
[2018-01-21] MEDS: LORAZEPAM 2 MG INJ IV (13:05)
[2018-01-21] MEDS ORDERED: OXYCODONE/ACETAMINOPHEN (5/325) TAB PO (14:00)
[2018-01-21] MEDS: SOD CHLORIDE 0.9% 100 ML (14:40)
[2018-01-21] MEDS: IOHEXOL 300MG/ML 150 ML BTL (14:40)
[2018-01-21 15:19] LABS: CANCER ANTIGEN 19-9 72.5 U/ml (0.0-37.0)
[2018-01-21] MEDS: BALSAM PERU/CASTOR OIL 60 GM TUBE TOP (16:16)
[2018-01-22] MEDS: OXYCODONE/ACETAMINOPHEN (5/325) TAB PO ×4 (04:41→20:51)
[2018-01-22] MEDS: CEFOTAXIME 1 GM/50 ML (PMX) 50 ML IVPB ×3 (04:41→20:51)
[2018-01-22] MEDS: PANTOPRAZOLE 40 MG INJ IV (04:42)
[2018-01-22] MEDS: LORAZEPAM 2 MG INJ IV ×3 (05:45→22:18)
[2018-01-22 07:49] LABS: ADD MAN DIFF? NO
[2018-01-22 07:59] LABS: BASOPHIL # 0.1 10^3/ul (0.0-0.1); BASOPHILS % 1.4 % (0.0-2.0); EOSINOPHILS # 0.1 10^3/ul (0.0-0.5); EOSINOPHILS % 1.4 % (0.0-7.0); HEMATOCRIT 28.2 % (37.0-47.0); HEMOGLOBIN 9.4 g/dl (12.0-16.0); LYMPHOCYTES # 1.4 10^3/ul (0.8-2.9); LYMPHOCYTES % 19.3 % (15.0-51.0); MEAN CORPUSCULAR HEMOGLOBIN 30.9 pg (29.0-33.0); MEAN CORPUSCULAR HGB CONC 33.3 g/dl (32.0-37.0); MEAN CORPUSCULAR VOLUME 92.8 fl (82.0-101.0); MEAN PLATELET VOLUME 10.4 fl (7.4-10.4); MONOCYTE # 0.4 10^3/ul (0.3-0.9); NEUTROPHIL # 4.9 10^3/ul (1.6-7.5); NEUTROPHILS % 70.2 % (39.0-77.0); PLATELET COUNT 382 10^3/UL (140-415); RED BLOOD COUNT 3.04 10^6/ul (4.20-5.40)
[2018-01-22 08:28] LABS: ALANINE AMINOTRANSFERASE 15 IU/L (13-69); ALBUMIN 2.7 g/dl (3.3-4.9); ALBUMIN/GLOBULIN RATIO 0.62; ALKALINE PHOSPHATASE 475 IU/L (42-121); ANION GAP 10 (8-16); ASPARTATE AMINO TRANSFERASE 24 IU/L (15-46); BILIRUBIN,INDIRECT 0.4 mg/dl (0-1.1); BILIRUBIN,TOTAL 0.4 mg/dl (0.2-1.3); CALCIUM 8.3 mg/dl (8.4-10.2); CARBON DIOXIDE 27 mmol/L (21-31); CHLORIDE 105 mmol/L (97-110); CREATININE 0.51 mg/dl (0.44-1.00); GLUCOSE 92 mg/dl (70-220); MAGNESIUM 1.7 mg/dl (1.7-2.5); POTASSIUM 3.4 mmol/L (3.5-5.1); SODIUM 139 mmol/L (135-144)
[2018-01-22 08:49] LABS: BLOOD UREA NITROGEN < 2 mg/dl (7-20)
[2018-01-22] MEDS: BALSAM PERU/CASTOR OIL 60 GM TUBE TOP (09:19)
[2018-01-22] MEDS: POTASSIUM CHLORIDE (SR) 20 MEQ TAB PO (12:43)
[2018-01-23] MEDS: CEFOTAXIME 1 GM/50 ML (PMX) 50 ML IVPB ×3 (05:50→21:36)
[2018-01-23] MEDS: PANTOPRAZOLE 40 MG INJ IV (05:52)
[2018-01-23] MEDS: BALSAM PERU/CASTOR OIL 60 GM TUBE TOP (09:15)
[2018-01-23] MEDS: OXYCODONE/ACETAMINOPHEN (5/325) TAB PO ×2 (09:17→20:03)
[2018-01-23 09:34] LABS: ADD MAN DIFF? NO
[2018-01-23 09:39] LABS: BASOPHIL # 0.1 10^3/ul (0.0-0.1); BASOPHILS % 1.6 % (0.0-2.0); EOSINOPHILS # 0.2 10^3/ul (0.0-0.5); EOSINOPHILS % 2.5 % (0.0-7.0); HEMATOCRIT 31.5 % (37.0-47.0); HEMOGLOBIN 10.3 g/dl (12.0-16.0); LYMPHOCYTES % 31.4 % (15.0-51.0); MEAN CORPUSCULAR HEMOGLOBIN 30.7 pg (29.0-33.0); MEAN CORPUSCULAR HGB CONC 32.7 g/dl (32.0-37.0); MEAN CORPUSCULAR VOLUME 93.8 fl (82.0-101.0); MEAN PLATELET VOLUME 9.9 fl (7.4-10.4); MONOCYTE # 0.5 10^3/ul (0.3-0.9); MONOCYTES % 7.1 % (0.0-11.0); NEUTROPHIL # 3.6 10^3/ul (1.6-7.5); PLATELET COUNT 518 10^3/UL (140-415); RED BLOOD COUNT 3.36 10^6/ul (4.20-5.40); RED CELL DISTRIBUTION WIDTH 16.2 % (11.5-14.5)
[2018-01-23 09:39] LABS: WHITE BLOOD COUNT 6.3 10^3/ul (4.8-10.8)
[2018-01-23 10:13] LABS: ALANINE AMINOTRANSFERASE 15 IU/L (13-69); ALBUMIN/GLOBULIN RATIO 0.66; ALKALINE PHOSPHATASE 475 IU/L (42-121); ANION GAP 9 (8-16); ASPARTATE AMINO TRANSFERASE 30 IU/L (15-46); BILIRUBIN,INDIRECT 0.5 mg/dl (0-1.1); BILIRUBIN,TOTAL 0.5 mg/dl (0.2-1.3); BLOOD UREA NITROGEN 3 mg/dl (7-20); CALCIUM 8.6 mg/dl (8.4-10.2); CARBON DIOXIDE 25 mmol/L (21-31); CHLORIDE 107 mmol/L (97-110); CREATININE 0.52 mg/dl (0.44-1.00); GLUCOSE 95 mg/dl (70-220); MAGNESIUM 1.9 mg/dl (1.7-2.5); POTASSIUM 4.1 mmol/L (3.5-5.1); SODIUM 137 mmol/L (135-144); TOTAL PROTEIN 7.5 g/dl (6.1-8.1)
[2018-01-23] MEDS: LORAZEPAM 2 MG INJ IV (13:32)
[2018-01-24 05:32] LABS: ADD MAN DIFF? NO
[2018-01-24 05:40] LABS: BASOPHIL # 0.1 10^3/ul (0.0-0.1); BASOPHILS % 1.6 % (0.0-2.0); EOSINOPHILS # 0.2 10^3/ul (0.0-0.5); EOSINOPHILS % 2.7 % (0.0-7.0); HEMATOCRIT 29.3 % (37.0-47.0); HEMOGLOBIN 9.6 g/dl (12.0-16.0); LYMPHOCYTES # 1.8 10^3/ul (0.8-2.9); LYMPHOCYTES % 28.2 % (15.0-51.0); MEAN CORPUSCULAR HEMOGLOBIN 30.7 pg (29.0-33.0); MEAN CORPUSCULAR HGB CONC 32.8 g/dl (32.0-37.0); MEAN CORPUSCULAR VOLUME 93.6 fl (82.0-101.0); MEAN PLATELET VOLUME 9.6 fl (7.4-10.4); MONOCYTE # 0.5 10^3/ul (0.3-0.9); MONOCYTES % 8.3 % (0.0-11.0); NEUTROPHIL # 3.6 10^3/ul (1.6-7.5); NEUTROPHILS % 57.8 % (39.0-77.0); PLATELET COUNT 502 10^3/UL (140-415); RED BLOOD COUNT 3.13 10^6/ul (4.20-5.40); RED CELL DISTRIBUTION WIDTH 15.9 % (11.5-14.5)
[2018-01-24 05:40] LABS: WHITE BLOOD COUNT 6.3 10^3/ul (4.8-10.8)
[2018-01-24] MEDS: CEFOTAXIME 1 GM/50 ML (PMX) 50 ML IVPB ×3 (05:57→21:32)
[2018-01-24] MEDS: PANTOPRAZOLE 40 MG INJ IV (05:57)
[2018-01-24 06:20] LABS: ALANINE AMINOTRANSFERASE 15 IU/L (13-69); ALBUMIN 2.9 g/dl (3.3-4.9); ALBUMIN/GLOBULIN RATIO 0.65; ALKALINE PHOSPHATASE 459 IU/L (42-121); ANION GAP 9 (8-16); ASPARTATE AMINO TRANSFERASE 27 IU/L (15-46); BILIRUBIN,INDIRECT 0.3 mg/dl (0-1.1); BILIRUBIN,TOTAL 0.3 mg/dl (0.2-1.3); BLOOD UREA NITROGEN 4 mg/dl (7-20); CALCIUM 8.9 mg/dl (8.4-10.2); CARBON DIOXIDE 26 mmol/L (21-31); CHLORIDE 108 mmol/L (97-110); CREATININE 0.53 mg/dl (0.44-1.00); GLUCOSE 91 mg/dl (70-220); POTASSIUM 3.7 mmol/L (3.5-5.1); TOTAL PROTEIN 7.3 g/dl (6.1-8.1)
[2018-01-24 06:33] LABS: SODIUM 139 mmol/L (135-144)
[2018-01-24] MEDS: BALSAM PERU/CASTOR OIL 60 GM TUBE TOP (08:40)
[2018-01-24] MEDS: LORAZEPAM 2 MG INJ IV (08:40)
[2018-01-24] MEDS: OXYCODONE/ACETAMINOPHEN (5/325) TAB PO ×2 (14:35→20:44)
[2018-01-25] MEDS: CEFOTAXIME 1 GM/50 ML (PMX) 50 ML IVPB ×3 (05:15→22:38)
[2018-01-25] MEDS: PANTOPRAZOLE 40 MG INJ IV (06:00)
[2018-01-25] MEDS: BALSAM PERU/CASTOR OIL 60 GM TUBE TOP (08:20)
[2018-01-25] MEDS: LORAZEPAM 2 MG INJ IV (08:20)
[2018-01-25] MEDS: SOD CHLORIDE 0.9% 100 ML (12:39)
[2018-01-25] MEDS: IOHEXOL 300MG/ML 150 ML BTL (12:39)
[2018-01-25] MEDS: OXYCODONE/ACETAMINOPHEN (5/325) TAB PO (20:30)
[2018-01-26] MEDS: PANTOPRAZOLE 40 MG INJ IV (06:04)
[2018-01-26] MEDS: CEFOTAXIME 1 GM/50 ML (PMX) 50 ML IVPB ×4 (06:05→23:28)
[2018-01-26] MEDS: LORAZEPAM 2 MG INJ IV (09:22)
[2018-01-26] MEDS: BALSAM PERU/CASTOR OIL 60 GM TUBE TOP (09:23)
[2018-01-26] MEDS: POLYETHYLENE GLYCOL 17 GM PACKET PO (16:24)
[2018-01-26] MEDS: OXYCODONE/ACETAMINOPHEN (5/325) TAB PO (20:07)
[2018-01-27] MEDS: CEFOTAXIME 1 GM/50 ML (PMX) 50 ML IVPB (05:57)
[2018-01-27] MEDS: PANTOPRAZOLE 40 MG INJ IV (05:57)
[2018-01-27] MEDS: BALSAM PERU/CASTOR OIL 60 GM TUBE TOP (08:44)
[2018-01-27] MEDS: POLYETHYLENE GLYCOL 17 GM PACKET PO (08:44)
[2018-01-27] MEDS: LORAZEPAM 2 MG INJ IV ×2 (08:48→18:57)
[2018-01-27] MEDS: CLINDAMYCIN 150 MG CAP PO ×2 (13:31→21:07)
[2018-01-28] MEDS: PANTOPRAZOLE 40 MG INJ IV (05:30)
[2018-01-28] MEDS: CLINDAMYCIN 150 MG CAP PO ×4 (05:30→21:45)
[2018-01-28] MEDS: BALSAM PERU/CASTOR OIL 60 GM TUBE TOP (09:53)
[2018-01-28] MEDS: POLYETHYLENE GLYCOL 17 GM PACKET PO (09:54)
[2018-01-28] MEDS: LORAZEPAM 2 MG INJ IV ×2 (09:58→20:27)
[2018-01-29] MEDS: PANTOPRAZOLE 40 MG INJ IV (05:50)
[2018-01-29] MEDS: CLINDAMYCIN 150 MG CAP PO (05:50)
[2018-01-29 05:58] LABS: ADD MAN DIFF? NO
[2018-01-29 06:05] LABS: BASOPHIL # 0.2 10^3/ul (0.0-0.1); BASOPHILS % 2.8 % (0.0-2.0); EOSINOPHILS # 0.3 10^3/ul (0.0-0.5); EOSINOPHILS % 3.5 % (0.0-7.0); HEMOGLOBIN 10.6 g/dl (12.0-16.0); LYMPHOCYTES # 1.8 10^3/ul (0.8-2.9); LYMPHOCYTES % 24.9 % (15.0-51.0); MEAN CORPUSCULAR HGB CONC 32.1 g/dl (32.0-37.0); MEAN CORPUSCULAR VOLUME 96.5 fl (82.0-101.0); MONOCYTE # 0.5 10^3/ul (0.3-0.9); MONOCYTES % 7.5 % (0.0-11.0); NEUTROPHIL # 4.3 10^3/ul (1.6-7.5); NEUTROPHILS % 60.5 % (39.0-77.0); PLATELET COUNT 419 10^3/UL (140-415); RED BLOOD COUNT 3.42 10^6/ul (4.20-5.40); RED CELL DISTRIBUTION WIDTH 15.9 % (11.5-14.5)
[2018-01-29 06:05] LABS: WHITE BLOOD COUNT 7.1 10^3/ul (4.8-10.8)
[2018-01-29 07:11] LABS: ANION GAP 12 (8-16); BLOOD UREA NITROGEN 8 mg/dl (7-20); CALCIUM 9.2 mg/dl (8.4-10.2); CARBON DIOXIDE 26 mmol/L (21-31); CHLORIDE 107 mmol/L (97-110); CREATININE 0.63 mg/dl (0.44-1.00); GLUCOSE 89 mg/dl (70-220); MAGNESIUM 1.9 mg/dl (1.7-2.5); POTASSIUM 3.9 mmol/L (3.5-5.1); SODIUM 141 mmol/L (135-144)
[2018-01-29] MEDS: BALSAM PERU/CASTOR OIL 60 GM TUBE TOP (09:00)
[2018-01-29] MEDS: LORAZEPAM 2 MG INJ IV (10:21)
[2018-01-29] MEDS: POLYETHYLENE GLYCOL 17 GM PACKET PO (10:22)
== END 2018-01-29 12:18 | disposition home or self-care (01) | DRG 871 ==
LOC: MS4 01-20 15:03 → MS3 01-23 12:01 → MS1 01-26 08:20 → E/R 05:15 → ICU 08:19
PROC: 0F9430Z Drainage of Gallbladder with Drainage Device, Percutaneous Approach (ICD-10-PCS; principal; 2018-01-16)
PROC: 30233N1 Transfusion of Nonautologous Red Blood Cells into Peripheral Vein, Percutaneous Approach (ICD-10-PCS; 2018-01-19)
DX: A40.8 Other streptococcal sepsis (principal); R65.21 Severe sepsis with septic shock; K65.9 Peritonitis, unspecified; E87.2 Acidosis; N17.9 Acute kidney failure, unspecified; N39.0 Urinary tract infection, site not specified; C23 Malignant neoplasm of gallbladder; K81.0 Acute cholecystitis; C78.89 Secondary malignant neoplasm of other digestive organs; T85.590A Other mechanical complication of bile duct prosthesis, initial encounter; B37.49 Other urogenital candidiasis; E80.6 Other disorders of bilirubin metabolism; D72.825 Bandemia; E87.6 Hypokalemia; Z79.899 Other long term (current) drug therapy; D64.9 Anemia, unspecified
CPT/HCPCS: 36415; 36430; 36589; 71045; 71275; 74177; 75635; 75989; 76937; 77012; 80048; 80053; 80076; 80202; 81001; 83036; 83605; 83690; 83735; 84100; 84484; 84703; 85025; 85610; 85730; 86301; 86850; 86900; 86901; 86920; 87040; 87070; 87075; 87086; 88104; 93005; 93306; 96361; 96365; 96375; 99291-25

== ENCOUNTER 2018-02-18 12:59 | Inpatient (IN) | payer BC ==
[2018-02-18 15:58] LABS: ADD MAN DIFF? NO
[2018-02-18] MEDS: DIPHENHYDRAMINE 50 MG INJ IV ×2 (16:06→20:36)
[2018-02-18] MEDS: SOD CHLORIDE 0.9% 1,000 ML IV ×2 (16:06→23:56)
[2018-02-18 16:14] LABS: BASOPHIL # 0.1 10^3/ul (0.0-0.1); BASOPHILS % 1.3 % (0.0-2.0); EOSINOPHILS # 0.2 10^3/ul (0.0-0.5); EOSINOPHILS % 2.2 % (0.0-7.0); HEMOGLOBIN 10.1 g/dl (12.0-16.0); LYMPHOCYTES # 1.8 10^3/ul (0.8-2.9); LYMPHOCYTES % 19.3 % (15.0-51.0); MEAN CORPUSCULAR HEMOGLOBIN 31.2 pg (29.0-33.0); MEAN CORPUSCULAR HGB CONC 33.7 g/dl (32.0-37.0); MEAN CORPUSCULAR VOLUME 92.6 fl (82.0-101.0); MEAN PLATELET VOLUME 11.3 fl (7.4-10.4); MONOCYTE # 0.6 10^3/ul (0.3-0.9); MONOCYTES % 6.2 % (0.0-11.0); NEUTROPHIL # 6.7 10^3/ul (1.6-7.5); NEUTROPHILS % 69.9 % (39.0-77.0); PLATELET COUNT 358 10^3/UL (140-415); RED BLOOD COUNT 3.24 10^6/ul (4.20-5.40); RED CELL DISTRIBUTION WIDTH 19.9 % (11.5-14.5)
[2018-02-18 16:14] LABS: WHITE BLOOD COUNT 9.5 10^3/ul (4.8-10.8)
[2018-02-18 16:25] LABS: INR 1.08; PROTIME 14.1 Sec (11.9-14.9); PT RATIO 1.1
[2018-02-18 16:26] LABS: ALANINE AMINOTRANSFERASE 77 IU/L (13-69); ALBUMIN 3.8 g/dl (3.3-4.9); ALBUMIN/GLOBULIN RATIO 0.74; ALKALINE PHOSPHATASE 1249 IU/L (42-121); ANION GAP 16 (8-16); ASPARTATE AMINO TRANSFERASE 108 IU/L (15-46); BILIRUBIN,INDIRECT 2.5 mg/dl (0-1.1); BILIRUBIN,TOTAL 16.2 mg/dl (0.2-1.3); BLOOD UREA NITROGEN 12 mg/dl (7-20); CALCIUM 9.2 mg/dl (8.4-10.2); CARBON DIOXIDE 19 mmol/L (21-31); CHLORIDE 104 mmol/L (97-110); CREATININE 0.52 mg/dl (0.44-1.00); GLUCOSE 144 mg/dl (70-220); LACTATE DEHYDROGENASE 510 IU/L (313-618); LIPASE 77 U/L (23-300); PARTIAL THROMBOPLASTIN TIME 39.4 Sec (25.0-35.0); SODIUM 136 mmol/L (135-144); TOTAL PROTEIN 8.9 g/dl (6.1-8.1)
[2018-02-18 16:27] LABS: ADD UMIC YES; UR ASCORBIC ACID 20 mg/dL (NEGATIVE); UR BACTERIA FEW /HPF (NONE SEEN); UR BILIRUBIN (Dip) 2+ mg/dL (NEGATIVE); UR BLOOD (Dip) 1+ mg/dL (NEGATIVE); UR CLARITY SLIGHTLY CLOUDY (CLEAR); UR COLOR AMBER (YELLOW); UR GLUCOSE (Dip) NEGATIVE (NEGATIVE); UR KETONES (Dip) NEGATIVE (NEGATIVE); UR LEUKOCYTE ESTERASE (Dip) NEGATIVE Leu/ul (NEGATIVE); UR MUCUS MODERATE /HPF (NONE SEEN); UR NITRITE (Dip) NEGATIVE (NEGATIVE); UR RBC 0 /HPF (0-5); UR SPECIFIC GRAVITY (Dip) 1.019 (1.003-1.030); UR SQUAMOUS EPITHELIAL CELL FEW /HPF (FEW); UR TOTAL PROTEIN (Dip) 1+ mg/dl (NEGATIVE); UR UROBILINOGEN (Dip) 2+ mg/dL (NEGATIVE); UR WBC 6 /HPF (0-5)
[2018-02-18] MEDS: LORAZEPAM 2 MG INJ IV (16:51)
[2018-02-18] MEDS: SOD CHLORIDE 0.9% 100 ML (19:14)
[2018-02-18] MEDS: IOHEXOL 300MG/ML 150 ML BTL (19:14)
[2018-02-18] MEDS ORDERED: ONDANSETRON 4 MG INJ IV ×2 (20:00→21:00)
[2018-02-18] MEDS ORDERED: ACETAMINOPHEN 325 MG TAB PO ×2 (20:00→21:00)
[2018-02-18] MEDS ORDERED: morphine 2 MG INJ IV (21:00)
[2018-02-18] MEDS ORDERED: DOCUSATE SODIUM 100 MG CAP PO (21:00)
[2018-02-18] MEDS ORDERED: NACL 0.9% 3 ML SYG IV (21:00)
[2018-02-18] MEDS ORDERED: BISACODYL (EC) 5 MG TAB PO (21:00)
[2018-02-18] MEDS ORDERED: HYDROCODONE/APAP (10/325) TAB PO (22:00)
[2018-02-18] MEDS: LORAZEPAM 1 MG TAB PO (23:56)
[2018-02-19 05:06] LABS: WHITE BLOOD COUNT 7.6 10^3/ul (4.8-10.8)
[2018-02-19 05:06] LABS: ADD MAN DIFF? NO; BASOPHIL # 0.1 10^3/ul (0.0-0.1); BASOPHILS % 0.9 % (0.0-2.0); EOSINOPHILS # 0.2 10^3/ul (0.0-0.5); EOSINOPHILS % 2.2 % (0.0-7.0); HEMOGLOBIN 9.2 g/dl (12.0-16.0); LYMPHOCYTES # 1.3 10^3/ul (0.8-2.9); LYMPHOCYTES % 16.6 % (15.0-51.0); MEAN CORPUSCULAR HEMOGLOBIN 31.5 pg (29.0-33.0); MEAN CORPUSCULAR HGB CONC 34.1 g/dl (32.0-37.0); MEAN CORPUSCULAR VOLUME 92.5 fl (82.0-101.0); MEAN PLATELET VOLUME 11.1 fl (7.4-10.4); MONOCYTE # 0.5 10^3/ul (0.3-0.9); MONOCYTES % 5.9 % (0.0-11.0); NEUTROPHIL # 5.6 10^3/ul (1.6-7.5); NEUTROPHILS % 73.6 % (39.0-77.0); PLATELET COUNT 300 10^3/UL (140-415); RED BLOOD COUNT 2.92 10^6/ul (4.20-5.40); RED CELL DISTRIBUTION WIDTH 20.1 % (11.5-14.5)
[2018-02-19] MEDS: PANTOPRAZOLE (EC) 40 MG TAB PO (05:06)
[2018-02-19] MEDS: DIPHENHYDRAMINE 50 MG INJ IV (05:30)
[2018-02-19 05:48] LABS: ALANINE AMINOTRANSFERASE 68 IU/L (13-69); ALBUMIN 3.3 g/dl (3.3-4.9); ALBUMIN/GLOBULIN RATIO 0.73; ALKALINE PHOSPHATASE 1066 IU/L (42-121); ANION GAP 12 (8-16); ASPARTATE AMINO TRANSFERASE 104 IU/L (15-46); BILIRUBIN,INDIRECT 2.6 mg/dl (0-1.1); BILIRUBIN,TOTAL 15.2 mg/dl (0.2-1.3); BLOOD UREA NITROGEN 7 mg/dl (7-20); CALCIUM 8.8 mg/dl (8.4-10.2); CARBON DIOXIDE 24 mmol/L (21-31); CHLORIDE 106 mmol/L (97-110); CHOL/HDL RATIO 11.6 RATIO; CHOLESTEROL 257 mg/dl (100-200); CREATININE 0.52 mg/dl (0.44-1.00); GLUCOSE 100 mg/dl (70-220); HDL CHOLESTEROL 22 mg/dl (34-88); LDL CHOLESTEROL,CALCULATED 196 mg/dl; MAGNESIUM 1.9 mg/dl (1.7-2.5); SODIUM 139 mmol/L (135-144); TOTAL PROTEIN 7.8 g/dl (6.1-8.1); TRIGLYCERIDES 196 mg/dl (0-149)
[2018-02-19 06:00] LABS: POTASSIUM 2.9 mmol/L (3.5-5.1)
[2018-02-19] MEDS: POTASSIUM CHLORIDE (SR) 20 MEQ TAB PO (06:29)
[2018-02-19] MEDS: POTASSIUM CHLORIDE 100 ML IVPB ×2 (08:06→10:06)
[2018-02-19] MEDS: POLYETHYLENE GLYCOL 17 GM PACKET PO (09:00)
[2018-02-19] MEDS: SUCRALFATE (100 MG/ML) 10ML CUP PO (09:00)
[2018-02-19] MEDS: MAGNESIUM SULFATE 1 GM/D5W 100 ML IVPB (10:07)
[2018-02-19 11:34] LABS: HEMOGLOBIN A1C 4.3 % (0-5.9)
[2018-02-19] MEDS: SOD CHLORIDE 0.9% 1,000 ML IV (12:47)
[2018-02-19] MEDS: LORAZEPAM 1 MG TAB PO (12:48)
[2018-02-19] MEDS ORDERED: morphine LIQ (10 MG/5 ML) CUP PO (17:30)
[2018-02-24 14:06] LABS: HAPTOGLOBIN 174 mg/dL (43-212)
== END 2018-02-19 18:00 | disposition short-term general hospital (02) | DRG 436 ==
LOC: E/R 12:59 → MS1 19:40
DX: C23 Malignant neoplasm of gallbladder (principal); C78.89 Secondary malignant neoplasm of other digestive organs; R17 Unspecified jaundice; N39.0 Urinary tract infection, site not specified; Z93.4 Other artificial openings of gastrointestinal tract status; D63.8 Anemia in other chronic diseases classified elsewhere; F41.9 Anxiety disorder, unspecified; E78.5 Hyperlipidemia, unspecified; E87.6 Hypokalemia; Z90.49 Acquired absence of other specified parts of digestive tract
CPT/HCPCS: 36415; 74177; 80053; 80061; 81001; 83010; 83036; 83615; 83690; 83735; 84443; 84703; 85025; 85610; 85730; 93005; 96374; 96375; 99285-25

== ENCOUNTER 2018-03-21 20:50 | Inpatient (IN) | payer BC ==
[2018-03-21] MEDS: SODIUM CHLORIDE 0.9% 1L BAG IV* (21:49)
[2018-03-21] MEDS: CEFEPIME 2GM/50 ML (PMX) 50 ML IVPB (21:51)
[2018-03-21 21:52] LABS: WHITE BLOOD COUNT 17.7 10^3/ul (4.8-10.8)
[2018-03-21 21:52] LABS: ABNORMAL IP MESSAGE 1; HEMATOCRIT 33.6 % (37.0-47.0); HEMOGLOBIN 11.8 g/dl (12.0-16.0); MEAN CORPUSCULAR HEMOGLOBIN 31.5 pg (29.0-33.0); MEAN CORPUSCULAR HGB CONC 35.1 g/dl (32.0-37.0); MEAN CORPUSCULAR VOLUME 89.6 fl (82.0-101.0); MEAN PLATELET VOLUME 12.2 fl (7.4-10.4); PLATELET COUNT 110 10^3/UL (140-415); RED BLOOD COUNT 3.75 10^6/ul (4.20-5.40); RED CELL DISTRIBUTION WIDTH 13.6 % (11.5-14.5)
[2018-03-21 21:53] LABS: ADD MAN DIFF? YES; POSITIVE DIFF @See below
[2018-03-21] MEDS: ONDANSETRON 4 MG INJ IV (21:53)
[2018-03-21] MEDS: morphine 4 MG/ML VIAL IV (21:54)
[2018-03-21 22:10] LABS: ALANINE AMINOTRANSFERASE 44 IU/L (13-69); ALBUMIN 2.8 g/dl (3.3-4.9); ALKALINE PHOSPHATASE 202 IU/L (42-121); ANION GAP 19 (8-16); ASPARTATE AMINO TRANSFERASE 94 IU/L (15-46); BILIRUBIN,INDIRECT 1.6 mg/dl (0-1.1); BILIRUBIN,TOTAL 3.8 mg/dl (0.2-1.3); BLOOD UREA NITROGEN 34 mg/dl (7-20); CALCIUM 8.3 mg/dl (8.4-10.2); CARBON DIOXIDE 18 mmol/L (21-31); CHLORIDE 99 mmol/L (97-110); CREATININE 1.65 mg/dl (0.44-1.00); GLUCOSE 103 mg/dl (70-220); LIPASE 194 U/L (23-300); SODIUM 133 mmol/L (135-144); TOTAL PROTEIN 6.5 g/dl (6.1-8.1)
[2018-03-21 22:20] LABS: POTASSIUM 2.8 mmol/L (3.5-5.1)
[2018-03-21 22:22] LABS: LACTIC ACID 5.8 mmol/L (0.5-2.0)
[2018-03-21 22:25] LABS: BAND NEUTROPHILS % (M) 6 % (0-4); LYMPHOCYTES #M 0.8 10^3/ul (0.8-2.9); LYMPHOCYTES % (M) 5 % (15-51); PLATELET ESTIMATE DECREASED; POIKILOCYTOSIS 1+ (0-0); SEG NEUT #M 15.9 10^3/ul (1.6-7.5); SEGMENTED NEUTROPHILS (M) % 89 % (39-77); SMUDGE%M 3 % (0-0)
[2018-03-21 22:26] LABS: TROPONIN-I < 0.012 ng/ml (0.000-0.120)
[2018-03-21] MEDS: SOD CHLORIDE 0.9% 500 ML IV (23:11)
[2018-03-21 23:15] LABS: URINE BLOOD (Dip) POC Trace-intact (NEGATIVE); URINE GLUCOSE (Dip) POC Negative (NEGATIVE); URINE KETONES (Dip) POC Negative (NEGATIVE); URINE LEUKOCYTE EST (Dip) POC Negative (NEGATIVE); URINE NITRITE (Dip) POC Negative (NEGATIVE); URINE TOTAL PROTEIN POC 2+ (NEGATIVE)
[2018-03-21 23:15] LABS: URINE PH (Dip) POC 5.5 (5.0-8.5)
[2018-03-21 23:34] LABS: ADD UMIC YES; UR AMORPHOUS CRYSTAL FEW /HPF (NONE SEEN); UR ASCORBIC ACID NEGATIVE (NEGATIVE); UR BACTERIA FEW /HPF (NONE SEEN); UR BILIRUBIN (Dip) 1+ mg/dL (NEGATIVE); UR BLOOD (Dip) 1+ mg/dL (NEGATIVE); UR CLARITY CLOUDY (CLEAR); UR COLOR AMBER (YELLOW); UR GLUCOSE (Dip) NEGATIVE (NEGATIVE); UR KETONES (Dip) NEGATIVE (NEGATIVE); UR LEUKOCYTE ESTERASE (Dip) NEGATIVE Leu/ul (NEGATIVE); UR MUCUS FEW /HPF (NONE SEEN); UR NITRITE (Dip) NEGATIVE (NEGATIVE); UR RBC 2 /HPF (0-5); UR SPECIFIC GRAVITY (Dip) 1.016 (1.003-1.030); UR SQUAMOUS EPITHELIAL CELL FEW /HPF (FEW); UR TOTAL PROTEIN (Dip) 1+ mg/dl (NEGATIVE); UR UROBILINOGEN (Dip) 1+ mg/dL (NEGATIVE); UR WBC 11 /HPF (0-5)
[2018-03-22] MEDS: POTASSIUM CHLORIDE (SR) 20 MEQ TAB PO (00:03)
[2018-03-22 00:04] LABS: LACTIC ACID 3.7 mmol/L (0.5-2.0)
[2018-03-22] MEDS: VANCOMYCIN 1 GM (PMX) 250 ML IVPB (00:04)
[2018-03-22] MEDS: IBUPROFEN 200 MG TAB PO (00:04)
[2018-03-22] MEDS: morphine 10 MG INJ IV (00:24)
[2018-03-22] MEDS: NORepinephrine 8MG/250 ML (PMX 250 ML IV (00:41)
[2018-03-22] MEDS ORDERED: ALBUTEROL/IPRATROPIUM (NEB) 3 ML AMP NEB (01:00)
[2018-03-22] MEDS: SOD CHLORIDE 0.9% 1,000 ML IV ×3 (01:13→14:00)
[2018-03-22 02:24] LABS: LACTIC ACID 1.7 mmol/L (0.5-2.0)
[2018-03-22] MEDS ORDERED: VANCOMYCIN IV PER PHARMACY XX (03:00)
[2018-03-22] MEDS: PANTOPRAZOLE 40 MG INJ IV (05:37)
[2018-03-22] MEDS: PIPER-TAZO 3.375 GM IV (PMX) 100 ML IVPB ×3 (05:37→18:32)
[2018-03-22] MEDS: morphine 2 MG INJ IV ×2 (05:38→23:39)
[2018-03-22 05:54] LABS: ABNORMAL IP MESSAGE 1; HEMATOCRIT 28.2 % (37.0-47.0); HEMOGLOBIN 9.7 g/dl (12.0-16.0); MEAN CORPUSCULAR HEMOGLOBIN 31.5 pg (29.0-33.0); MEAN CORPUSCULAR HGB CONC 34.4 g/dl (32.0-37.0); MEAN CORPUSCULAR VOLUME 91.6 fl (82.0-101.0); MEAN PLATELET VOLUME 12.5 fl (7.4-10.4); PLATELET COUNT 71 10^3/UL (140-415); RED BLOOD COUNT 3.08 10^6/ul (4.20-5.40)
[2018-03-22 05:54] LABS: WHITE BLOOD COUNT 26.8 10^3/ul (4.8-10.8)
[2018-03-22 06:07] LABS: POSITIVE DIFF @See below
[2018-03-22 06:08] LABS: ADD MAN DIFF? YES
[2018-03-22 06:11] LABS: LACTIC ACID 1.4 mmol/L (0.5-2.0)
[2018-03-22 06:17] LABS: ALANINE AMINOTRANSFERASE 42 IU/L (13-69); ALBUMIN 2.5 g/dl (3.3-4.9); ALBUMIN/GLOBULIN RATIO 0.67; ALKALINE PHOSPHATASE 120 IU/L (42-121); ANION GAP 12 (8-16); ASPARTATE AMINO TRANSFERASE 62 IU/L (15-46); BILIRUBIN,INDIRECT 1.3 mg/dl (0-1.1); BILIRUBIN,TOTAL 3.4 mg/dl (0.2-1.3); BLOOD UREA NITROGEN 33 mg/dl (7-20); CALCIUM 7.8 mg/dl (8.4-10.2); CARBON DIOXIDE 22 mmol/L (21-31); CHLORIDE 104 mmol/L (97-110); CREATININE 1.31 mg/dl (0.44-1.00); GLUCOSE 120 mg/dl (70-220); POTASSIUM 3.3 mmol/L (3.5-5.1); SODIUM 135 mmol/L (135-144); TOTAL PROTEIN 6.2 g/dl (6.1-8.1)
[2018-03-22] MEDS ORDERED: NORepinephrine 8MG/250 ML (PMX 250 ML IV (06:30)
[2018-03-22 07:57] LABS: ANISOCYTOSIS 1+ (0-0); BAND NEUTROPHILS #M 5.8 10^3/ul (0.0-0.6); BAND NEUTROPHILS % (M) 22 % (0-4); BURR CELLS 1+ (0-0); LYMPHOCYTES #M 1.6 10^3/ul (0.8-2.9); LYMPHOCYTES % (M) 6 % (15-51); MONOCYTE #M 0.2 10^3/ul (0.3-0.9); MONOCYTES % (M) 1 % (0-11); PLATELET ESTIMATE DECREASED; POIKILOCYTOSIS 2+ (0-0); SEG NEUT #M 20.6 10^3/ul (1.6-7.5); SEGMENTED NEUTROPHILS (M) % 71 % (39-77); SMUDGE%M 57 % (0-0); SPHEROCYTES 1+ (0-0)
[2018-03-22 08:04] LABS: MAGNESIUM 1.6 mg/dl (1.7-2.5)
[2018-03-22] MEDS: POTASSIUM CHLORIDE 100 ML IVPB ×2 (08:34→10:00)
[2018-03-22 09:46] LABS: LACTIC ACID 1.4 mmol/L (0.5-2.0)
[2018-03-22] MEDS: MAGNESIUM SULFATE 3 GM in DEXTROSE 5% 100 ML IVPB (11:52)
[2018-03-22 12:00] LABS: MAGNESIUM 1.9 mg/dl (1.7-2.5)
[2018-03-22 12:01] LABS: ANION GAP 10 (8-16); BLOOD UREA NITROGEN 32 mg/dl (7-20); CARBON DIOXIDE 23 mmol/L (21-31); CHLORIDE 110 mmol/L (97-110); CREATININE 1.06 mg/dl (0.44-1.00); GLUCOSE 92 mg/dl (70-220); POTASSIUM 3.7 mmol/L (3.5-5.1); SODIUM 139 mmol/L (135-144)
[2018-03-22 14:13] LABS: LACTIC ACID 1.2 mmol/L (0.5-2.0)
[2018-03-22 14:17] LABS: PROTIME 36.2 Sec (11.9-14.9); PT RATIO 2.8
[2018-03-22] MEDS ORDERED: CASPOFUNGIN 50 MG in SOD CHLORIDE 0.9% 250 ML IVPB (15:00)
[2018-03-22] MEDS: CASPOFUNGIN 70 MG in SOD CHLORIDE 0.9% 250 ML IVPB (16:30)
[2018-03-22] MEDS: PHYTONADIONE 10 MG in DEXTROSE 5% 50 ML IVPB (16:31)
[2018-03-22] MEDS: VANCOMYCIN 1 GM 250 ML IVPB (20:59)
[2018-03-23] MEDS: PIPER-TAZO 3.375 GM IV (PMX) 100 ML IVPB (01:15)
[2018-03-23] MEDS: SOD CHLORIDE 0.9% 1,000 ML IV ×2 (03:21→18:35)
[2018-03-23 05:05] LABS: INR 1.16; PT RATIO 1.2
[2018-03-23 05:10] LABS: ALANINE AMINOTRANSFERASE 31 IU/L (13-69); ALBUMIN 2.1 g/dl (3.3-4.9); ALKALINE PHOSPHATASE 94 IU/L (42-121); ANION GAP 10 (8-16); ASPARTATE AMINO TRANSFERASE 32 IU/L (15-46); BILIRUBIN,INDIRECT 1.2 mg/dl (0-1.1); BILIRUBIN,TOTAL 3.2 mg/dl (0.2-1.3); BLOOD UREA NITROGEN 19 mg/dl (7-20); CALCIUM 8.1 mg/dl (8.4-10.2); CARBON DIOXIDE 22 mmol/L (21-31); CHLORIDE 109 mmol/L (97-110); CREATININE 0.77 mg/dl (0.44-1.00); GLUCOSE 110 mg/dl (70-220); SODIUM 138 mmol/L (135-144); TOTAL PROTEIN 5.6 g/dl (6.1-8.1)
[2018-03-23 05:15] LABS: POTASSIUM 2.9 mmol/L (3.5-5.1)
[2018-03-23] MEDS: PANTOPRAZOLE 40 MG INJ IV (05:37)
[2018-03-23] MEDS: MEROPENEM 1 GM/50ML(PMX) 50 ML IVPB ×3 (05:37→21:53)
[2018-03-23] MEDS: POTASSIUM CHLORIDE 100 ML IVPB ×3 (06:30→10:28)
[2018-03-23 07:39] LABS: MAGNESIUM 2.2 mg/dl (1.7-2.5)
[2018-03-23] MEDS: morphine 2 MG INJ IV ×4 (08:22→22:29)
[2018-03-23 12:11] LABS: WHITE BLOOD COUNT 18.7 10^3/ul (4.8-10.8)
[2018-03-23 12:11] LABS: ABNORMAL IP MESSAGE 1; HEMOGLOBIN 9.7 g/dl (12.0-16.0); MEAN CORPUSCULAR HEMOGLOBIN 30.5 pg (29.0-33.0); MEAN CORPUSCULAR HGB CONC 33.4 g/dl (32.0-37.0); MEAN CORPUSCULAR VOLUME 91.2 fl (82.0-101.0); MEAN PLATELET VOLUME 13.1 fl (7.4-10.4); PLATELET COUNT 42 10^3/UL (140-415); POSITIVE DIFF @See below; RED BLOOD COUNT 3.18 10^6/ul (4.20-5.40); RED CELL DISTRIBUTION WIDTH 13.9 % (11.5-14.5)
[2018-03-23 12:13] LABS: ADD MAN DIFF? YES
[2018-03-23] MEDS: ACETAMINOPHEN 650MG/20.3ML CUP PO (12:58)
[2018-03-23] MEDS: LORAZEPAM 2 MG INJ IV (13:16)
[2018-03-23 13:24] LABS: ANISOCYTOSIS 1+ (0-0); BAND NEUTROPHILS #M 0.3 10^3/ul (0.0-0.6); BAND NEUTROPHILS % (M) 2 % (0-4); BURR CELLS 2+ (0-0); EOSINOPHILS % (M) 1 % (0-7); LYMPHOCYTES #M 1.8 10^3/ul (0.8-2.9); LYMPHOCYTES % (M) 10 % (15-51); MONOCYTE #M 0.3 10^3/ul (0.3-0.9); MONOCYTES % (M) 2 % (0-11); PLATELET ESTIMATE DECREASED; POIKILOCYTOSIS 2+ (0-0); POLYCHROMASIA 1+ (0-0); SEGMENTED NEUTROPHILS (M) % 85 % (39-77); SMUDGE%M 6 % (0-0)
[2018-03-23] MEDS: LIDOCAINE 1% (MPF) 5 ML VIAL (13:50)
[2018-03-23] MEDS: FENTAnyl 50 MCG/ML VIAL (13:50)
[2018-03-23] MEDS: MIDAZOLAM 1 MG/ML 2 ML INJ (14:50)
[2018-03-23] MEDS: CASPOFUNGIN 50 MG in SOD CHLORIDE 0.9% 250 ML IVPB (16:12)
[2018-03-23] MEDS: VANCOMYCIN 750 MG in SOD CHLORIDE 0.9% 150 ML IVPB (16:12)
[2018-03-24] MEDS: ACETAMINOPHEN 650MG/20.3ML CUP PO ×3 (00:23→23:22)
[2018-03-24] MEDS: morphine 2 MG INJ IV ×5 (04:33→14:02)
[2018-03-24] MEDS: SOD CHLORIDE 0.9% 1,000 ML IV ×3 (04:33→21:16)
[2018-03-24] MEDS: VANCOMYCIN 750 MG in SOD CHLORIDE 0.9% 150 ML IVPB ×2 (04:34→15:41)
[2018-03-24 05:14] LABS: ABNORMAL IP MESSAGE 1; HEMATOCRIT 27.3 % (37.0-47.0); MEAN CORPUSCULAR HEMOGLOBIN 30.4 pg (29.0-33.0); MEAN CORPUSCULAR VOLUME 92.2 fl (82.0-101.0); MEAN PLATELET VOLUME 12.2 fl (7.4-10.4); PLATELET COUNT 69 10^3/UL (140-415); RED BLOOD COUNT 2.96 10^6/ul (4.20-5.40); RED CELL DISTRIBUTION WIDTH 14.3 % (11.5-14.5)
[2018-03-24 05:14] LABS: WHITE BLOOD COUNT 18.1 10^3/ul (4.8-10.8)
[2018-03-24 05:23] LABS: ADD MAN DIFF? YES; POSITIVE DIFF @See below
[2018-03-24 05:38] LABS: ALANINE AMINOTRANSFERASE 27 IU/L (13-69); ALBUMIN 2.3 g/dl (3.3-4.9); ALBUMIN/GLOBULIN RATIO 0.67; ALKALINE PHOSPHATASE 105 IU/L (42-121); ANION GAP 8 (8-16); ASPARTATE AMINO TRANSFERASE 25 IU/L (15-46); BILIRUBIN,INDIRECT 1.5 mg/dl (0-1.1); BILIRUBIN,TOTAL 4.3 mg/dl (0.2-1.3); BLOOD UREA NITROGEN 11 mg/dl (7-20); CARBON DIOXIDE 22 mmol/L (21-31); CHLORIDE 111 mmol/L (97-110); CREATININE 0.64 mg/dl (0.44-1.00); GLUCOSE 112 mg/dl (70-220); POTASSIUM 3.2 mmol/L (3.5-5.1); SODIUM 138 mmol/L (135-144); TOTAL PROTEIN 5.7 g/dl (6.1-8.1)
[2018-03-24] MEDS: MEROPENEM 1 GM/50ML(PMX) 50 ML IVPB ×3 (06:33→21:14)
[2018-03-24] MEDS: PANTOPRAZOLE 40 MG INJ IV (06:33)
[2018-03-24 07:57] LABS: ANISOCYTOSIS 1+ (0-0); BAND NEUTROPHILS #M 0.5 10^3/ul (0.0-0.6); BAND NEUTROPHILS % (M) 3 % (0-4); BURR CELLS 1+ (0-0); EOSINOPHILS % (M) 3 % (0-7); LYMPHOCYTES #M 0.9 10^3/ul (0.8-2.9); LYMPHOCYTES % (M) 5 % (15-51); MONOCYTE #M 0.5 10^3/ul (0.3-0.9); MONOCYTES % (M) 3 % (0-11); PLASMA CELLS #M 0.3 10^3/ul (0.0-0.0); PLASMAC%(M) 2 % (0); PLATELET ESTIMATE DECREASED; POIKILOCYTOSIS 1+ (0-0); POLYCHROMASIA 1+ (0-0); SEG NEUT #M 15.3 10^3/ul (1.6-7.5); SEGMENTED NEUTROPHILS (M) % 84 % (39-77); SMUDGE%M 11 % (0-0)
[2018-03-24] MEDS: POTASSIUM CHLORIDE (SR) 20 MEQ TAB PO ×2 (09:47→14:01)
[2018-03-24] MEDS: CASPOFUNGIN 50 MG in SOD CHLORIDE 0.9% 250 ML IVPB (15:41)
[2018-03-25] MEDS: morphine 2 MG INJ IV ×3 (00:41→19:40)
[2018-03-25 03:03] LABS: ABNORMAL IP MESSAGE 1; HEMATOCRIT 25.3 % (37.0-47.0); HEMOGLOBIN 8.5 g/dl (12.0-16.0); MEAN CORPUSCULAR HEMOGLOBIN 31.1 pg (29.0-33.0); MEAN CORPUSCULAR HGB CONC 33.6 g/dl (32.0-37.0); MEAN CORPUSCULAR VOLUME 92.7 fl (82.0-101.0); MEAN PLATELET VOLUME 11.7 fl (7.4-10.4); PLATELET COUNT 96 10^3/UL (140-415); RED BLOOD COUNT 2.73 10^6/ul (4.20-5.40); RED CELL DISTRIBUTION WIDTH 14.1 % (11.5-14.5)
[2018-03-25 03:03] LABS: WHITE BLOOD COUNT 13.1 10^3/ul (4.8-10.8)
[2018-03-25 03:27] LABS: ADD MAN DIFF? YES; POSITIVE DIFF @See below
[2018-03-25 03:30] LABS: ALANINE AMINOTRANSFERASE 21 IU/L (13-69); ALBUMIN 2.2 g/dl (3.3-4.9); ALBUMIN/GLOBULIN RATIO 0.61; ALKALINE PHOSPHATASE 134 IU/L (42-121); ANION GAP 7 (8-16); ASPARTATE AMINO TRANSFERASE 31 IU/L (15-46); BILIRUBIN,INDIRECT 1.6 mg/dl (0-1.1); BLOOD UREA NITROGEN 7 mg/dl (7-20); CARBON DIOXIDE 22 mmol/L (21-31); CHLORIDE 110 mmol/L (97-110); CREATININE 0.64 mg/dl (0.44-1.00); GLUCOSE 98 mg/dl (70-220); POTASSIUM 3.5 mmol/L (3.5-5.1); SODIUM 135 mmol/L (135-144); TOTAL PROTEIN 5.8 g/dl (6.1-8.1)
[2018-03-25 03:33] LABS: VANCOMYCIN,TROUGH 7.7 ug/ml (10.0-20.0)
[2018-03-25] MEDS: VANCOMYCIN 750 MG in SOD CHLORIDE 0.9% 150 ML IVPB (04:34)
[2018-03-25 05:20] LABS: ANISOCYTOSIS 1+ (0-0); BAND NEUTROPHILS #M 1.3 10^3/ul (0.0-0.6); BAND NEUTROPHILS % (M) 10 % (0-4); EOSINOPHILS % (M) 1 % (0-7); LYMPHOCYTES #M 1.8 10^3/ul (0.8-2.9); LYMPHOCYTES % (M) 14 % (15-51); MONOCYTE #M 0.6 10^3/ul (0.3-0.9); MONOCYTES % (M) 5 % (0-11); PLASMA CELLS #M 0.1 10^3/ul (0.0-0.0); PLASMAC%(M) 1 % (0); PLATELET ESTIMATE DECREASED; POIKILOCYTOSIS 2+ (0-0); POLYCHROMASIA 3+ (0-0); SEG NEUT #M 9.2 10^3/ul (1.6-7.5); SEGMENTED NEUTROPHILS (M) % 69 % (39-77); SMUDGE%M 5 % (0-0)
[2018-03-25] MEDS: MEROPENEM 1 GM/50ML(PMX) 50 ML IVPB (05:38)
[2018-03-25] MEDS: PANTOPRAZOLE 40 MG INJ IV (05:38)
[2018-03-25] MEDS: SOD CHLORIDE 0.9% 1,000 ML IV ×2 (08:42→13:10)
[2018-03-25] MEDS: LORAZEPAM 2 MG INJ IV ×2 (09:07→15:23)
[2018-03-25] MEDS: VANCOMYCIN 1 GM 250 ML IVPB (12:58)
[2018-03-25] MEDS: ACETAMINOPHEN 650MG/20.3ML CUP PO (21:11)
[2018-03-25] MEDS: CEFEPIME 1GM/50 ML (PMX) 50 ML IVPB (21:11)
[2018-03-26] MEDS: LORAZEPAM 0.5 MG TAB PO ×3 (00:34→20:43)
[2018-03-26] MEDS: VANCOMYCIN 1.25 GM in SOD CHLORIDE 0.9% 250 ML IVPB ×2 (00:34→12:59)
[2018-03-26] MEDS: morphine 2 MG INJ IV ×5 (02:22→22:41)
[2018-03-26] MEDS: SOD CHLORIDE 0.9% 1,000 ML IV ×2 (04:03→18:12)
[2018-03-26] MEDS: PANTOPRAZOLE 40 MG INJ IV (06:32)
[2018-03-26 06:52] LABS: ADD MAN DIFF? NO
[2018-03-26 06:59] LABS: BASOPHILS % 0.4 % (0.0-2.0); EOSINOPHILS # 0.2 10^3/ul (0.0-0.5); EOSINOPHILS % 2.5 % (0.0-7.0); HEMATOCRIT 24.6 % (37.0-47.0); HEMOGLOBIN 8.3 g/dl (12.0-16.0); LYMPHOCYTES # 1.7 10^3/ul (0.8-2.9); MEAN CORPUSCULAR HEMOGLOBIN 30.6 pg (29.0-33.0); MEAN CORPUSCULAR HGB CONC 33.7 g/dl (32.0-37.0); MEAN CORPUSCULAR VOLUME 90.8 fl (82.0-101.0); MEAN PLATELET VOLUME 11.3 fl (7.4-10.4); MONOCYTE # 0.4 10^3/ul (0.3-0.9); MONOCYTES % 5.1 % (0.0-11.0); NEUTROPHIL # 5.6 10^3/ul (1.6-7.5); NEUTROPHILS % 69.6 % (39.0-77.0); PLATELET COUNT 152 10^3/UL (140-415); RED BLOOD COUNT 2.71 10^6/ul (4.20-5.40)
[2018-03-26 06:59] LABS: WHITE BLOOD COUNT 8.1 10^3/ul (4.8-10.8)
[2018-03-26 08:15] LABS: MAGNESIUM 1.4 mg/dl (1.7-2.5)
[2018-03-26 08:43] LABS: ALANINE AMINOTRANSFERASE 17 IU/L (13-69); ALBUMIN 2.2 g/dl (3.3-4.9); ALBUMIN/GLOBULIN RATIO 0.57; ALKALINE PHOSPHATASE 155 IU/L (42-121); ANION GAP 9 (8-16); ASPARTATE AMINO TRANSFERASE 27 IU/L (15-46); BILIRUBIN,INDIRECT 1.4 mg/dl (0-1.1); BILIRUBIN,TOTAL 2.7 mg/dl (0.2-1.3); BLOOD UREA NITROGEN 5 mg/dl (7-20); CALCIUM 7.9 mg/dl (8.4-10.2); CARBON DIOXIDE 24 mmol/L (21-31); CHLORIDE 109 mmol/L (97-110); CREATININE 0.47 mg/dl (0.44-1.00); GLUCOSE 84 mg/dl (70-220); POTASSIUM 3.3 mmol/L (3.5-5.1); SODIUM 139 mmol/L (135-144)
[2018-03-26] MEDS: CEFEPIME 1GM/50 ML (PMX) 50 ML IVPB ×2 (09:03→20:42)
[2018-03-27] MEDS: SOD CHLORIDE 0.9% 1,000 ML IV ×3 (00:27→21:08)
[2018-03-27] MEDS: morphine 2 MG INJ IV ×6 (00:27→22:37)
[2018-03-27] MEDS: VANCOMYCIN 1.25 GM in SOD CHLORIDE 0.9% 250 ML IVPB ×2 (01:21→13:08)
[2018-03-27] MEDS: PANTOPRAZOLE 40 MG INJ IV (06:36)
[2018-03-27] MEDS: LORAZEPAM 0.5 MG TAB PO (06:41)
[2018-03-27 06:52] LABS: ADD MAN DIFF? NO
[2018-03-27 07:01] LABS: BASOPHILS % 0.3 % (0.0-2.0); EOSINOPHILS # 0.2 10^3/ul (0.0-0.5); EOSINOPHILS % 2.1 % (0.0-7.0); HEMATOCRIT 23.8 % (37.0-47.0); HEMOGLOBIN 8.1 g/dl (12.0-16.0); LYMPHOCYTES # 1.3 10^3/ul (0.8-2.9); LYMPHOCYTES % 14.4 % (15.0-51.0); MEAN CORPUSCULAR HEMOGLOBIN 30.3 pg (29.0-33.0); MEAN CORPUSCULAR VOLUME 89.1 fl (82.0-101.0); MEAN PLATELET VOLUME 10.6 fl (7.4-10.4); MONOCYTE # 0.5 10^3/ul (0.3-0.9); MONOCYTES % 5.2 % (0.0-11.0); NEUTROPHIL # 6.9 10^3/ul (1.6-7.5); NEUTROPHILS % 77.2 % (39.0-77.0); PLATELET COUNT 235 10^3/UL (140-415); RED BLOOD COUNT 2.67 10^6/ul (4.20-5.40); RED CELL DISTRIBUTION WIDTH 13.7 % (11.5-14.5)
[2018-03-27 07:40] LABS: MAGNESIUM 1.5 mg/dl (1.7-2.5)
[2018-03-27] MEDS: CEFEPIME 1GM/50 ML (PMX) 50 ML IVPB ×2 (08:01→21:00)
[2018-03-27 08:09] LABS: ALANINE AMINOTRANSFERASE 22 IU/L (13-69); ALBUMIN 2.2 g/dl (3.3-4.9); ALBUMIN/GLOBULIN RATIO 0.52; ALKALINE PHOSPHATASE 212 IU/L (42-121); ANION GAP 10 (8-16); ASPARTATE AMINO TRANSFERASE 27 IU/L (15-46); BILIRUBIN,INDIRECT 1.3 mg/dl (0-1.1); BILIRUBIN,TOTAL 1.6 mg/dl (0.2-1.3); BLOOD UREA NITROGEN 3 mg/dl (7-20); CALCIUM 7.9 mg/dl (8.4-10.2); CARBON DIOXIDE 27 mmol/L (21-31); CHLORIDE 104 mmol/L (97-110); CREATININE 0.41 mg/dl (0.44-1.00); GLUCOSE 95 mg/dl (70-220); SODIUM 138 mmol/L (135-144); TOTAL PROTEIN 6.4 g/dl (6.1-8.1)
[2018-03-27 12:35] LABS: VANCOMYCIN,TROUGH 13.2 ug/ml (10.0-20.0)
[2018-03-27] MEDS: POTASSIUM CHLORIDE 100 ML IVPB ×3 (13:08→22:30)
[2018-03-27] MEDS: MAGNESIUM SULFATE 2 GM/50 ML 50 ML IVPB (15:12)
[2018-03-28] MEDS: VANCOMYCIN 1.25 GM in SOD CHLORIDE 0.9% 250 ML IVPB ×2 (00:22→12:30)
[2018-03-28] MEDS: LORAZEPAM 0.5 MG TAB PO ×3 (00:22→12:30)
[2018-03-28] MEDS: POTASSIUM CHLORIDE 100 ML IVPB (00:22)
[2018-03-28] MEDS: morphine 2 MG INJ IV ×5 (03:44→23:22)
[2018-03-28] MEDS: SOD CHLORIDE 0.9% 1,000 ML IV ×2 (05:34→16:27)
[2018-03-28] MEDS: PANTOPRAZOLE 40 MG INJ IV (05:34)
[2018-03-28 07:22] LABS: ADD MAN DIFF? NO
[2018-03-28 07:27] LABS: BASOPHIL # 0.1 10^3/ul (0.0-0.1); BASOPHILS % 0.5 % (0.0-2.0); EOSINOPHILS # 0.2 10^3/ul (0.0-0.5); EOSINOPHILS % 1.5 % (0.0-7.0); HEMATOCRIT 25.7 % (37.0-47.0); HEMOGLOBIN 8.6 g/dl (12.0-16.0); LYMPHOCYTES # 1.5 10^3/ul (0.8-2.9); LYMPHOCYTES % 15.1 % (15.0-51.0); MEAN CORPUSCULAR HEMOGLOBIN 30.5 pg (29.0-33.0); MEAN CORPUSCULAR HGB CONC 33.5 g/dl (32.0-37.0); MEAN CORPUSCULAR VOLUME 91.1 fl (82.0-101.0); MEAN PLATELET VOLUME 10.4 fl (7.4-10.4); MONOCYTE # 0.4 10^3/ul (0.3-0.9); MONOCYTES % 4.1 % (0.0-11.0); NEUTROPHIL # 7.9 10^3/ul (1.6-7.5); NEUTROPHILS % 78.1 % (39.0-77.0); PLATELET COUNT 336 10^3/UL (140-415); RED BLOOD COUNT 2.82 10^6/ul (4.20-5.40); RED CELL DISTRIBUTION WIDTH 13.5 % (11.5-14.5)
[2018-03-28 07:27] LABS: WHITE BLOOD COUNT 10.1 10^3/ul (4.8-10.8)
[2018-03-28 07:49] LABS: MAGNESIUM 2.2 mg/dl (1.7-2.5)
[2018-03-28 07:49] LABS: ANION GAP 11 (8-16); CALCIUM 8.1 mg/dl (8.4-10.2); CARBON DIOXIDE 27 mmol/L (21-31); CHLORIDE 103 mmol/L (97-110); CREATININE 0.41 mg/dl (0.44-1.00); GLUCOSE 94 mg/dl (70-220); POTASSIUM 4.1 mmol/L (3.5-5.1); SODIUM 137 mmol/L (135-144)
[2018-03-28 07:50] LABS: ALANINE AMINOTRANSFERASE 21 IU/L (13-69); ALBUMIN 2.5 g/dl (3.3-4.9); ALBUMIN/GLOBULIN RATIO 0.58; ALKALINE PHOSPHATASE 286 IU/L (42-121); ASPARTATE AMINO TRANSFERASE 39 IU/L (15-46); BILIRUBIN,INDIRECT 1.3 mg/dl (0-1.1); BILIRUBIN,TOTAL 1.5 mg/dl (0.2-1.3); TOTAL PROTEIN 6.8 g/dl (6.1-8.1)
[2018-03-28 07:55] LABS: BLOOD UREA NITROGEN < 2 mg/dl (7-20)
[2018-03-28] MEDS: CEFEPIME 1GM/50 ML (PMX) 50 ML IVPB ×2 (08:58→20:37)
[2018-03-29] MEDS: VANCOMYCIN 1.25 GM in SOD CHLORIDE 0.9% 250 ML IVPB (01:41)
[2018-03-29] MEDS: SOD CHLORIDE 0.9% 1,000 ML IV ×2 (01:46→16:52)
[2018-03-29] MEDS: morphine 2 MG INJ IV ×4 (06:25→22:59)
[2018-03-29] MEDS: PANTOPRAZOLE 40 MG INJ IV (06:25)
[2018-03-29] MEDS: CEFEPIME 1GM/50 ML (PMX) 50 ML IVPB (08:33)
[2018-03-29] MEDS: LORAZEPAM 0.5 MG TAB PO ×2 (09:46→19:29)
[2018-03-29] MEDS: LEVOFLOXACIN 750 MG TABLET PO (12:31)
[2018-03-29] MEDS: AMPICILLIN 1 GM/NS (PMX) 50 ML IVPB ×2 (12:32→18:11)
[2018-03-30] MEDS: AMPICILLIN 1 GM/NS (PMX) 50 ML IVPB ×5 (00:49→23:17)
[2018-03-30] MEDS: SOD CHLORIDE 0.9% 1,000 ML IV ×5 (02:41→23:20)
[2018-03-30] MEDS: LORAZEPAM 0.5 MG TAB PO ×2 (02:51→18:23)
[2018-03-30] MEDS: morphine 2 MG INJ IV ×5 (05:02→21:12)
[2018-03-30] MEDS: PANTOPRAZOLE 40 MG INJ IV (06:05)
[2018-03-30] MEDS: LEVOFLOXACIN 750 MG TABLET PO (06:05)
[2018-03-31] MEDS: morphine 2 MG INJ IV ×5 (01:58→20:56)
[2018-03-31] MEDS: SOD CHLORIDE 0.9% 1,000 ML IV ×4 (04:42→20:56)
[2018-03-31] MEDS: PANTOPRAZOLE 40 MG INJ IV (05:23)
[2018-03-31] MEDS: AMPICILLIN 1 GM/NS (PMX) 50 ML IVPB ×3 (05:23→17:35)
[2018-03-31] MEDS: LEVOFLOXACIN 750 MG TABLET PO (05:23)
[2018-03-31 07:05] LABS: ADD MAN DIFF? NO
[2018-03-31 07:09] LABS: BASOPHIL # 0.1 10^3/ul (0.0-0.1); BASOPHILS % 1.5 % (0.0-2.0); EOSINOPHILS # 0.1 10^3/ul (0.0-0.5); EOSINOPHILS % 1.5 % (0.0-7.0); HEMATOCRIT 27.3 % (37.0-47.0); HEMOGLOBIN 9.1 g/dl (12.0-16.0); LYMPHOCYTES # 1.5 10^3/ul (0.8-2.9); LYMPHOCYTES % 22.4 % (15.0-51.0); MEAN CORPUSCULAR HGB CONC 33.3 g/dl (32.0-37.0); MEAN CORPUSCULAR VOLUME 92.9 fl (82.0-101.0); MEAN PLATELET VOLUME 9.6 fl (7.4-10.4); MONOCYTE # 0.3 10^3/ul (0.3-0.9); MONOCYTES % 4.7 % (0.0-11.0); NEUTROPHIL # 4.6 10^3/ul (1.6-7.5); NEUTROPHILS % 69.4 % (39.0-77.0); PLATELET COUNT 505 10^3/UL (140-415); RED BLOOD COUNT 2.94 10^6/ul (4.20-5.40); RED CELL DISTRIBUTION WIDTH 13.2 % (11.5-14.5)
[2018-03-31 07:09] LABS: WHITE BLOOD COUNT 6.6 10^3/ul (4.8-10.8)
[2018-03-31 07:53] LABS: ANION GAP 10 (8-16); BLOOD UREA NITROGEN 3 mg/dl (7-20); CALCIUM 8.5 mg/dl (8.4-10.2); CARBON DIOXIDE 26 mmol/L (21-31); CHLORIDE 106 mmol/L (97-110); CREATININE 0.58 mg/dl (0.44-1.00); GLUCOSE 94 mg/dl (70-220); PHOSPHORUS 3.8 mg/dl (2.5-4.9); POTASSIUM 3.6 mmol/L (3.5-5.1); SODIUM 138 mmol/L (135-144)
[2018-03-31] MEDS: LORAZEPAM 0.5 MG TAB PO (12:54)
[2018-04-01] MEDS: AMPICILLIN 1 GM/NS (PMX) 50 ML IVPB ×5 (00:42→23:03)
[2018-04-01] MEDS: SOD CHLORIDE 0.9% 1,000 ML IV ×4 (00:42→20:23)
[2018-04-01] MEDS: morphine 2 MG INJ IV ×5 (00:52→21:21)
[2018-04-01] MEDS: LEVOFLOXACIN 750 MG TABLET PO (05:26)
[2018-04-01] MEDS: PANTOPRAZOLE 40 MG INJ IV (05:26)
[2018-04-01] MEDS ORDERED: BARIUM SULF 2% 450 ML BTL (BERRY SMOOTHIE) PO (07:00)
[2018-04-01 07:20] LABS: ADD MAN DIFF? NO
[2018-04-01 07:27] LABS: BASOPHIL # 0.1 10^3/ul (0.0-0.1); BASOPHILS % 1.9 % (0.0-2.0); EOSINOPHILS # 0.1 10^3/ul (0.0-0.5); EOSINOPHILS % 1.8 % (0.0-7.0); HEMATOCRIT 27.1 % (37.0-47.0); HEMOGLOBIN 8.8 g/dl (12.0-16.0); LYMPHOCYTES # 1.5 10^3/ul (0.8-2.9); LYMPHOCYTES % 24.7 % (15.0-51.0); MEAN CORPUSCULAR HEMOGLOBIN 29.9 pg (29.0-33.0); MEAN CORPUSCULAR HGB CONC 32.5 g/dl (32.0-37.0); MEAN CORPUSCULAR VOLUME 92.2 fl (82.0-101.0); MEAN PLATELET VOLUME 9.6 fl (7.4-10.4); MONOCYTE # 0.3 10^3/ul (0.3-0.9); MONOCYTES % 5.2 % (0.0-11.0); NEUTROPHIL # 4.1 10^3/ul (1.6-7.5); NEUTROPHILS % 65.9 % (39.0-77.0); PLATELET COUNT 505 10^3/UL (140-415); RED BLOOD COUNT 2.94 10^6/ul (4.20-5.40); RED CELL DISTRIBUTION WIDTH 13.6 % (11.5-14.5)
[2018-04-01 07:27] LABS: WHITE BLOOD COUNT 6.2 10^3/ul (4.8-10.8)
[2018-04-01 07:55] LABS: MAGNESIUM 1.9 mg/dl (1.7-2.5)
[2018-04-01 07:55] LABS: PHOSPHORUS 3.8 mg/dl (2.5-4.9)
[2018-04-01 08:29] LABS: ALANINE AMINOTRANSFERASE 46 IU/L (13-69); ALBUMIN 2.7 g/dl (3.3-4.9); ALBUMIN/GLOBULIN RATIO 0.67; ALKALINE PHOSPHATASE 987 IU/L (42-121); ANION GAP 10 (8-16); ASPARTATE AMINO TRANSFERASE 84 IU/L (15-46); BILIRUBIN,INDIRECT 0.9 mg/dl (0-1.1); BILIRUBIN,TOTAL 0.9 mg/dl (0.2-1.3); BLOOD UREA NITROGEN 3 mg/dl (7-20); CALCIUM 8.6 mg/dl (8.4-10.2); CARBON DIOXIDE 26 mmol/L (21-31); CHLORIDE 107 mmol/L (97-110); CREATININE 0.62 mg/dl (0.44-1.00); GLUCOSE 96 mg/dl (70-220); SODIUM 139 mmol/L (135-144); TOTAL PROTEIN 6.7 g/dl (6.1-8.1)
[2018-04-01] MEDS: SOD CHLORIDE 0.9% 100 ML (11:53)
[2018-04-01] MEDS: IOHEXOL 300MG/ML 150 ML BTL (11:53)
[2018-04-01] MEDS: LORAZEPAM 0.5 MG TAB PO ×2 (12:30→20:40)
[2018-04-02] MEDS: morphine 2 MG INJ IV ×5 (01:07→21:51)
[2018-04-02] MEDS: SOD CHLORIDE 0.9% 1,000 ML IV (03:22)
[2018-04-02] MEDS: PANTOPRAZOLE 40 MG INJ IV (05:15)
[2018-04-02] MEDS: LEVOFLOXACIN 750 MG TABLET PO (05:18)
[2018-04-02] MEDS: AMPICILLIN 1 GM/NS (PMX) 50 ML IVPB ×4 (05:19→23:34)
[2018-04-02] MEDS: LORAZEPAM 0.5 MG TAB PO (16:39)
[2018-04-02] MEDS: FAMOTIDINE 20 MG TAB PO (20:05)
[2018-04-02] MEDS: LACTOBACILLUS RHAMNOSUS CAP PO (20:05)
[2018-04-03] MEDS: morphine 2 MG INJ IV ×4 (01:45→17:24)
[2018-04-03] MEDS: AMPICILLIN 1 GM/NS (PMX) 50 ML IVPB ×3 (05:42→17:24)
[2018-04-03] MEDS: LEVOFLOXACIN 750 MG TABLET PO (05:42)
[2018-04-03 06:15] LABS: ADD MAN DIFF? NO
[2018-04-03 06:17] LABS: BASOPHIL # 0.1 10^3/ul (0.0-0.1); BASOPHILS % 1.4 % (0.0-2.0); EOSINOPHILS # 0.1 10^3/ul (0.0-0.5); EOSINOPHILS % 1.4 % (0.0-7.0); HEMATOCRIT 27.7 % (37.0-47.0); HEMOGLOBIN 9.1 g/dl (12.0-16.0); LYMPHOCYTES # 1.6 10^3/ul (0.8-2.9); LYMPHOCYTES % 24.5 % (15.0-51.0); MEAN CORPUSCULAR HEMOGLOBIN 30.5 pg (29.0-33.0); MEAN CORPUSCULAR HGB CONC 32.9 g/dl (32.0-37.0); MEAN PLATELET VOLUME 9.5 fl (7.4-10.4); MONOCYTE # 0.4 10^3/ul (0.3-0.9); MONOCYTES % 6.1 % (0.0-11.0); NEUTROPHIL # 4.2 10^3/ul (1.6-7.5); NEUTROPHILS % 66.1 % (39.0-77.0); PLATELET COUNT 481 10^3/UL (140-415); RED BLOOD COUNT 2.98 10^6/ul (4.20-5.40); RED CELL DISTRIBUTION WIDTH 13.3 % (11.5-14.5)
[2018-04-03 06:17] LABS: WHITE BLOOD COUNT 6.4 10^3/ul (4.8-10.8)
[2018-04-03 06:41] LABS: ALANINE AMINOTRANSFERASE 34 IU/L (13-69); ALBUMIN 2.9 g/dl (3.3-4.9); ALBUMIN/GLOBULIN RATIO 0.69; ALKALINE PHOSPHATASE 707 IU/L (42-121); ANION GAP 11 (8-16); ASPARTATE AMINO TRANSFERASE 49 IU/L (15-46); BILIRUBIN,INDIRECT 0.9 mg/dl (0-1.1); BILIRUBIN,TOTAL 0.9 mg/dl (0.2-1.3); BLOOD UREA NITROGEN 4 mg/dl (7-20); CALCIUM 8.9 mg/dl (8.4-10.2); CARBON DIOXIDE 27 mmol/L (21-31); CHLORIDE 104 mmol/L (97-110); CREATININE 0.58 mg/dl (0.44-1.00); GLUCOSE 94 mg/dl (70-220); MAGNESIUM 1.8 mg/dl (1.7-2.5); PHOSPHORUS 4.3 mg/dl (2.5-4.9); POTASSIUM 3.1 mmol/L (3.5-5.1); SODIUM 139 mmol/L (135-144); TOTAL PROTEIN 7.1 g/dl (6.1-8.1)
[2018-04-03] MEDS: POTASSIUM CHLORIDE (SR) 20 MEQ TAB PO (09:08)
[2018-04-03] MEDS: ENOXAPARIN 40 MG/0.4 ML SYG SC (09:08)
[2018-04-03] MEDS: LORAZEPAM 0.5 MG TAB PO (09:08)
[2018-04-03] MEDS: LACTOBACILLUS RHAMNOSUS CAP PO ×2 (09:08→19:38)
[2018-04-03] MEDS: POTASSIUM CHLORIDE 20 MEQ POWDER FOR ORAL SOLN PO (13:00)
[2018-04-03] MEDS: LIDOCAINE 1% (MPF) 5 ML VIAL SC (13:45)
[2018-04-03] MEDS: FAMOTIDINE 20 MG TAB PO (19:38)
== END 2018-04-03 21:12 | disposition home health service (06) | DRG 871 ==
LOC: TEL 03-24 18:50 → E/R 20:50 → ICU 03-22 00:01
PROC: 0F913ZZ Drainage of Right Lobe Liver, Percutaneous Approach (ICD-10-PCS; principal; 2018-03-23)
PROC: B54NZZA Ultrasonography of Left Upper Extremity Veins, Guidance (ICD-10-PCS; 2018-04-03)
PROC: 02HV33Z Insertion of Infusion Device into Superior Vena Cava, Percutaneous Approach (ICD-10-PCS; 2018-04-03)
DX: A40.8 Other streptococcal sepsis (principal); R65.21 Severe sepsis with septic shock; J18.9 Pneumonia, unspecified organism; N17.0 Acute kidney failure with tubular necrosis; K75.0 Abscess of liver; K83.1 Obstruction of bile duct; C22.1 Intrahepatic bile duct carcinoma; E87.2 Acidosis; D68.9 Coagulation defect, unspecified; K31.1 Adult hypertrophic pyloric stenosis; C78.89 Secondary malignant neoplasm of other digestive organs; K31.5 Obstruction of duodenum; F41.9 Anxiety disorder, unspecified; D69.6 Thrombocytopenia, unspecified; E87.6 Hypokalemia; D64.9 Anemia, unspecified; E66.9 Obesity, unspecified; Z87.440 Personal history of urinary (tract) infections; Z85.09 Personal history of malignant neoplasm of other digestive organs
CPT/HCPCS: 36415; 36569; 71045; 74176; 74177; 76705; 76937; 77012; 80048; 80053; 80076; 80202; 81001; 81003; 81025; 83605; 83690; 83735; 84100; 84484; 85025; 85610; 85730; 86850; 86900; 86901; 87040; 87070; 87081; 87086; 93005; 96374; 96375; 97161; 99291-25

== ENCOUNTER 2018-06-02 00:57 | Inpatient (IN) | payer BC ==
[2018-06-02 01:35] LABS: ADD MAN DIFF? NO
[2018-06-02 01:38] LABS: ABNORMAL IP MESSAGE 1; HEMATOCRIT 19.9 % (37.0-47.0); MEAN CORPUSCULAR HEMOGLOBIN 30.2 pg (29.0-33.0); MEAN CORPUSCULAR HGB CONC 32.2 g/dl (32.0-37.0); MEAN CORPUSCULAR VOLUME 93.9 fl (82.0-101.0); NUCLEATED RED BLOOD CELLS% 0.9 /100WBC (0.0-0.0); PLATELET COUNT 430 10^3/UL (140-415); RED BLOOD COUNT 2.12 10^6/ul (4.20-5.40); RED CELL DISTRIBUTION WIDTH 21.1 % (11.5-14.5)
[2018-06-02 01:38] LABS: WHITE BLOOD COUNT 21.4 10^3/ul (4.8-10.8)
[2018-06-02 01:41] LABS: HEMOGLOBIN 6.4 g/dl (12.0-16.0); POSITIVE DIFF @See below
[2018-06-02] MEDS: ONDANSETRON 4 MG INJ IV (01:56)
[2018-06-02] MEDS: morphine 4 MG/ML VIAL IV (01:56)
[2018-06-02 01:57] LABS: ALANINE AMINOTRANSFERASE 7 IU/L (13-69); ALBUMIN 3.1 g/dl (3.3-4.9); ALBUMIN/GLOBULIN RATIO 0.73; ALKALINE PHOSPHATASE 337 IU/L (42-121); ANION GAP 22 (5-13); ASPARTATE AMINO TRANSFERASE 67 IU/L (15-46); BILIRUBIN,INDIRECT 0.7 mg/dl (0-1.1); BILIRUBIN,TOTAL 0.9 mg/dl (0.2-1.3); BLOOD UREA NITROGEN 15 mg/dl (7-20); CALCIUM 8.3 mg/dl (8.4-10.2); CARBON DIOXIDE 15 mmol/L (21-31); CHLORIDE 98 mmol/L (97-110); CREATININE 0.83 mg/dl (0.44-1.00); Estimated GFR > 60 mL/min (>60); GLUCOSE 99 mg/dl (70-220); POTASSIUM 4.2 mmol/L (3.5-5.1); SODIUM 135 mmol/L (135-144); TOTAL PROTEIN 7.3 g/dl (6.1-8.1)
[2018-06-02] MEDS: SODIUM CHLORIDE 0.9% 1L BAG IV* (01:57)
[2018-06-02 01:58] LABS: INR 1.41; LIPASE < 10 U/L (23-300); PROTIME 17.5 Sec (11.9-14.9); PT RATIO 1.4
[2018-06-02] MEDS: PIPER-TAZO 3.375 GM IV (PMX) 100 ML IVPB ×4 (01:58→17:19)
[2018-06-02] MEDS: ACETAMINOPHEN 325 MG TAB PO (01:59)
[2018-06-02 02:08] LABS: TROPONIN-I < 0.012 ng/ml (0.000-0.120)
[2018-06-02] MEDS: KETOROLAC 30 MG INJ IV (02:52)
[2018-06-02] MEDS: NORepinephrine 8MG/250 ML (PMX 250 ML IV (03:50)
[2018-06-02] MEDS: SOD CHLORIDE 0.9% 250 ML IV (03:58)
[2018-06-02 03:59] LABS: AADO2 Arterial 45.6 mmHg (7.0-24.0); Allen Test ACCEPTAB; Arterial COHb 0.8 % (0.0-3.0); Arterial Fraction of Oxyhgb 92.8 % (93.0-99.0); Arterial HCO3 17.3 mmol/L (22.0-26.0); Arterial MetHb 0.5 % (0.0-1.5); Arterial Total Hemglobin 5.7 g/dl (12.0-18.0); Arterial pCO2 24.6 mmhg (35-45); MODE ROOM AIR; Site Left Radial
[2018-06-02] MEDS ORDERED: VANCOMYCIN IV PER PHARMACY XX (04:00)
[2018-06-02 04:41] LABS: ANISOCYTOSIS 2+ (0-0); BAND NEUTROPHILS #M 4.7 10^3/ul (0.0-0.6); BAND NEUTROPHILS % (M) 22 % (0-4); LYMPHOCYTES #M 5.9 10^3/ul (0.8-2.9); LYMPHOCYTES % (M) 28 % (15-51); MONOCYTE #M 0.2 10^3/ul (0.3-0.9); MONOCYTES % (M) 1 % (0-11); PLATELET ESTIMATE NORMAL; POIKILOCYTOSIS 3+ (0-0); POLYCHROMASIA 3+ (0-0); SEG NEUT #M 11.5 10^3/ul (1.6-7.5); SEGMENTED NEUTROPHILS (M) % 49 % (39-77); SMUDGE%M 7 % (0-0)
[2018-06-02] MEDS: IOHEXOL 300MG/ML 150 ML BTL (04:54)
[2018-06-02] MEDS: SOD CHLORIDE 0.9% 100 ML (04:54)
[2018-06-02 05:24] LABS: HEMOGLOBIN A1C 5.8 % (0-5.9)
[2018-06-02] MEDS: ALBUTEROL 0.083% (NEB) 2.5 MG/3 ML AMP NEB ×5 (05:37→20:02)
[2018-06-02] MEDS: IPRATROPIUM (NEB) 0.5 MG/2.5 ML AMP NEB ×5 (05:37→20:02)
[2018-06-02] MEDS: PANTOPRAZOLE 40 MG INJ IV (05:39)
[2018-06-02] MEDS: SOD CHLORIDE 0.9% 1,000 ML IV ×3 (05:43→19:00)
[2018-06-02 06:51] LABS: LACTIC ACID 5.6 mmol/L (0.5-2.0)
[2018-06-02 06:56] LABS: IRON 14 ug/dl (35-150)
[2018-06-02 07:05] LABS: % IRON SATURATION 8 % SAT (22-52); TOTAL IRON BINDING CAPACITY 178 ug/dl (241-421)
[2018-06-02] MEDS: VANCOMYCIN 1.25 GM in SOD CHLORIDE 0.9% 250 ML IVPB (07:53)
[2018-06-02 08:07] LABS: FERRITIN 48.8 ng/ml (6.2-137.0)
[2018-06-02 08:47] LABS: ABNORMAL IP MESSAGE 1; HEMATOCRIT 19.8 % (37.0-47.0); MEAN CORPUSCULAR HEMOGLOBIN 29.4 pg (29.0-33.0); MEAN CORPUSCULAR HGB CONC 32.8 g/dl (32.0-37.0); MEAN CORPUSCULAR VOLUME 89.6 fl (82.0-101.0); MEAN PLATELET VOLUME 11.3 fl (7.4-10.4); NUCLEATED RED BLOOD CELLS% 0.2 /100WBC (0.0-0.0); PLATELET COUNT 373 10^3/UL (140-415); RED BLOOD COUNT 2.21 10^6/ul (4.20-5.40); RED CELL DISTRIBUTION WIDTH 19.8 % (11.5-14.5)
[2018-06-02 08:47] LABS: WHITE BLOOD COUNT 27.5 10^3/ul (4.8-10.8)
[2018-06-02 08:54] LABS: ADD MAN DIFF? YES; HEMOGLOBIN 6.5 g/dl (12.0-16.0); POSITIVE DIFF @See below
[2018-06-02 09:04] LABS: LACTIC ACID 2.9 mmol/L (0.5-2.0)
[2018-06-02] MEDS: LACTOBACILLUS RHAMNOSUS CAP PO ×2 (09:48→20:21)
[2018-06-02 10:04] LABS: ANISOCYTOSIS 3+ (0-0); BAND NEUTROPHILS #M 4.1 10^3/ul (0.0-0.6); BAND NEUTROPHILS % (M) 15 % (0-4); BURR CELLS 3+ (0-0); EOSINOPHILS % (M) 1 % (0-7); ERYTHROBLAST% (NRBC) (M) 1 % (0-0); GIANT THROMBO% (M) 1 % (0-0); LYMPHOCYTES % (M) 11 % (15-51); MONOCYTE #M 1.1 10^3/ul (0.3-0.9); MONOCYTES % (M) 4 % (0-11); MYELOCYTES #M 0.2 10^3/ul (0.0-0.0); MYELOCYTES % (M) 1 % (0-0); OVALOCYTES 2+ (0-0); PLATELET ESTIMATE NORMAL; PLATELET MORPHOLOGY COMMENT @See below; POIKILOCYTOSIS 3+ (0-0); POLYCHROMASIA 2+ (0-0); REACTIVE LYMPHOCYTES #M 0.2 10^3/ul (0.0-0.0); REACTIVE LYMPHOCYTES% (M) 1 % (0-0); SEG NEUT #M 19.6 10^3/ul (1.6-7.5); SEGMENTED NEUTROPHILS (M) % 67 % (39-77); SMUDGE%M 4 % (0-0); TARGET CELLS 1+ (0-0); TEAR DROP CELLS 1+ (0-0)
[2018-06-02] MEDS: SOD CHLORIDE 0.9% 250 ML IV* (10:05)
[2018-06-02 12:05] LABS: IMMEDIATE SPIN CROSSMATCH 1 4
[2018-06-02 14:33] LABS: WHITE BLOOD COUNT 21.9 10^3/ul (4.8-10.8)
[2018-06-02 14:33] LABS: ABNORMAL IP MESSAGE 1; HEMATOCRIT 27.8 % (37.0-47.0); HEMOGLOBIN 9.2 g/dl (12.0-16.0); MEAN CORPUSCULAR HEMOGLOBIN 29.3 pg (29.0-33.0); MEAN CORPUSCULAR HGB CONC 33.1 g/dl (32.0-37.0); MEAN CORPUSCULAR VOLUME 88.5 fl (82.0-101.0); NUCLEATED RED BLOOD CELLS% 0.2 /100WBC (0.0-0.0); PLATELET COUNT 310 10^3/UL (140-415); RED BLOOD COUNT 3.14 10^6/ul (4.20-5.40); RED CELL DISTRIBUTION WIDTH 18.3 % (11.5-14.5)
[2018-06-02 14:38] LABS: POSITIVE DIFF @See below
[2018-06-02 14:42] LABS: ADD MAN DIFF? YES
[2018-06-02 14:49] LABS: LACTIC ACID 2.8 mmol/L (0.5-2.0)
[2018-06-02 15:12] LABS: ANISOCYTOSIS 1+ (0-0); BAND NEUTROPHILS #M 2.1 10^3/ul (0.0-0.6); BAND NEUTROPHILS % (M) 10 % (0-4); GIANT THROMBO% (M) 1 % (0-0); LYMPHOCYTES #M 2.8 10^3/ul (0.8-2.9); LYMPHOCYTES % (M) 13 % (15-51); MONOCYTE #M 2.1 10^3/ul (0.3-0.9); MONOCYTES % (M) 10 % (0-11); MYELOCYTES #M 0.2 10^3/ul (0.0-0.0); MYELOCYTES % (M) 1 % (0-0); PLATELET ESTIMATE NORMAL; POIKILOCYTOSIS 3+ (0-0); POLYCHROMASIA 2+ (0-0); REACTIVE LYMPHOCYTES #M 0.2 10^3/ul (0.0-0.0); REACTIVE LYMPHOCYTES% (M) 1 % (0-0); SEG NEUT #M 14.7 10^3/ul (1.6-7.5); SEGMENTED NEUTROPHILS (M) % 65 % (39-77); SMUDGE%M 5 % (0-0)
[2018-06-02] MEDS: VANCOMYCIN 1 GM 250 ML IVPB (18:37)
[2018-06-02 19:39] LABS: WHITE BLOOD COUNT 20.3 10^3/ul (4.8-10.8)
[2018-06-02 19:39] LABS: ABNORMAL IP MESSAGE 1; HEMATOCRIT 25.7 % (37.0-47.0); HEMOGLOBIN 8.7 g/dl (12.0-16.0); MEAN CORPUSCULAR HEMOGLOBIN 29.8 pg (29.0-33.0); MEAN CORPUSCULAR HGB CONC 33.9 g/dl (32.0-37.0); MEAN PLATELET VOLUME 11.3 fl (7.4-10.4); PLATELET COUNT 265 10^3/UL (140-415); RED BLOOD COUNT 2.92 10^6/ul (4.20-5.40); RED CELL DISTRIBUTION WIDTH 17.7 % (11.5-14.5)
[2018-06-02 19:41] LABS: POSITIVE DIFF @See below
[2018-06-02 19:42] LABS: ADD MAN DIFF? YES
[2018-06-02 20:02] LABS: LACTIC ACID 3.5 mmol/L (0.5-2.0)
[2018-06-02] MEDS: SOD CHLORIDE 0.9% 500 ML IV (20:21)
[2018-06-02 20:33] LABS: ANISOCYTOSIS 1+ (0-0); BAND NEUTROPHILS #M 3.6 10^3/ul (0.0-0.6); BAND NEUTROPHILS % (M) 18 % (0-4); BASOPHIL #M 0.2 10^3/ul (0.0-0.0); BASOPHILS % (M) 1 % (0-2); EOSINOPHILS % (M) 1 % (0-7); LYMPHOCYTES #M 1.6 10^3/ul (0.8-2.9); LYMPHOCYTES % (M) 8 % (15-51); MONOCYTES % (M) 5 % (0-11); MYELOCYTES #M 0.2 10^3/ul (0.0-0.0); MYELOCYTES % (M) 1 % (0-0); PLATELET ESTIMATE NORMAL; POIKILOCYTOSIS 2+ (0-0); POLYCHROMASIA 2+ (0-0); SEG NEUT #M 14.1 10^3/ul (1.6-7.5); SEGMENTED NEUTROPHILS (M) % 66 % (39-77); SMUDGE%M 6 % (0-0)
[2018-06-02 21:31] LABS: ANION GAP 10 (5-13); BLOOD UREA NITROGEN 13 mg/dl (7-20); CALCIUM 7.4 mg/dl (8.4-10.2); CARBON DIOXIDE 19 mmol/L (21-31); CHLORIDE 107 mmol/L (97-110); CREATININE 0.68 mg/dl (0.44-1.00); Estimated GFR > 60 mL/min (>60); GLUCOSE 148 mg/dl (70-220); MAGNESIUM 1.8 mg/dl (1.7-2.5); POTASSIUM 3.1 mmol/L (3.5-5.1); SODIUM 136 mmol/L (135-144)
[2018-06-02 21:42] LABS: CK-MB < 0.22 ng/ml (0.0-2.4); TROPONIN-I < 0.012 ng/ml (0.000-0.120)
[2018-06-02 21:44] LABS: CREATINE KINASE < 20 IU/L (23-200)
[2018-06-02] MEDS: MAGNESIUM SULFATE 2 GM/50 ML 50 ML IVPB (22:32)
[2018-06-02] MEDS: POTASSIUM CHLORIDE 100 ML IVPB (22:33)
[2018-06-03] MEDS: ALBUTEROL 0.083% (NEB) 2.5 MG/3 ML AMP NEB ×6 (00:08→21:11)
[2018-06-03] MEDS: IPRATROPIUM (NEB) 0.5 MG/2.5 ML AMP NEB ×6 (00:08→21:11)
[2018-06-03] MEDS: POTASSIUM CHLORIDE 100 ML IVPB ×3 (00:43→04:49)
[2018-06-03] MEDS: PIPER-TAZO 3.375 GM IV (PMX) 100 ML IVPB ×5 (01:21→23:32)
[2018-06-03 01:52] LABS: HEMATOCRIT 24.1 % (37.0-47.0); HEMOGLOBIN 8.2 g/dl (12.0-16.0); MEAN CORPUSCULAR HEMOGLOBIN 29.8 pg (29.0-33.0); MEAN CORPUSCULAR VOLUME 87.6 fl (82.0-101.0); MEAN PLATELET VOLUME 10.7 fl (7.4-10.4); NUCLEATED RED BLOOD CELLS% 0.1 /100WBC (0.0-0.0); PLATELET COUNT 278 10^3/UL (140-415); RED BLOOD COUNT 2.75 10^6/ul (4.20-5.40); RED CELL DISTRIBUTION WIDTH 17.9 % (11.5-14.5)
[2018-06-03 01:52] LABS: WHITE BLOOD COUNT 15.1 10^3/ul (4.8-10.8)
[2018-06-03 01:55] LABS: ADD MAN DIFF? YES; POSITIVE DIFF @See below
[2018-06-03 02:13] LABS: LACTIC ACID 3.5 mmol/L (0.5-2.0)
[2018-06-03 02:43] LABS: ANISOCYTOSIS 2+ (0-0); BAND NEUTROPHILS #M 2.8 10^3/ul (0.0-0.6); BAND NEUTROPHILS % (M) 19 % (0-4); BASOPHIL #M 0.1 10^3/ul (0.0-0.0); BASOPHILS % (M) 1 % (0-2); EOSINOPHILS % (M) 1 % (0-7); LYMPHOCYTES #M 1.6 10^3/ul (0.8-2.9); LYMPHOCYTES % (M) 11 % (15-51); MONOCYTE #M 0.1 10^3/ul (0.3-0.9); MONOCYTES % (M) 1 % (0-11); PLATELET ESTIMATE NORMAL; POIKILOCYTOSIS 3+ (0-0); REACTIVE LYMPHOCYTES #M 0.3 10^3/ul (0.0-0.0); REACTIVE LYMPHOCYTES% (M) 2 % (0-0); SEG NEUT #M 10.2 10^3/ul (1.6-7.5); SEGMENTED NEUTROPHILS (M) % 65 % (39-77); SMUDGE%M 1 % (0-0)
[2018-06-03] MEDS: SOD CHLORIDE 0.9% 1,000 ML IV ×3 (03:00→21:18)
[2018-06-03] MEDS: LORAZEPAM 1 MG TAB PO ×2 (04:49→22:02)
[2018-06-03] MEDS: PANTOPRAZOLE 40 MG INJ IV (05:29)
[2018-06-03 05:42] LABS: ALANINE AMINOTRANSFERASE 17 IU/L (13-69); ALBUMIN/GLOBULIN RATIO 0.66; ALKALINE PHOSPHATASE 227 IU/L (42-121); ANION GAP 10 (5-13); ASPARTATE AMINO TRANSFERASE 24 IU/L (15-46); BILIRUBIN,INDIRECT 1.1 mg/dl (0-1.1); BILIRUBIN,TOTAL 1.7 mg/dl (0.2-1.3); BLOOD UREA NITROGEN 10 mg/dl (7-20); CALCIUM 7.3 mg/dl (8.4-10.2); CARBON DIOXIDE 18 mmol/L (21-31); CHLORIDE 110 mmol/L (97-110); CREATININE 0.62 mg/dl (0.44-1.00); Estimated GFR > 60 mL/min (>60); GLUCOSE 112 mg/dl (70-220); MAGNESIUM 2.2 mg/dl (1.7-2.5); POTASSIUM 4.5 mmol/L (3.5-5.1); SODIUM 138 mmol/L (135-144)
[2018-06-03] MEDS: VANCOMYCIN 1 GM 250 ML IVPB ×2 (06:13→19:30)
[2018-06-03] MEDS: LACTOBACILLUS RHAMNOSUS CAP PO ×2 (08:00→21:12)
[2018-06-03] MEDS: ACETAMINOPHEN 650MG/20.3ML CUP PO ×2 (08:00→21:12)
[2018-06-03] MEDS: morphine 2 MG INJ IV ×4 (08:38→23:33)
[2018-06-03 09:28] LABS: LACTIC ACID 2.5 mmol/L (0.5-2.0)
[2018-06-03 18:40] LABS: VANCOMYCIN,TROUGH 15.2 ug/ml (10.0-20.0)
[2018-06-04] MEDS: ALBUTEROL 0.083% (NEB) 2.5 MG/3 ML AMP NEB ×6 (00:18→19:36)
[2018-06-04] MEDS: IPRATROPIUM (NEB) 0.5 MG/2.5 ML AMP NEB ×6 (00:18→19:36)
[2018-06-04] MEDS: ACETAMINOPHEN 650MG/20.3ML CUP PO ×2 (04:18→10:55)
[2018-06-04] MEDS: morphine 2 MG INJ IV ×3 (04:32→20:25)
[2018-06-04 04:57] LABS: ADD MAN DIFF? NO
[2018-06-04 04:59] LABS: WHITE BLOOD COUNT 21.1 10^3/ul (4.8-10.8)
[2018-06-04 04:59] LABS: ABNORMAL IP MESSAGE 1; BASOPHIL # 0.1 10^3/ul (0.0-0.1); BASOPHILS % 0.2 % (0.0-2.0); EOSINOPHILS # 0.2 10^3/ul (0.0-0.5); EOSINOPHILS % 1.1 % (0.0-7.0); HEMATOCRIT 24.5 % (37.0-47.0); HEMOGLOBIN 8.4 g/dl (12.0-16.0); LYMPHOCYTES # 2.2 10^3/ul (0.8-2.9); LYMPHOCYTES % 10.2 % (15.0-51.0); MEAN CORPUSCULAR HEMOGLOBIN 29.9 pg (29.0-33.0); MEAN CORPUSCULAR HGB CONC 34.3 g/dl (32.0-37.0); MEAN CORPUSCULAR VOLUME 87.2 fl (82.0-101.0); MEAN PLATELET VOLUME 11.1 fl (7.4-10.4); MONOCYTE # 1.9 10^3/ul (0.3-0.9); MONOCYTES % 9.1 % (0.0-11.0); NEUTROPHIL # 16.4 10^3/ul (1.6-7.5); PLATELET COUNT 252 10^3/UL (140-415); RED BLOOD COUNT 2.81 10^6/ul (4.20-5.40); RED CELL DISTRIBUTION WIDTH 18.6 % (11.5-14.5)
[2018-06-04 05:28] LABS: POSITIVE DIFF @See below
[2018-06-04 05:40] LABS: ALBUMIN/GLOBULIN RATIO 0.69; ANION GAP 8 (5-13); BILIRUBIN,TOTAL 2.2 mg/dl (0.2-1.3); Estimated GFR > 60 mL/min (>60)
[2018-06-04 05:41] LABS: BLOOD UREA NITROGEN 6 mg/dl (7-20); CALCIUM 7.5 mg/dl (8.4-10.2); CARBON DIOXIDE 19 mmol/L (21-31); CHLORIDE 108 mmol/L (97-110); CREATININE 0.52 mg/dl (0.44-1.00); GLUCOSE 88 mg/dl (70-220); MAGNESIUM 1.7 mg/dl (1.7-2.5); POTASSIUM 4.2 mmol/L (3.5-5.1); SODIUM 135 mmol/L (135-144)
[2018-06-04 05:42] LABS: ALANINE AMINOTRANSFERASE 11 IU/L (13-69); ALBUMIN 2.3 g/dl (3.3-4.9); ALKALINE PHOSPHATASE 245 IU/L (42-121); ASPARTATE AMINO TRANSFERASE 22 IU/L (15-46); BILIRUBIN,INDIRECT 1.4 mg/dl (0-1.1); TOTAL PROTEIN 5.6 g/dl (6.1-8.1)
[2018-06-04] MEDS: PIPER-TAZO 3.375 GM IV (PMX) 100 ML IVPB ×3 (06:28→18:39)
[2018-06-04] MEDS: PANTOPRAZOLE 40 MG INJ IV (06:28)
[2018-06-04 08:29] LABS: ADD UMIC NO; UR ASCORBIC ACID NEGATIVE (NEGATIVE); UR BACTERIA FEW /HPF (NONE SEEN); UR BILIRUBIN (Dip) NEGATIVE (NEGATIVE); UR BLOOD (Dip) NEGATIVE (NEGATIVE); UR CLARITY SLIGHTLY CLOUDY (CLEAR); UR COLOR AMBER (YELLOW); UR GLUCOSE (Dip) NEGATIVE (NEGATIVE); UR KETONES (Dip) NEGATIVE (NEGATIVE); UR LEUKOCYTE ESTERASE (Dip) NEGATIVE Leu/ul (NEGATIVE); UR MUCUS FEW /HPF (NONE SEEN); UR NITRITE (Dip) NEGATIVE (NEGATIVE); UR RBC 0 /HPF (0-5); UR SPECIFIC GRAVITY (Dip) 1.019 (1.003-1.030); UR SQUAMOUS EPITHELIAL CELL FEW /HPF (FEW); UR TOTAL PROTEIN (Dip) NEGATIVE (NEGATIVE); UR UROBILINOGEN (Dip) NEGATIVE (NEGATIVE); UR WBC 3 /HPF (0-5)
[2018-06-04] MEDS: LACTOBACILLUS RHAMNOSUS CAP PO ×2 (09:00→20:25)
[2018-06-04] MEDS: VANCOMYCIN 1 GM 250 ML IVPB (10:09)
[2018-06-04] MEDS: PROMETHAZINE/CODEINE 5ML CUP PO ×2 (10:48→23:19)
[2018-06-04] MEDS: SOD CHLORIDE 0.9% 1,000 ML IV (12:00)
[2018-06-04] MEDS: LINEZOLID 600 MG/D5W (PMX) 300 ML IVPB ×2 (14:28→20:25)
[2018-06-05] MEDS: SOD CHLORIDE 0.9% 1,000 ML IV ×2 (00:21→14:56)
[2018-06-05] MEDS: morphine 2 MG INJ IV ×5 (00:22→23:10)
[2018-06-05] MEDS: PIPER-TAZO 3.375 GM IV (PMX) 100 ML IVPB ×3 (00:28→11:48)
[2018-06-05] MEDS: ALBUTEROL 0.083% (NEB) 2.5 MG/3 ML AMP NEB ×6 (01:00→20:29)
[2018-06-05] MEDS: IPRATROPIUM (NEB) 0.5 MG/2.5 ML AMP NEB ×6 (01:00→20:30)
[2018-06-05 05:07] LABS: ADD MAN DIFF? NO
[2018-06-05 05:15] LABS: ABNORMAL IP MESSAGE 1; BASOPHIL # 0.1 10^3/ul (0.0-0.1); BASOPHILS % 0.4 % (0.0-2.0); EOSINOPHILS # 0.4 10^3/ul (0.0-0.5); EOSINOPHILS % 1.6 % (0.0-7.0); HEMATOCRIT 23.5 % (37.0-47.0); HEMOGLOBIN 7.8 g/dl (12.0-16.0); LYMPHOCYTES # 2.7 10^3/ul (0.8-2.9); LYMPHOCYTES % 11.8 % (15.0-51.0); MEAN CORPUSCULAR HEMOGLOBIN 29.5 pg (29.0-33.0); MEAN CORPUSCULAR HGB CONC 33.2 g/dl (32.0-37.0); MEAN PLATELET VOLUME 10.7 fl (7.4-10.4); MONOCYTE # 1.8 10^3/ul (0.3-0.9); NEUTROPHILS % 75.7 % (39.0-77.0); PLATELET COUNT 266 10^3/UL (140-415); RED BLOOD COUNT 2.64 10^6/ul (4.20-5.40); RED CELL DISTRIBUTION WIDTH 18.9 % (11.5-14.5)
[2018-06-05 05:15] LABS: WHITE BLOOD COUNT 22.5 10^3/ul (4.8-10.8)
[2018-06-05 05:20] LABS: POSITIVE DIFF @See below
[2018-06-05 05:35] LABS: ALANINE AMINOTRANSFERASE 18 IU/L (13-69); ALBUMIN 1.8 g/dl (3.3-4.9); ALKALINE PHOSPHATASE 174 IU/L (42-121); ANION GAP 7 (5-13); ASPARTATE AMINO TRANSFERASE 16 IU/L (15-46); BILIRUBIN,INDIRECT 1.2 mg/dl (0-1.1); BILIRUBIN,TOTAL 1.9 mg/dl (0.2-1.3); BLOOD UREA NITROGEN 5 mg/dl (7-20); CALCIUM 7.4 mg/dl (8.4-10.2); CARBON DIOXIDE 21 mmol/L (21-31); CHLORIDE 108 mmol/L (97-110); CREATININE 0.48 mg/dl (0.44-1.00); Estimated GFR > 60 mL/min (>60); GLUCOSE 84 mg/dl (70-220); MAGNESIUM 1.5 mg/dl (1.7-2.5); POTASSIUM 3.5 mmol/L (3.5-5.1); SODIUM 136 mmol/L (135-144); TOTAL PROTEIN 4.8 g/dl (6.1-8.1)
[2018-06-05] MEDS: PANTOPRAZOLE 40 MG INJ IV (06:17)
[2018-06-05] MEDS: LIDOCAINE 1% (MPF) 5 ML VIAL (07:38)
[2018-06-05] MEDS: FENTAnyl 50 MCG/ML VIAL (07:38)
[2018-06-05] MEDS: LINEZOLID 600 MG/D5W (PMX) 300 ML IVPB ×2 (08:21→20:58)
[2018-06-05] MEDS: LACTOBACILLUS RHAMNOSUS CAP PO ×2 (09:00→21:00)
[2018-06-05] MEDS ORDERED: MAGNESIUM SULFATE 1 GM/D5W 100 ML IVPB (10:30)
[2018-06-05] MEDS ORDERED: MAGNESIUM SULFATE 4 GM/100 ML 100 ML IVPB ×2 (10:30→11:00)
[2018-06-05] MEDS ORDERED: MAGNESIUM OXIDE 400 MG TAB PO (10:30)
[2018-06-05] MEDS ORDERED: MAGNESIUM SULFATE 2 GM/50 ML 50 ML IVPB ×2 (10:30→11:00)
[2018-06-05] MEDS ORDERED: POTASSIUM CHLORIDE 20 MEQ POWDER FOR ORAL SOLN PO ×2 (10:30)
[2018-06-05] MEDS: LORAZEPAM 1 MG TAB PO ×2 (10:49→18:57)
[2018-06-05] MEDS: MAGNESIUM SULFATE 1 GM/D5W 100 ML IVPB (11:48)
[2018-06-05] MEDS: ERTAPENEM SODIUM 1 GM in SOD CHLORIDE 0.9% 100 ML IVPB (14:57)
[2018-06-05] MEDS: POLYETHYLENE GLYCOL 17 GM PACKET PO (14:58)
[2018-06-05 17:59] LABS: IMMEDIATE SPIN CROSSMATCH 1 2
[2018-06-05] MEDS: SENNA TAB PO (20:57)
[2018-06-05] MEDS: DOCUSATE SODIUM 100 MG CAP PO (20:57)
[2018-06-06] MEDS: IPRATROPIUM (NEB) 0.5 MG/2.5 ML AMP NEB ×4 (01:09→13:00)
[2018-06-06] MEDS: ALBUTEROL 0.083% (NEB) 2.5 MG/3 ML AMP NEB ×4 (01:10→13:00)
[2018-06-06] MEDS: morphine 2 MG INJ IV ×3 (04:16→19:49)
[2018-06-06] MEDS: SOD CHLORIDE 0.9% 1,000 ML IV (04:24)
[2018-06-06 05:23] LABS: ALANINE AMINOTRANSFERASE 13 IU/L (13-69); ALBUMIN 1.9 g/dl (3.3-4.9); ALBUMIN/GLOBULIN RATIO 0.52; ALKALINE PHOSPHATASE 180 IU/L (42-121); ANION GAP 8 (5-13); ASPARTATE AMINO TRANSFERASE 15 IU/L (15-46); BILIRUBIN,INDIRECT 1.6 mg/dl (0-1.1); BILIRUBIN,TOTAL 2.3 mg/dl (0.2-1.3); BLOOD UREA NITROGEN 3 mg/dl (7-20); CALCIUM 7.2 mg/dl (8.4-10.2); CARBON DIOXIDE 19 mmol/L (21-31); CHLORIDE 107 mmol/L (97-110); CREATININE 0.48 mg/dl (0.44-1.00); Estimated GFR > 60 mL/min (>60); GLUCOSE 88 mg/dl (70-220); MAGNESIUM 1.5 mg/dl (1.7-2.5); POTASSIUM 3.2 mmol/L (3.5-5.1); SODIUM 134 mmol/L (135-144); TOTAL PROTEIN 5.5 g/dl (6.1-8.1)
[2018-06-06] MEDS: PANTOPRAZOLE 40 MG INJ IV (05:53)
[2018-06-06] MEDS: LACTOBACILLUS RHAMNOSUS CAP PO (09:00)
[2018-06-06] MEDS: LINEZOLID 600 MG/D5W (PMX) 300 ML IVPB ×2 (09:15→20:57)
[2018-06-06] MEDS: POTASSIUM CHLORIDE 20 MEQ POWDER FOR ORAL SOLN PO (09:16)
[2018-06-06] MEDS: LORAZEPAM 1 MG TAB PO ×2 (09:17→19:40)
[2018-06-06] MEDS: DOCUSATE SODIUM 100 MG CAP PO ×2 (09:17→20:58)
[2018-06-06] MEDS: SENNA TAB PO ×2 (09:17→20:57)
[2018-06-06 12:19] LABS: ADD MAN DIFF? NO
[2018-06-06 12:23] LABS: BASOPHIL # 0.1 10^3/ul (0.0-0.1); BASOPHILS % 0.5 % (0.0-2.0); EOSINOPHILS # 0.2 10^3/ul (0.0-0.5); EOSINOPHILS % 2.2 % (0.0-7.0); HEMATOCRIT 28.4 % (37.0-47.0); HEMOGLOBIN 9.7 g/dl (12.0-16.0); LYMPHOCYTES # 1.4 10^3/ul (0.8-2.9); LYMPHOCYTES % 13.1 % (15.0-51.0); MEAN CORPUSCULAR HEMOGLOBIN 29.4 pg (29.0-33.0); MEAN CORPUSCULAR HGB CONC 34.2 g/dl (32.0-37.0); MEAN CORPUSCULAR VOLUME 86.1 fl (82.0-101.0); MEAN PLATELET VOLUME 10.8 fl (7.4-10.4); MONOCYTE # 0.8 10^3/ul (0.3-0.9); MONOCYTES % 7.6 % (0.0-11.0); NEUTROPHIL # 7.9 10^3/ul (1.6-7.5); NEUTROPHILS % 71.9 % (39.0-77.0); PLATELET COUNT 245 10^3/UL (140-415); RED CELL DISTRIBUTION WIDTH 19.5 % (11.5-14.5)
[2018-06-06] MEDS ORDERED: ALBUTEROL/IPRATROPIUM (NEB) 3 ML AMP HHN (14:00)
[2018-06-06] MEDS: CASPOFUNGIN 70 MG in SOD CHLORIDE 0.9% 250 ML IVPB (14:40)
[2018-06-06] MEDS: PROMETHAZINE/CODEINE 5ML CUP PO (14:40)
[2018-06-07] MEDS: morphine 2 MG INJ IV ×4 (00:26→18:55)
[2018-06-07] MEDS: LORAZEPAM 1 MG TAB PO ×3 (03:47→22:17)
[2018-06-07 05:29] LABS: ADD MAN DIFF? NO
[2018-06-07 05:37] LABS: BASOPHIL # 0.1 10^3/ul (0.0-0.1); BASOPHILS % 0.7 % (0.0-2.0); EOSINOPHILS # 0.3 10^3/ul (0.0-0.5); EOSINOPHILS % 2.3 % (0.0-7.0); HEMATOCRIT 27.9 % (37.0-47.0); HEMOGLOBIN 9.7 g/dl (12.0-16.0); LYMPHOCYTES # 1.9 10^3/ul (0.8-2.9); MEAN CORPUSCULAR HEMOGLOBIN 29.7 pg (29.0-33.0); MEAN CORPUSCULAR HGB CONC 34.8 g/dl (32.0-37.0); MEAN CORPUSCULAR VOLUME 85.3 fl (82.0-101.0); MEAN PLATELET VOLUME 10.9 fl (7.4-10.4); MONOCYTES % 8.7 % (0.0-11.0); NEUTROPHIL # 7.7 10^3/ul (1.6-7.5); NEUTROPHILS % 68.6 % (39.0-77.0); PLATELET COUNT 254 10^3/UL (140-415); RED BLOOD COUNT 3.27 10^6/ul (4.20-5.40); RED CELL DISTRIBUTION WIDTH 19.3 % (11.5-14.5)
[2018-06-07 05:37] LABS: WHITE BLOOD COUNT 11.2 10^3/ul (4.8-10.8)
[2018-06-07] MEDS: PANTOPRAZOLE 40 MG INJ IV (06:02)
[2018-06-07 06:12] LABS: ALANINE AMINOTRANSFERASE 19 IU/L (13-69); ALBUMIN 1.7 g/dl (3.3-4.9); ALBUMIN/GLOBULIN RATIO 0.44; ALKALINE PHOSPHATASE 224 IU/L (42-121); ANION GAP 7 (5-13); ASPARTATE AMINO TRANSFERASE 25 IU/L (15-46); BILIRUBIN,INDIRECT 1.7 mg/dl (0-1.1); BILIRUBIN,TOTAL 3.2 mg/dl (0.2-1.3); BLOOD UREA NITROGEN 4 mg/dl (7-20); CALCIUM 7.5 mg/dl (8.4-10.2); CARBON DIOXIDE 24 mmol/L (21-31); CHLORIDE 104 mmol/L (97-110); CREATININE 0.43 mg/dl (0.44-1.00); Estimated GFR > 60 mL/min (>60); GLUCOSE 70 mg/dl (70-220); MAGNESIUM 1.5 mg/dl (1.7-2.5); POTASSIUM 3.4 mmol/L (3.5-5.1); SODIUM 135 mmol/L (135-144); TOTAL PROTEIN 5.5 g/dl (6.1-8.1)
[2018-06-07] MEDS: DOCUSATE SODIUM 100 MG CAP PO ×2 (08:44→21:02)
[2018-06-07] MEDS: LINEZOLID 600 MG/D5W (PMX) 300 ML IVPB ×2 (08:44→21:02)
[2018-06-07] MEDS: POTASSIUM CHLORIDE 20 MEQ POWDER FOR ORAL SOLN PO (08:44)
[2018-06-07] MEDS: SENNA TAB PO ×2 (08:44→21:02)
[2018-06-07] MEDS: MAGNESIUM SULFATE 1 GM/D5W 100 ML IVPB (12:35)
[2018-06-07] MEDS: CASPOFUNGIN 35 MG in SOD CHLORIDE 0.9% 250 ML IVPB (14:11)
[2018-06-07] MEDS: MAGNESIUM SULFATE 2 GM/50 ML 50 ML IVPB (17:22)
[2018-06-08] MEDS: morphine 2 MG INJ IV ×4 (03:30→20:05)
[2018-06-08] MEDS: PANTOPRAZOLE 40 MG INJ IV (05:28)
[2018-06-08 05:47] LABS: ADD MAN DIFF? NO; BASOPHIL # 0.1 10^3/ul (0.0-0.1); EOSINOPHILS # 0.2 10^3/ul (0.0-0.5); EOSINOPHILS % 1.9 % (0.0-7.0); HEMATOCRIT 29.5 % (37.0-47.0); HEMOGLOBIN 10.1 g/dl (12.0-16.0); LYMPHOCYTES # 1.8 10^3/ul (0.8-2.9); LYMPHOCYTES % 19.9 % (15.0-51.0); MEAN CORPUSCULAR HEMOGLOBIN 29.5 pg (29.0-33.0); MEAN CORPUSCULAR HGB CONC 34.2 g/dl (32.0-37.0); MEAN CORPUSCULAR VOLUME 86.3 fl (82.0-101.0); MEAN PLATELET VOLUME 10.2 fl (7.4-10.4); MONOCYTE # 0.6 10^3/ul (0.3-0.9); MONOCYTES % 7.2 % (0.0-11.0); NEUTROPHILS % 67.2 % (39.0-77.0); PLATELET COUNT 257 10^3/UL (140-415); RED BLOOD COUNT 3.42 10^6/ul (4.20-5.40); RED CELL DISTRIBUTION WIDTH 19.5 % (11.5-14.5)
[2018-06-08 05:47] LABS: WHITE BLOOD COUNT 8.9 10^3/ul (4.8-10.8)
[2018-06-08 06:48] LABS: ANION GAP 8 (5-13); BLOOD UREA NITROGEN 2 mg/dl (7-20); CALCIUM 7.5 mg/dl (8.4-10.2); CARBON DIOXIDE 23 mmol/L (21-31); CHLORIDE 105 mmol/L (97-110); CREATININE 0.44 mg/dl (0.44-1.00); Estimated GFR > 60 mL/min (>60); GLUCOSE 84 mg/dl (70-220); PHOSPHORUS 2.8 mg/dl (2.5-4.9); POTASSIUM 3.5 mmol/L (3.5-5.1); SODIUM 136 mmol/L (135-144)
[2018-06-08] MEDS: LINEZOLID 600 MG/D5W (PMX) 300 ML IVPB ×2 (08:31→21:25)
[2018-06-08] MEDS: DOCUSATE SODIUM 100 MG CAP PO ×2 (08:36→21:25)
[2018-06-08] MEDS: SENNA TAB PO ×2 (08:36→21:25)
[2018-06-08] MEDS: LORAZEPAM 1 MG TAB PO ×2 (12:10→21:25)
[2018-06-08] MEDS: CASPOFUNGIN 35 MG in SOD CHLORIDE 0.9% 250 ML IVPB (14:13)
[2018-06-09] MEDS: morphine 2 MG INJ IV ×5 (02:51→21:06)
[2018-06-09 05:10] LABS: ADD MAN DIFF? NO
[2018-06-09 05:23] LABS: WHITE BLOOD COUNT 8.5 10^3/ul (4.8-10.8)
[2018-06-09 05:23] LABS: BASOPHIL # 0.1 10^3/ul (0.0-0.1); BASOPHILS % 1.2 % (0.0-2.0); EOSINOPHILS # 0.1 10^3/ul (0.0-0.5); EOSINOPHILS % 1.4 % (0.0-7.0); HEMATOCRIT 26.7 % (37.0-47.0); HEMOGLOBIN 9.1 g/dl (12.0-16.0); LYMPHOCYTES # 1.8 10^3/ul (0.8-2.9); LYMPHOCYTES % 21.2 % (15.0-51.0); MEAN CORPUSCULAR HEMOGLOBIN 29.3 pg (29.0-33.0); MEAN CORPUSCULAR HGB CONC 34.1 g/dl (32.0-37.0); MEAN CORPUSCULAR VOLUME 85.9 fl (82.0-101.0); MEAN PLATELET VOLUME 10.1 fl (7.4-10.4); MONOCYTE # 0.5 10^3/ul (0.3-0.9); MONOCYTES % 5.8 % (0.0-11.0); NEUTROPHIL # 5.8 10^3/ul (1.6-7.5); NEUTROPHILS % 68.4 % (39.0-77.0); PLATELET COUNT 250 10^3/UL (140-415); RED BLOOD COUNT 3.11 10^6/ul (4.20-5.40); RED CELL DISTRIBUTION WIDTH 19.3 % (11.5-14.5)
[2018-06-09 05:48] LABS: ANION GAP 7 (5-13); BLOOD UREA NITROGEN 3 mg/dl (7-20); CALCIUM 7.5 mg/dl (8.4-10.2); CARBON DIOXIDE 24 mmol/L (21-31); CHLORIDE 106 mmol/L (97-110); Estimated GFR > 60 mL/min (>60); GLUCOSE 82 mg/dl (70-220); POTASSIUM 3.4 mmol/L (3.5-5.1); SODIUM 137 mmol/L (135-144)
[2018-06-09] MEDS: PANTOPRAZOLE 40 MG INJ IV (07:08)
[2018-06-09] MEDS: SENNA TAB PO ×2 (08:28→21:00)
[2018-06-09] MEDS: DOCUSATE SODIUM 100 MG CAP PO ×2 (08:28→21:00)
[2018-06-09] MEDS: LINEZOLID 600 MG/D5W (PMX) 300 ML IVPB ×2 (08:28→21:06)
[2018-06-09] MEDS: LORAZEPAM 1 MG TAB PO (13:54)
[2018-06-09] MEDS: CASPOFUNGIN 35 MG in SOD CHLORIDE 0.9% 250 ML IVPB (13:54)
[2018-06-09] MEDS: POTASSIUM CHLORIDE (SR) 20 MEQ TAB PO (17:48)
[2018-06-10] MEDS: morphine 2 MG INJ IV ×6 (00:13→21:57)
[2018-06-10 05:33] LABS: ADD MAN DIFF? NO
[2018-06-10 05:57] LABS: BASOPHIL # 0.1 10^3/ul (0.0-0.1); BASOPHILS % 1.1 % (0.0-2.0); EOSINOPHILS # 0.1 10^3/ul (0.0-0.5); EOSINOPHILS % 0.9 % (0.0-7.0); HEMATOCRIT 27.2 % (37.0-47.0); HEMOGLOBIN 9.4 g/dl (12.0-16.0); LYMPHOCYTES # 1.8 10^3/ul (0.8-2.9); LYMPHOCYTES % 17.6 % (15.0-51.0); MEAN CORPUSCULAR HEMOGLOBIN 29.8 pg (29.0-33.0); MEAN CORPUSCULAR HGB CONC 34.6 g/dl (32.0-37.0); MEAN CORPUSCULAR VOLUME 86.3 fl (82.0-101.0); MONOCYTE # 0.4 10^3/ul (0.3-0.9); MONOCYTES % 4.4 % (0.0-11.0); NEUTROPHIL # 7.5 10^3/ul (1.6-7.5); NEUTROPHILS % 74.7 % (39.0-77.0); PLATELET COUNT 271 10^3/UL (140-415); RED BLOOD COUNT 3.15 10^6/ul (4.20-5.40); RED CELL DISTRIBUTION WIDTH 19.2 % (11.5-14.5)
[2018-06-10] MEDS: PANTOPRAZOLE 40 MG INJ IV (06:00)
[2018-06-10 06:03] LABS: ANION GAP 6 (5-13); BLOOD UREA NITROGEN 4 mg/dl (7-20); CALCIUM 7.9 mg/dl (8.4-10.2); CARBON DIOXIDE 26 mmol/L (21-31); CHLORIDE 101 mmol/L (97-110); Estimated GFR > 60 mL/min (>60); GLUCOSE 81 mg/dl (70-220); SODIUM 133 mmol/L (135-144)
[2018-06-10] MEDS: LINEZOLID 600 MG/D5W (PMX) 300 ML IVPB (08:50)
[2018-06-10] MEDS: DOCUSATE SODIUM 100 MG CAP PO ×2 (08:53→21:56)
[2018-06-10] MEDS: SENNA TAB PO ×2 (08:53→21:56)
[2018-06-10] MEDS: LORAZEPAM 1 MG TAB PO (11:02)
[2018-06-10] MEDS: CASPOFUNGIN 35 MG in SOD CHLORIDE 0.9% 250 ML IVPB (14:25)
[2018-06-10] MEDS: ZYVOX 600 MG TAB PO (21:56)
[2018-06-11] MEDS: morphine 2 MG INJ IV ×4 (04:04→19:39)
[2018-06-11] MEDS: LORAZEPAM 1 MG TAB PO ×2 (05:30→15:37)
[2018-06-11] MEDS: PANTOPRAZOLE 40 MG INJ IV (05:31)
[2018-06-11] MEDS: SENNA TAB PO (08:45)
[2018-06-11] MEDS: DOCUSATE SODIUM 100 MG CAP PO (08:45)
[2018-06-11] MEDS: ZYVOX 600 MG TAB PO (08:45)
[2018-06-11] MEDS: IOHEXOL 14.3 MG(I)/ML (ADULT) BTL PO (15:28)
[2018-06-11 16:32] LABS: ALANINE AMINOTRANSFERASE 29 IU/L (13-69); ALBUMIN 2.3 g/dl (3.3-4.9); ALKALINE PHOSPHATASE 910 IU/L (42-121); ASPARTATE AMINO TRANSFERASE 84 IU/L (15-46); BILIRUBIN,INDIRECT 1.5 mg/dl (0-1.1); BILIRUBIN,TOTAL 7.3 mg/dl (0.2-1.3); TOTAL PROTEIN 6.2 g/dl (6.1-8.1)
[2018-06-11] MEDS: IOHEXOL 300MG/ML 150 ML BTL (18:43)
[2018-06-11] MEDS: SOD CHLORIDE 0.9% 100 ML (18:43)
[2018-06-12] MEDS: morphine 2 MG INJ IV ×6 (00:13→20:42)
[2018-06-12] MEDS: ZYVOX 600 MG TAB PO ×3 (00:13→20:29)
[2018-06-12] MEDS: DOCUSATE SODIUM 100 MG CAP PO ×3 (00:13→20:29)
[2018-06-12] MEDS: SENNA TAB PO ×3 (00:14→20:29)
[2018-06-12] MEDS: PANTOPRAZOLE 40 MG INJ IV (05:14)
[2018-06-12 05:48] LABS: ADD MAN DIFF? NO
[2018-06-12] MEDS: LORAZEPAM 1 MG TAB PO ×2 (07:13→16:39)
[2018-06-12 10:10] LABS: BASOPHIL # 0.1 10^3/ul (0.0-0.1); BASOPHILS % 1.1 % (0.0-2.0); EOSINOPHILS # 0.1 10^3/ul (0.0-0.5); EOSINOPHILS % 0.9 % (0.0-7.0); HEMATOCRIT 25.1 % (37.0-47.0); HEMOGLOBIN 8.5 g/dl (12.0-16.0); LYMPHOCYTES # 1.7 10^3/ul (0.8-2.9); LYMPHOCYTES % 21.4 % (15.0-51.0); MEAN CORPUSCULAR HEMOGLOBIN 29.8 pg (29.0-33.0); MEAN CORPUSCULAR HGB CONC 33.9 g/dl (32.0-37.0); MEAN CORPUSCULAR VOLUME 88.1 fl (82.0-101.0); MEAN PLATELET VOLUME 9.9 fl (7.4-10.4); MONOCYTE # 0.3 10^3/ul (0.3-0.9); MONOCYTES % 3.4 % (0.0-11.0); NEUTROPHIL # 5.7 10^3/ul (1.6-7.5); NEUTROPHILS % 72.6 % (39.0-77.0); NUCLEATED RED BLOOD CELLS% 0.3 /100WBC (0.0-0.0); PLATELET COUNT 215 10^3/UL (140-415); RED BLOOD COUNT 2.85 10^6/ul (4.20-5.40); RED CELL DISTRIBUTION WIDTH 20.2 % (11.5-14.5)
[2018-06-12 10:10] LABS: WHITE BLOOD COUNT 7.9 10^3/ul (4.8-10.8)
[2018-06-13] MEDS: morphine 2 MG INJ IV ×6 (01:21→23:29)
[2018-06-13 05:49] LABS: ADD MAN DIFF? NO
[2018-06-13 05:55] LABS: BASOPHIL # 0.2 10^3/ul (0.0-0.1); BASOPHILS % 2.1 % (0.0-2.0); EOSINOPHILS # 0.1 10^3/ul (0.0-0.5); HEMATOCRIT 24.5 % (37.0-47.0); HEMOGLOBIN 8.6 g/dl (12.0-16.0); LYMPHOCYTES # 1.6 10^3/ul (0.8-2.9); LYMPHOCYTES % 17.2 % (15.0-51.0); MEAN CORPUSCULAR HEMOGLOBIN 29.9 pg (29.0-33.0); MEAN CORPUSCULAR HGB CONC 35.1 g/dl (32.0-37.0); MEAN CORPUSCULAR VOLUME 85.1 fl (82.0-101.0); MEAN PLATELET VOLUME 9.8 fl (7.4-10.4); MONOCYTE # 0.3 10^3/ul (0.3-0.9); MONOCYTES % 3.3 % (0.0-11.0); NEUTROPHIL # 6.8 10^3/ul (1.6-7.5); NEUTROPHILS % 75.6 % (39.0-77.0); PLATELET COUNT 186 10^3/UL (140-415); RED BLOOD COUNT 2.88 10^6/ul (4.20-5.40); RED CELL DISTRIBUTION WIDTH 20.2 % (11.5-14.5)
[2018-06-13 06:11] LABS: ALANINE AMINOTRANSFERASE 43 IU/L (13-69); ALBUMIN 2.2 g/dl (3.3-4.9); ALBUMIN/GLOBULIN RATIO 0.57; ALKALINE PHOSPHATASE 1064 IU/L (42-121); ANION GAP 10 (5-13); ASPARTATE AMINO TRANSFERASE 118 IU/L (15-46); BILIRUBIN,INDIRECT 1.9 mg/dl (0-1.1); BILIRUBIN,TOTAL 10.3 mg/dl (0.2-1.3); BLOOD UREA NITROGEN 5 mg/dl (7-20); CALCIUM 8.3 mg/dl (8.4-10.2); CARBON DIOXIDE 24 mmol/L (21-31); CHLORIDE 100 mmol/L (97-110); CREATININE 0.43 mg/dl (0.44-1.00); Estimated GFR > 60 mL/min (>60); GLUCOSE 90 mg/dl (70-220); SODIUM 134 mmol/L (135-144)
[2018-06-13] MEDS: PANTOPRAZOLE 40 MG INJ IV (06:14)
[2018-06-13] MEDS: DOCUSATE SODIUM 100 MG CAP PO ×2 (09:34→20:46)
[2018-06-13] MEDS: SENNA TAB PO ×2 (09:34→20:46)
[2018-06-13] MEDS: ZYVOX 600 MG TAB PO ×2 (09:34→20:46)
[2018-06-13] MEDS: LORAZEPAM 1 MG TAB PO ×2 (11:25→21:11)
[2018-06-13] MEDS ORDERED: MIDAZOLAM 1 MG/ML 2 ML INJ (12:36)
[2018-06-13] MEDS ORDERED: FENTAnyl 50 MCG/ML VIAL (12:36)
[2018-06-13] MEDS: HYDROCODONE/APAP (10/325) TAB PO (19:42)
[2018-06-14] MEDS: morphine 2 MG INJ IV ×6 (02:31→23:31)
[2018-06-14] MEDS: HYDROCODONE/APAP (10/325) TAB PO ×2 (04:42→08:52)
[2018-06-14] MEDS: PANTOPRAZOLE 40 MG INJ IV (05:16)
[2018-06-14 06:33] LABS: WHITE BLOOD COUNT 29.6 10^3/ul (4.8-10.8)
[2018-06-14 06:33] LABS: ABNORMAL IP MESSAGE 1; HEMATOCRIT 24.6 % (37.0-47.0); HEMOGLOBIN 8.3 g/dl (12.0-16.0); MEAN CORPUSCULAR HEMOGLOBIN 29.5 pg (29.0-33.0); MEAN CORPUSCULAR HGB CONC 33.7 g/dl (32.0-37.0); MEAN CORPUSCULAR VOLUME 87.5 fl (82.0-101.0); MEAN PLATELET VOLUME 10.5 fl (7.4-10.4); PLATELET COUNT 176 10^3/UL (140-415); RED BLOOD COUNT 2.81 10^6/ul (4.20-5.40)
[2018-06-14 06:38] LABS: ADD MAN DIFF? YES; POSITIVE DIFF @See below
[2018-06-14 07:28] LABS: ALANINE AMINOTRANSFERASE 34 IU/L (13-69); ALBUMIN 2.4 g/dl (3.3-4.9); ALBUMIN/GLOBULIN RATIO 0.55; ALKALINE PHOSPHATASE 941 IU/L (42-121); ANION GAP 10 (5-13); ASPARTATE AMINO TRANSFERASE 48 IU/L (15-46); BILIRUBIN,INDIRECT 3.8 mg/dl (0-1.1); BILIRUBIN,TOTAL 6.5 mg/dl (0.2-1.3); BLOOD UREA NITROGEN 9 mg/dl (7-20); CALCIUM 8.1 mg/dl (8.4-10.2); CARBON DIOXIDE 23 mmol/L (21-31); CHLORIDE 98 mmol/L (97-110); CREATININE 0.43 mg/dl (0.44-1.00); Estimated GFR > 60 mL/min (>60); GLUCOSE 94 mg/dl (70-220); POTASSIUM 4.1 mmol/L (3.5-5.1); SODIUM 131 mmol/L (135-144); TOTAL PROTEIN 6.7 g/dl (6.1-8.1)
[2018-06-14 07:57] LABS: ANISOCYTOSIS 3+ (0-0); BAND NEUTROPHILS #M 2.3 10^3/ul (0.0-0.6); BAND NEUTROPHILS % (M) 8 % (0-4); BASOPHIL #M 0.2 10^3/ul (0.0-0.0); BASOPHILS % (M) 1 % (0-2); HYPOCHROMASIA 1+ (0-0); LYMPHOCYTES #M 0.8 10^3/ul (0.8-2.9); LYMPHOCYTES % (M) 3 % (15-51); MONOCYTE #M 0.5 10^3/ul (0.3-0.9); MONOCYTES % (M) 2 % (0-11); PLATELET ESTIMATE NORMAL; POIKILOCYTOSIS 1+ (0-0); POLYCHROMASIA 1+ (0-0); SEG NEUT #M 26.1 10^3/ul (1.6-7.5); SEGMENTED NEUTROPHILS (M) % 86 % (39-77); SMUDGE%M 9 % (0-0); TARGET CELLS 1+ (0-0)
[2018-06-14] MEDS: DOCUSATE SODIUM 100 MG CAP PO ×2 (08:52→19:49)
[2018-06-14] MEDS: SENNA TAB PO ×2 (08:52→19:49)
[2018-06-14] MEDS: ZYVOX 600 MG TAB PO ×2 (08:52→19:49)
[2018-06-14 11:49] LABS: ABNORMAL IP MESSAGE 1; HEMATOCRIT 24.7 % (37.0-47.0); HEMOGLOBIN 8.5 g/dl (12.0-16.0); MEAN CORPUSCULAR HEMOGLOBIN 30.5 pg (29.0-33.0); MEAN CORPUSCULAR HGB CONC 34.4 g/dl (32.0-37.0); MEAN CORPUSCULAR VOLUME 88.5 fl (82.0-101.0); PLATELET COUNT 162 10^3/UL (140-415); RED BLOOD COUNT 2.79 10^6/ul (4.20-5.40); RED CELL DISTRIBUTION WIDTH 21.1 % (11.5-14.5)
[2018-06-14 11:49] LABS: WHITE BLOOD COUNT 28.7 10^3/ul (4.8-10.8)
[2018-06-14 11:51] LABS: POSITIVE DIFF @See below
[2018-06-14 11:52] LABS: ADD MAN DIFF? YES
[2018-06-14 12:34] LABS: ANISOCYTOSIS 2+ (0-0); BAND NEUTROPHILS #M 1.4 10^3/ul (0.0-0.6); BAND NEUTROPHILS % (M) 5 % (0-4); BASOPHIL #M 0.2 10^3/ul (0.0-0.0); BASOPHILS % (M) 1 % (0-2); EOSINOPHILS % (M) 2 % (0-7); HYPOCHROMASIA 3+ (0-0); LYMPHOCYTES #M 7.4 10^3/ul (0.8-2.9); LYMPHOCYTES % (M) 26 % (15-51); MONOCYTE #M 0.2 10^3/ul (0.3-0.9); MONOCYTES % (M) 1 % (0-11); PLATELET ESTIMATE NORMAL; POIKILOCYTOSIS 1+ (0-0); POLYCHROMASIA 3+ (0-0); REACTIVE LYMPHOCYTES #M 0.8 10^3/ul (0.0-0.0); REACTIVE LYMPHOCYTES% (M) 3 % (0-0); SEG NEUT #M 18.2 10^3/ul (1.6-7.5); SEGMENTED NEUTROPHILS (M) % 62 % (39-77); SMUDGE%M 14 % (0-0); TARGET CELLS 1+ (0-0)
[2018-06-14] MEDS: LORAZEPAM 1 MG TAB PO ×2 (13:22→21:08)
[2018-06-14] MEDS: MEROPENEM 1 GM/50ML(PMX) 50 ML IVPB (14:03)
[2018-06-14] MEDS: ONDANSETRON 4 MG INJ IV (19:49)
[2018-06-14] MEDS: ACETAMINOPHEN 650MG/20.3ML CUP PO (21:08)
[2018-06-15] MEDS: MEROPENEM 1 GM/50ML(PMX) 50 ML IVPB ×3 (01:55→20:45)
[2018-06-15] MEDS: morphine 2 MG INJ IV ×6 (03:57→23:06)
[2018-06-15] MEDS: PANTOPRAZOLE 40 MG INJ IV (05:20)
[2018-06-15 06:00] LABS: ABNORMAL IP MESSAGE 1; HEMATOCRIT 20.9 % (37.0-47.0); HEMOGLOBIN 7.2 g/dl (12.0-16.0); MEAN CORPUSCULAR HEMOGLOBIN 30.5 pg (29.0-33.0); MEAN CORPUSCULAR HGB CONC 34.4 g/dl (32.0-37.0); MEAN CORPUSCULAR VOLUME 88.6 fl (82.0-101.0); MEAN PLATELET VOLUME 9.9 fl (7.4-10.4); PLATELET COUNT 125 10^3/UL (140-415); RED BLOOD COUNT 2.36 10^6/ul (4.20-5.40); RED CELL DISTRIBUTION WIDTH 21.4 % (11.5-14.5)
[2018-06-15 06:00] LABS: WHITE BLOOD COUNT 27.8 10^3/ul (4.8-10.8)
[2018-06-15] MEDS: LORAZEPAM 1 MG TAB PO ×2 (06:00→20:46)
[2018-06-15 06:27] LABS: ADD MAN DIFF? YES; POSITIVE DIFF @See below
[2018-06-15 06:38] LABS: ALANINE AMINOTRANSFERASE 32 IU/L (13-69); ALBUMIN 2.2 g/dl (3.3-4.9); ALKALINE PHOSPHATASE 586 IU/L (42-121); ASPARTATE AMINO TRANSFERASE 19 IU/L (15-46); BILIRUBIN,INDIRECT 2.5 mg/dl (0-1.1); BILIRUBIN,TOTAL 4.6 mg/dl (0.2-1.3); TOTAL PROTEIN 5.8 g/dl (6.1-8.1)
[2018-06-15 06:40] LABS: ANION GAP 11 (5-13); BLOOD UREA NITROGEN 13 mg/dl (7-20); CALCIUM 8.2 mg/dl (8.4-10.2); CARBON DIOXIDE 25 mmol/L (21-31); CHLORIDE 98 mmol/L (97-110); CREATININE 0.48 mg/dl (0.44-1.00); Estimated GFR > 60 mL/min (>60); GLUCOSE 89 mg/dl (70-220); POTASSIUM 3.9 mmol/L (3.5-5.1); SODIUM 134 mmol/L (135-144)
[2018-06-15 07:57] LABS: ANISOCYTOSIS 1+ (0-0); BASOPHIL #M 0.2 10^3/ul (0.0-0.0); BASOPHILS % (M) 1 % (0-2); EOSINOPHILS % (M) 1 % (0-7); HYPOCHROMASIA 1+ (0-0); LYMPHOCYTES #M 1.1 10^3/ul (0.8-2.9); LYMPHOCYTES % (M) 4 % (15-51); MONOCYTE #M 0.2 10^3/ul (0.3-0.9); MONOCYTES % (M) 1 % (0-11); PLATELET ESTIMATE DECREASED; SEGMENTED NEUTROPHILS (M) % 94 % (39-77); SMUDGE%M 1 % (0-0); TARGET CELLS 1+ (0-0)
[2018-06-15] MEDS: SENNA TAB PO ×2 (08:49→20:47)
[2018-06-15] MEDS: DOCUSATE SODIUM 100 MG CAP PO ×2 (08:49→20:46)
[2018-06-15] MEDS: ZYVOX 600 MG TAB PO ×2 (08:49→20:46)
[2018-06-15] MEDS ORDERED: IOHEXOL 14.3 MG(I)/ML (ADULT) BTL PO (16:00)
[2018-06-15] MEDS ORDERED: SOD CHLORIDE 0.9% 100 ML (22:34)
[2018-06-15] MEDS ORDERED: IOHEXOL 300MG/ML 150 ML BTL (22:34)
[2018-06-16] MEDS: morphine 2 MG INJ IV ×6 (03:17→21:57)
[2018-06-16 06:15] LABS: ABNORMAL IP MESSAGE 1; ADD MAN DIFF? NO; BASOPHILS % 0.2 % (0.0-2.0); EOSINOPHILS # 0.1 10^3/ul (0.0-0.5); EOSINOPHILS % 0.3 % (0.0-7.0); HEMATOCRIT 18.4 % (37.0-47.0); LYMPHOCYTES # 1.4 10^3/ul (0.8-2.9); LYMPHOCYTES % 7.4 % (15.0-51.0); MEAN CORPUSCULAR HEMOGLOBIN 30.9 pg (29.0-33.0); MEAN CORPUSCULAR HGB CONC 34.2 g/dl (32.0-37.0); MEAN CORPUSCULAR VOLUME 90.2 fl (82.0-101.0); MEAN PLATELET VOLUME 11.5 fl (7.4-10.4); MONOCYTE # 0.4 10^3/ul (0.3-0.9); MONOCYTES % 2.3 % (0.0-11.0); NEUTROPHIL # 16.6 10^3/ul (1.6-7.5); PLATELET COUNT 91 10^3/UL (140-415); RED BLOOD COUNT 2.04 10^6/ul (4.20-5.40)
[2018-06-16 06:15] LABS: WHITE BLOOD COUNT 18.7 10^3/ul (4.8-10.8)
[2018-06-16 06:19] LABS: POSITIVE DIFF @See below
[2018-06-16] MEDS: PANTOPRAZOLE 40 MG INJ IV (06:19)
[2018-06-16 06:21] LABS: HEMOGLOBIN 6.3 g/dl (12.0-16.0)
[2018-06-16 06:36] LABS: ALANINE AMINOTRANSFERASE 22 IU/L (13-69); ALBUMIN 2.3 g/dl (3.3-4.9); ALBUMIN/GLOBULIN RATIO 0.63; ALKALINE PHOSPHATASE 455 IU/L (42-121); ANION GAP 9 (5-13); ASPARTATE AMINO TRANSFERASE 21 IU/L (15-46); BILIRUBIN,INDIRECT 1.9 mg/dl (0-1.1); BILIRUBIN,TOTAL 3.4 mg/dl (0.2-1.3); BLOOD UREA NITROGEN 11 mg/dl (7-20); CALCIUM 7.9 mg/dl (8.4-10.2); CARBON DIOXIDE 27 mmol/L (21-31); CHLORIDE 95 mmol/L (97-110); CREATININE 0.42 mg/dl (0.44-1.00); Estimated GFR > 60 mL/min (>60); GLUCOSE 90 mg/dl (70-220); POTASSIUM 3.7 mmol/L (3.5-5.1); SODIUM 131 mmol/L (135-144); TOTAL PROTEIN 5.9 g/dl (6.1-8.1)
[2018-06-16] MEDS: MEROPENEM 1 GM/50ML(PMX) 50 ML IVPB ×2 (08:44→20:43)
[2018-06-16] MEDS: LORAZEPAM 1 MG TAB PO ×2 (08:44→22:03)
[2018-06-16] MEDS: SENNA TAB PO ×2 (08:45→20:43)
[2018-06-16] MEDS: ZYVOX 600 MG TAB PO (08:45)
[2018-06-16] MEDS: DOCUSATE SODIUM 100 MG CAP PO ×2 (08:45→20:43)
[2018-06-16] MEDS: DAPTOMYCIN 385 MG in SOD CHLORIDE 0.9% 100 ML IVPB (11:21)
[2018-06-16 15:06] LABS: IMMEDIATE SPIN CROSSMATCH 1 1
[2018-06-16 18:45] LABS: ADD MAN DIFF? NO
[2018-06-16 18:49] LABS: ABNORMAL IP MESSAGE 1; BASOPHIL # 0.1 10^3/ul (0.0-0.1); BASOPHILS % 0.5 % (0.0-2.0); EOSINOPHILS # 0.1 10^3/ul (0.0-0.5); EOSINOPHILS % 0.4 % (0.0-7.0); HEMATOCRIT 24.7 % (37.0-47.0); HEMOGLOBIN 8.3 g/dl (12.0-16.0); LYMPHOCYTES # 1.6 10^3/ul (0.8-2.9); LYMPHOCYTES % 7.8 % (15.0-51.0); MEAN CORPUSCULAR HEMOGLOBIN 29.7 pg (29.0-33.0); MEAN CORPUSCULAR HGB CONC 33.6 g/dl (32.0-37.0); MEAN CORPUSCULAR VOLUME 88.5 fl (82.0-101.0); MEAN PLATELET VOLUME 11.2 fl (7.4-10.4); MONOCYTE # 0.4 10^3/ul (0.3-0.9); MONOCYTES % 2.1 % (0.0-11.0); NEUTROPHIL # 18.1 10^3/ul (1.6-7.5); NEUTROPHILS % 88.5 % (39.0-77.0); PLATELET COUNT 85 10^3/UL (140-415); RED BLOOD COUNT 2.79 10^6/ul (4.20-5.40); RED CELL DISTRIBUTION WIDTH 19.4 % (11.5-14.5)
[2018-06-16 18:49] LABS: WHITE BLOOD COUNT 20.5 10^3/ul (4.8-10.8)
[2018-06-16 18:55] LABS: POSITIVE DIFF @See below
== END 2018-06-16 23:05 | disposition home health service (06) | DRG 871 ==
LOC: 6WM 06-07 10:37 → 5EC 06-13 11:30 → E/R 00:57 → ICU 03:42
PROC: 0F9130Z Drainage of Right Lobe Liver with Drainage Device, Percutaneous Approach (ICD-10-PCS; principal; 2018-06-13 12:12)
PROC: 0F2BX0Z Change Drainage Device in Hepatobiliary Duct, External Approach (ICD-10-PCS; 2018-06-13 12:12)
PROC: 30233N1 Transfusion of Nonautologous Red Blood Cells into Peripheral Vein, Percutaneous Approach (ICD-10-PCS; 2018-06-13 12:12)
DX: A41.9 Sepsis, unspecified organism (principal); R65.21 Severe sepsis with septic shock; K75.0 Abscess of liver; B37.49 Other urogenital candidiasis; C22.1 Intrahepatic bile duct carcinoma; C78.89 Secondary malignant neoplasm of other digestive organs; E87.2 Acidosis; J90 Pleural effusion, not elsewhere classified; T85.590A Other mechanical complication of bile duct prosthesis, initial encounter; D63.0 Anemia in neoplastic disease; D64.81 Anemia due to antineoplastic chemotherapy; F41.9 Anxiety disorder, unspecified; K21.9 Gastro-esophageal reflux disease without esophagitis; K59.00 Constipation, unspecified; Z90.49 Acquired absence of other specified parts of digestive tract
CPT/HCPCS: 36415; 36430; 36600; 71045; 74160; 74177; 74305; 75989; 76604; 77012; 80048; 80053; 80076; 80202; 81001; 81003; 82550; 82553; 82728; 82803; 83036; 83540; 83605; 83690; 83735; 84100; 84443; 84484; 84703; 85025; 85610; 85730; 86850; 86900; 86901; 86920; 87040; 87045; 87070; 87081; 87086; 87102; 87116; 93005; 93970; 94640; 94664; 96365; 96375; 97110; 97116; 97162; 97530; 99291-25

== ENCOUNTER 2018-07-06 14:00 | Observation (INO) | payer BC ==
[2018-07-06 14:57] LABS: ADD MAN DIFF? NO
[2018-07-06 14:58] LABS: WHITE BLOOD COUNT 10.1 10^3/ul (4.8-10.8)
[2018-07-06 14:58] LABS: BASOPHIL # 0.1 10^3/ul (0.0-0.1); BASOPHILS % 0.9 % (0.0-2.0); EOSINOPHILS # 0.3 10^3/ul (0.0-0.5); EOSINOPHILS % 3.4 % (0.0-7.0); HEMATOCRIT 30.4 % (37.0-47.0); HEMOGLOBIN 9.7 g/dl (12.0-16.0); LYMPHOCYTES % 20.1 % (15.0-51.0); MEAN CORPUSCULAR HEMOGLOBIN 30.3 pg (29.0-33.0); MEAN CORPUSCULAR HGB CONC 31.9 g/dl (32.0-37.0); MEAN PLATELET VOLUME 9.6 fl (7.4-10.4); MONOCYTE # 0.5 10^3/ul (0.3-0.9); MONOCYTES % 5.3 % (0.0-11.0); NEUTROPHILS % 69.8 % (39.0-77.0); PLATELET COUNT 249 10^3/UL (140-415); RED CELL DISTRIBUTION WIDTH 18.6 % (11.5-14.5)
[2018-07-06] MEDS: HYDROmorphONE 1 MG/ML SYG IV (15:00)
[2018-07-06 15:40] LABS: ALANINE AMINOTRANSFERASE 11 IU/L (13-69); ALBUMIN 3.4 g/dl (3.3-4.9); ALBUMIN/GLOBULIN RATIO 0.61; ALKALINE PHOSPHATASE 545 IU/L (42-121); ANION GAP 12 (5-13); ASPARTATE AMINO TRANSFERASE 28 IU/L (15-46); BILIRUBIN,INDIRECT 0.6 mg/dl (0-1.1); BILIRUBIN,TOTAL 0.6 mg/dl (0.2-1.3); BLOOD UREA NITROGEN 11 mg/dl (7-20); CALCIUM 8.9 mg/dl (8.4-10.2); CARBON DIOXIDE 25 mmol/L (21-31); CHLORIDE 100 mmol/L (97-110); CREATININE 0.56 mg/dl (0.44-1.00); Estimated GFR > 60 mL/min (>60); GLUCOSE 145 mg/dl (70-220); LIPASE 12 U/L (23-300); POTASSIUM 3.5 mmol/L (3.5-5.1); SODIUM 137 mmol/L (135-144); TOTAL PROTEIN 8.9 g/dl (6.1-8.1)
[2018-07-06] MEDS: HYDROmorphONE 0.5 MG/0.5 ML SYG IV (17:59)
[2018-07-06] MEDS ORDERED: ALBUTEROL 0.5% (NEB) 2.5 MG/0.5 ML AMP NEB (18:46)
[2018-07-06] MEDS ORDERED: ONDANSETRON 4 MG INJ IV ×2 (19:00→19:30)
[2018-07-06] MEDS ORDERED: ACETAMINOPHEN 325 MG TAB PO ×2 (19:00→19:30)
[2018-07-06] MEDS ORDERED: DOCUSATE SODIUM 100 MG CAP PO (19:30)
[2018-07-06] MEDS ORDERED: HYDROCODONE/APAP (5/325) TAB PO (19:30)
[2018-07-06] MEDS ORDERED: ZOLPIDEM 5 MG TAB PO (19:30)
[2018-07-06] MEDS ORDERED: NACL 0.9% 3 ML SYG IV (19:30)
[2018-07-06] MEDS ORDERED: morphine 2 MG INJ IV (19:30)
[2018-07-06] MEDS: LORAZEPAM 4 MG/ML VIAL IV (21:11)
[2018-07-06] MEDS: SOD CHLORIDE 0.9% 1,000 ML IV (21:13)
[2018-07-06] MEDS: morphine 4 MG/ML VIAL IV (23:42)
[2018-07-07] MEDS: morphine 4 MG/ML VIAL IV (04:18)
[2018-07-07] MEDS: SOD CHLORIDE 0.9% 1,000 ML IV ×3 (05:16→15:16)
[2018-07-07 06:33] LABS: ADD MAN DIFF? NO
[2018-07-07 06:49] LABS: WHITE BLOOD COUNT 6.8 10^3/ul (4.8-10.8)
[2018-07-07 06:49] LABS: BASOPHIL # 0.1 10^3/ul (0.0-0.1); BASOPHILS % 1.2 % (0.0-2.0); EOSINOPHILS # 0.3 10^3/ul (0.0-0.5); EOSINOPHILS % 4.2 % (0.0-7.0); HEMATOCRIT 25.8 % (37.0-47.0); HEMOGLOBIN 8.2 g/dl (12.0-16.0); LYMPHOCYTES # 1.6 10^3/ul (0.8-2.9); LYMPHOCYTES % 23.9 % (15.0-51.0); MEAN CORPUSCULAR HGB CONC 31.8 g/dl (32.0-37.0); MEAN CORPUSCULAR VOLUME 94.5 fl (82.0-101.0); MONOCYTE # 0.5 10^3/ul (0.3-0.9); MONOCYTES % 7.2 % (0.0-11.0); NEUTROPHIL # 4.3 10^3/ul (1.6-7.5); NEUTROPHILS % 63.1 % (39.0-77.0); PLATELET COUNT 207 10^3/UL (140-415); RED BLOOD COUNT 2.73 10^6/ul (4.20-5.40); RED CELL DISTRIBUTION WIDTH 18.1 % (11.5-14.5)
[2018-07-07 07:08] LABS: ALANINE AMINOTRANSFERASE 16 IU/L (13-69); ALBUMIN 2.6 g/dl (3.3-4.9); ALBUMIN/GLOBULIN RATIO 0.52; ALKALINE PHOSPHATASE 475 IU/L (42-121); ANION GAP 8 (5-13); ASPARTATE AMINO TRANSFERASE 38 IU/L (15-46); BLOOD UREA NITROGEN 9 mg/dl (7-20); CALCIUM 8.2 mg/dl (8.4-10.2); CARBON DIOXIDE 27 mmol/L (21-31); CHLORIDE 102 mmol/L (97-110); CREATININE 0.51 mg/dl (0.44-1.00); Estimated GFR > 60 mL/min (>60); GLUCOSE 83 mg/dl (70-220); POTASSIUM 3.5 mmol/L (3.5-5.1); SODIUM 137 mmol/L (135-144); TOTAL PROTEIN 7.6 g/dl (6.1-8.1)
[2018-07-07 07:09] LABS: MAGNESIUM 1.9 mg/dl (1.7-2.5)
[2018-07-07] MEDS ORDERED: LORAZEPAM 4 MG/ML VIAL IV (08:00)
[2018-07-07] MEDS: HYDROmorphONE 1 MG/ML SYG IV ×3 (09:36→18:20)
== END 2018-07-07 20:00 | disposition home health service (06) ==
LOC: E/R 14:00 → 2NE 18:46
DX: T85.520A Displacement of bile duct prosthesis, initial encounter (principal); C23 Malignant neoplasm of gallbladder; C78.89 Secondary malignant neoplasm of other digestive organs; D64.9 Anemia, unspecified; Y83.8 Other surgical procedures as the cause of abnormal reaction of the patient, or of later complication, without mention of misadventure at the time of the procedure
CPT/HCPCS: 36415; 49423; 74018; 74150; 80053; 83036; 83690; 83735; 84100; 85025; 87081; 96374; 96376; 99285-25

== ENCOUNTER 2018-07-09 18:06 | Observation (INO) | payer BC ==
[2018-07-09] MEDS: SOD CHLORIDE 0.9% 1,000 ML IV (21:00)
[2018-07-09] MEDS: ONDANSETRON 4 MG INJ IV (21:01)
[2018-07-09] MEDS: morphine 4 MG/ML VIAL IV (21:01)
[2018-07-09 21:02] LABS: ADD MAN DIFF? NO
[2018-07-09 21:06] LABS: WHITE BLOOD COUNT 9.2 10^3/ul (4.8-10.8)
[2018-07-09 21:06] LABS: BASOPHIL # 0.1 10^3/ul (0.0-0.1); BASOPHILS % 1.2 % (0.0-2.0); EOSINOPHILS # 0.2 10^3/ul (0.0-0.5); EOSINOPHILS % 2.6 % (0.0-7.0); HEMATOCRIT 29.4 % (37.0-47.0); HEMOGLOBIN 9.5 g/dl (12.0-16.0); LYMPHOCYTES # 2.1 10^3/ul (0.8-2.9); LYMPHOCYTES % 23.1 % (15.0-51.0); MEAN CORPUSCULAR HEMOGLOBIN 30.7 pg (29.0-33.0); MEAN CORPUSCULAR HGB CONC 32.3 g/dl (32.0-37.0); MEAN CORPUSCULAR VOLUME 95.1 fl (82.0-101.0); MEAN PLATELET VOLUME 9.5 fl (7.4-10.4); MONOCYTE # 0.4 10^3/ul (0.3-0.9); MONOCYTES % 4.6 % (0.0-11.0); NEUTROPHIL # 6.3 10^3/ul (1.6-7.5); NEUTROPHILS % 68.1 % (39.0-77.0); PLATELET COUNT 305 10^3/UL (140-415); RED BLOOD COUNT 3.09 10^6/ul (4.20-5.40); RED CELL DISTRIBUTION WIDTH 18.1 % (11.5-14.5)
[2018-07-09 21:19] LABS: ADD UMIC YES; UR ASCORBIC ACID 40 mg/dL (NEGATIVE); UR BACTERIA FEW /HPF (NONE SEEN); UR BILIRUBIN (Dip) 1+ mg/dL (NEGATIVE); UR BLOOD (Dip) NEGATIVE (NEGATIVE); UR CALCIUM OXALATE CRYSTAL MODERATE /HPF (NONE SEEN); UR CLARITY CLOUDY (CLEAR); UR COLOR AMBER (YELLOW); UR GLUCOSE (Dip) NEGATIVE (NEGATIVE); UR KETONES (Dip) TRACE mg/dL (NEGATIVE); UR LEUKOCYTE ESTERASE (Dip) NEGATIVE Leu/ul (NEGATIVE); UR MUCUS MANY /HPF (NONE SEEN); UR NITRITE (Dip) NEGATIVE (NEGATIVE); UR RBC 73 /HPF (0-5); UR SPECIFIC GRAVITY (Dip) 1.033 (1.003-1.030); UR SQUAMOUS EPITHELIAL CELL MANY /HPF (FEW); UR TOTAL PROTEIN (Dip) 1+ mg/dl (NEGATIVE); UR UROBILINOGEN (Dip) 1+ mg/dL (NEGATIVE); UR WBC 38 /HPF (0-5)
[2018-07-09 21:21] LABS: ALANINE AMINOTRANSFERASE 18 IU/L (13-69); ALBUMIN 3.2 g/dl (3.3-4.9); ALBUMIN/GLOBULIN RATIO 0.54; ALKALINE PHOSPHATASE 827 IU/L (42-121); ANION GAP 10 (5-13); ASPARTATE AMINO TRANSFERASE 51 IU/L (15-46); BILIRUBIN,INDIRECT 0.9 mg/dl (0-1.1); BILIRUBIN,TOTAL 0.9 mg/dl (0.2-1.3); BLOOD UREA NITROGEN 9 mg/dl (7-20); CALCIUM 8.4 mg/dl (8.4-10.2); CARBON DIOXIDE 26 mmol/L (21-31); CHLORIDE 101 mmol/L (97-110); CREATININE 0.51 mg/dl (0.44-1.00); Estimated GFR > 60 mL/min (>60); GLUCOSE 97 mg/dl (70-220); SODIUM 137 mmol/L (135-144); TOTAL PROTEIN 9.1 g/dl (6.1-8.1)
[2018-07-09 21:25] LABS: LIPASE < 10 U/L (23-300)
[2018-07-09] MEDS: CEFTRIAXONE 1 GM/50 ML (PMX) 50 ML IVPB (23:57)
[2018-07-10] MEDS ORDERED: HYDROmorphONE 0.5 MG/0.5 ML SYG IV (00:30)
[2018-07-10] MEDS ORDERED: NACL 0.9% 3 ML SYG IV (00:30)
[2018-07-10] MEDS ORDERED: POTASSIUM CHLORIDE 40 MEQ in SOD CHLORIDE 0.45% 1,000 ML IV (00:30)
[2018-07-10] MEDS ORDERED: DOCUSATE SODIUM 100 MG CAP PO (00:30)
[2018-07-10] MEDS: POTASSIUM CHLORIDE 40 MEQ in SOD CHLORIDE 0.9% 1,000 ML IV ×3 (01:24→20:30)
[2018-07-10] MEDS: LORAZEPAM 1 MG TAB PO (02:09)
[2018-07-10] MEDS: morphine SULFATE/PF (2 MG/2 ML) SYG IV (02:09)
[2018-07-10] MEDS: HEPARIN 5,000 UNIT/1 ML VIAL SC ×2 (02:13→06:00)
[2018-07-10] MEDS: morphine 4 MG/ML VIAL IV ×3 (04:33→21:29)
[2018-07-10] MEDS: ONDANSETRON 4 MG INJ IV ×2 (04:37→21:28)
[2018-07-10 05:32] LABS: ADD MAN DIFF? NO
[2018-07-10 05:41] LABS: BASOPHIL # 0.1 10^3/ul (0.0-0.1); BASOPHILS % 0.9 % (0.0-2.0); EOSINOPHILS # 0.2 10^3/ul (0.0-0.5); EOSINOPHILS % 2.1 % (0.0-7.0); HEMATOCRIT 27.7 % (37.0-47.0); HEMOGLOBIN 8.7 g/dl (12.0-16.0); LYMPHOCYTES # 1.8 10^3/ul (0.8-2.9); LYMPHOCYTES % 21.8 % (15.0-51.0); MEAN CORPUSCULAR HEMOGLOBIN 29.9 pg (29.0-33.0); MEAN CORPUSCULAR HGB CONC 31.4 g/dl (32.0-37.0); MEAN CORPUSCULAR VOLUME 95.2 fl (82.0-101.0); MEAN PLATELET VOLUME 9.7 fl (7.4-10.4); MONOCYTE # 0.5 10^3/ul (0.3-0.9); MONOCYTES % 5.7 % (0.0-11.0); NEUTROPHIL # 5.8 10^3/ul (1.6-7.5); NEUTROPHILS % 69.1 % (39.0-77.0); PLATELET COUNT 268 10^3/UL (140-415); RED BLOOD COUNT 2.91 10^6/ul (4.20-5.40); RED CELL DISTRIBUTION WIDTH 18.1 % (11.5-14.5)
[2018-07-10 05:41] LABS: WHITE BLOOD COUNT 8.4 10^3/ul (4.8-10.8)
[2018-07-10 06:01] LABS: MAGNESIUM 1.9 mg/dl (1.7-2.5)
[2018-07-10 06:07] LABS: ALANINE AMINOTRANSFERASE 27 IU/L (13-69); ALBUMIN 2.7 g/dl (3.3-4.9); ALBUMIN/GLOBULIN RATIO 0.51; ALKALINE PHOSPHATASE 1181 IU/L (42-121); ANION GAP 6 (5-13); ASPARTATE AMINO TRANSFERASE 86 IU/L (15-46); BILIRUBIN,INDIRECT 0.7 mg/dl (0-1.1); BILIRUBIN,TOTAL 1.4 mg/dl (0.2-1.3); BLOOD UREA NITROGEN 6 mg/dl (7-20); CARBON DIOXIDE 28 mmol/L (21-31); CHLORIDE 104 mmol/L (97-110); CREATININE 0.47 mg/dl (0.44-1.00); Estimated GFR > 60 mL/min (>60); GLUCOSE 81 mg/dl (70-220); POTASSIUM 3.4 mmol/L (3.5-5.1); SODIUM 138 mmol/L (135-144); TOTAL PROTEIN 7.9 g/dl (6.1-8.1)
[2018-07-10 06:10] LABS: INR 1.38; PARTIAL THROMBOPLASTIN TIME 37.2 Sec (23.0-35.0); PROTIME 17.2 Sec (11.9-14.9); PT RATIO 1.3
[2018-07-10] MEDS: LIDOCAINE 1% (MPF) 5 ML VIAL (11:23)
[2018-07-10] MEDS: IOHEXOL 300MG/ML 30 ML BTL (11:23)
[2018-07-10] MEDS: SOD CHLORIDE 0.9% 500 ML (11:23)
[2018-07-10] MEDS: MIDAZOLAM 1 MG/ML 2 ML INJ ×2 (11:47→13:20)
[2018-07-10] MEDS: FENTAnyl 50 MCG/ML VIAL ×2 (11:47→12:51)
[2018-07-10] MEDS: ONDANSETRON 4 MG INJ (12:25)
[2018-07-11] MEDS: LORAZEPAM 1 MG TAB PO ×2 (00:07→18:13)
[2018-07-11] MEDS: POTASSIUM CHLORIDE 40 MEQ in SOD CHLORIDE 0.9% 1,000 ML IV (01:44)
[2018-07-11 05:21] LABS: ADD MAN DIFF? NO
[2018-07-11 05:29] LABS: BASOPHIL # 0.1 10^3/ul (0.0-0.1); BASOPHILS % 0.7 % (0.0-2.0); EOSINOPHILS # 0.1 10^3/ul (0.0-0.5); EOSINOPHILS % 0.5 % (0.0-7.0); HEMATOCRIT 24.7 % (37.0-47.0); HEMOGLOBIN 7.9 g/dl (12.0-16.0); LYMPHOCYTES # 1.8 10^3/ul (0.8-2.9); LYMPHOCYTES % 13.9 % (15.0-51.0); MEAN CORPUSCULAR HEMOGLOBIN 30.5 pg (29.0-33.0); MEAN CORPUSCULAR VOLUME 95.4 fl (82.0-101.0); MEAN PLATELET VOLUME 9.7 fl (7.4-10.4); MONOCYTE # 0.5 10^3/ul (0.3-0.9); NEUTROPHIL # 10.5 10^3/ul (1.6-7.5); NEUTROPHILS % 80.5 % (39.0-77.0); PLATELET COUNT 206 10^3/UL (140-415); RED BLOOD COUNT 2.59 10^6/ul (4.20-5.40); RED CELL DISTRIBUTION WIDTH 18.2 % (11.5-14.5)
[2018-07-11 06:12] LABS: ALANINE AMINOTRANSFERASE 29 IU/L (13-69); ALBUMIN 2.2 g/dl (3.3-4.9); ALBUMIN/GLOBULIN RATIO 0.51; ALKALINE PHOSPHATASE 901 IU/L (42-121); ANION GAP 4 (5-13); ASPARTATE AMINO TRANSFERASE 49 IU/L (15-46); BILIRUBIN,INDIRECT 0.8 mg/dl (0-1.1); BILIRUBIN,TOTAL 0.8 mg/dl (0.2-1.3); BLOOD UREA NITROGEN 5 mg/dl (7-20); CARBON DIOXIDE 25 mmol/L (21-31); CHLORIDE 108 mmol/L (97-110); CREATININE 0.59 mg/dl (0.44-1.00); Estimated GFR > 60 mL/min (>60); GLUCOSE 92 mg/dl (70-220); MAGNESIUM 1.8 mg/dl (1.7-2.5); POTASSIUM 4.4 mmol/L (3.5-5.1); SODIUM 137 mmol/L (135-144); TOTAL PROTEIN 6.5 g/dl (6.1-8.1)
[2018-07-11] MEDS: ONDANSETRON 4 MG INJ IV (06:45)
[2018-07-11] MEDS: morphine 4 MG/ML VIAL IV ×4 (06:45→23:30)
[2018-07-11] MEDS: CEFTRIAXONE 1 GM/50 ML (PMX) 50 ML IVPB (13:04)
[2018-07-11 15:19] LABS: IMMEDIATE SPIN CROSSMATCH 1 4
[2018-07-11] MEDS: ACETAMINOPHEN 325 MG TAB PO (20:19)
[2018-07-12] MEDS: morphine 4 MG/ML VIAL IV ×4 (04:38→19:30)
[2018-07-12 05:22] LABS: ADD MAN DIFF? NO
[2018-07-12 05:29] LABS: WHITE BLOOD COUNT 8.8 10^3/ul (4.8-10.8)
[2018-07-12 05:29] LABS: BASOPHIL # 0.1 10^3/ul (0.0-0.1); BASOPHILS % 0.9 % (0.0-2.0); EOSINOPHILS # 0.3 10^3/ul (0.0-0.5); EOSINOPHILS % 3.6 % (0.0-7.0); HEMATOCRIT 31.8 % (37.0-47.0); HEMOGLOBIN 10.4 g/dl (12.0-16.0); LYMPHOCYTES # 1.7 10^3/ul (0.8-2.9); LYMPHOCYTES % 19.4 % (15.0-51.0); MEAN CORPUSCULAR HEMOGLOBIN 30.8 pg (29.0-33.0); MEAN CORPUSCULAR HGB CONC 32.7 g/dl (32.0-37.0); MEAN CORPUSCULAR VOLUME 94.1 fl (82.0-101.0); MEAN PLATELET VOLUME 9.5 fl (7.4-10.4); MONOCYTE # 0.5 10^3/ul (0.3-0.9); MONOCYTES % 5.3 % (0.0-11.0); NEUTROPHIL # 6.2 10^3/ul (1.6-7.5); NEUTROPHILS % 70.5 % (39.0-77.0); PLATELET COUNT 215 10^3/UL (140-415); RED BLOOD COUNT 3.38 10^6/ul (4.20-5.40); RED CELL DISTRIBUTION WIDTH 17.2 % (11.5-14.5)
[2018-07-12 06:10] LABS: ALANINE AMINOTRANSFERASE 28 IU/L (13-69); ALBUMIN 2.4 g/dl (3.3-4.9); ALBUMIN/GLOBULIN RATIO 0.54; ALKALINE PHOSPHATASE 644 IU/L (42-121); ANION GAP 7 (5-13); ASPARTATE AMINO TRANSFERASE 31 IU/L (15-46); BILIRUBIN,INDIRECT 1.6 mg/dl (0-1.1); BILIRUBIN,TOTAL 1.6 mg/dl (0.2-1.3); BLOOD UREA NITROGEN 7 mg/dl (7-20); CARBON DIOXIDE 26 mmol/L (21-31); CHLORIDE 104 mmol/L (97-110); CREATININE 0.54 mg/dl (0.44-1.00); Estimated GFR > 60 mL/min (>60); GLUCOSE 103 mg/dl (70-220); SODIUM 137 mmol/L (135-144); TOTAL PROTEIN 6.8 g/dl (6.1-8.1)
[2018-07-12] MEDS: LORAZEPAM 1 MG TAB PO (06:10)
[2018-07-12] MEDS: CEFTRIAXONE 1 GM/50 ML (PMX) 50 ML IVPB (12:28)
[2018-07-12] MEDS: morphine SULFATE/PF (2 MG/2 ML) SYG IV (13:22)
[2018-07-12] MEDS: BISACODYL (EC) 5 MG TAB PO (17:37)
[2018-07-12] MEDS: ONDANSETRON 4 MG INJ IV (19:29)
== END 2018-07-12 21:40 | disposition home or self-care (01) ==
LOC: MS1 23:27 → E/R 18:06
PROVIDERS: Pediatrics Neonatal-Perinatal Medicine
DX: T85.510A Breakdown (mechanical) of bile duct prosthesis, initial encounter (principal); Y84.8 Other medical procedures as the cause of abnormal reaction of the patient, or of later complication, without mention of misadventure at the time of the procedure; C22.1 Intrahepatic bile duct carcinoma; D63.8 Anemia in other chronic diseases classified elsewhere; K59.00 Constipation, unspecified; F41.9 Anxiety disorder, unspecified; E87.6 Hypokalemia
CPT/HCPCS: 36415; 36430; 47525; 71045; 74176; 80053; 81001; 81025; 83690; 83735; 85025; 85610; 85730; 86850; 86900; 86901; 86920; 87086; 96374; 96375; 99285-25

== ENCOUNTER 2018-08-06 11:25 | Observation (INO) | payer BC ==
[2018-08-06 12:47] LABS: ADD MAN DIFF? NO
[2018-08-06] MEDS: ONDANSETRON 4 MG INJ IV (12:48)
[2018-08-06] MEDS: HYDROmorphONE 1 MG/ML SYG IV (12:48)
[2018-08-06] MEDS: SOD CHLORIDE 0.9% 1,000 ML IV (12:48)
[2018-08-06 12:51] LABS: BASOPHIL # 0.1 10^3/ul (0.0-0.1); BASOPHILS % 1.2 % (0.0-2.0); EOSINOPHILS # 0.1 10^3/ul (0.0-0.5); EOSINOPHILS % 1.5 % (0.0-7.0); HEMATOCRIT 34.9 % (37.0-47.0); HEMOGLOBIN 11.5 g/dl (12.0-16.0); LYMPHOCYTES # 1.3 10^3/ul (0.8-2.9); LYMPHOCYTES % 20.9 % (15.0-51.0); MEAN CORPUSCULAR HEMOGLOBIN 31.3 pg (29.0-33.0); MEAN CORPUSCULAR VOLUME 95.1 fl (82.0-101.0); MEAN PLATELET VOLUME 9.5 fl (7.4-10.4); MONOCYTE # 0.2 10^3/ul (0.3-0.9); MONOCYTES % 3.6 % (0.0-11.0); NEUTROPHIL # 4.4 10^3/ul (1.6-7.5); NEUTROPHILS % 72.5 % (39.0-77.0); PLATELET COUNT 269 10^3/UL (140-415); RED BLOOD COUNT 3.67 10^6/ul (4.20-5.40); RED CELL DISTRIBUTION WIDTH 15.5 % (11.5-14.5)
[2018-08-06 12:51] LABS: WHITE BLOOD COUNT 6.1 10^3/ul (4.8-10.8)
[2018-08-06 13:10] LABS: INR 1.11; PROTIME 14.4 Sec (11.9-14.9); PT RATIO 1.1
[2018-08-06 13:11] LABS: PARTIAL THROMBOPLASTIN TIME 31.5 Sec (23.0-35.0)
[2018-08-06 13:15] LABS: ALANINE AMINOTRANSFERASE 46 IU/L (13-69); ALBUMIN 3.1 g/dl (3.3-4.9); ALBUMIN/GLOBULIN RATIO 0.54; ALKALINE PHOSPHATASE 887 IU/L (42-121); ANION GAP 6 (5-13); ASPARTATE AMINO TRANSFERASE 71 IU/L (15-46); BILIRUBIN,INDIRECT 1.7 mg/dl (0-1.1); BILIRUBIN,TOTAL 1.7 mg/dl (0.2-1.3); BLOOD UREA NITROGEN 9 mg/dl (7-20); CALCIUM 8.7 mg/dl (8.4-10.2); CARBON DIOXIDE 29 mmol/L (21-31); CHLORIDE 100 mmol/L (97-110); CREATININE 0.54 mg/dl (0.44-1.00); Estimated GFR > 60 mL/min (>60); GLUCOSE 108 mg/dl (70-220); POTASSIUM 3.1 mmol/L (3.5-5.1); SODIUM 135 mmol/L (135-144); TOTAL PROTEIN 8.8 g/dl (6.1-8.1)
[2018-08-06 13:18] LABS: LIPASE < 10 U/L (23-300)
[2018-08-06] MEDS ORDERED: NACL 0.9% 3 ML SYG IV (15:30)
[2018-08-06] MEDS ORDERED: METOCLOPRAMIDE 5 MG TAB PO (15:30)
[2018-08-06] MEDS ORDERED: ONDANSETRON 4 MG INJ IV (15:30)
[2018-08-06] MEDS: POTASSIUM CHLORIDE 20 MEQ POWDER FOR ORAL SOLN PO (17:25)
[2018-08-06] MEDS: POTASSIUM CHLORIDE (SR) 20 MEQ TAB PO (17:33)
[2018-08-06] MEDS: HYDROmorphONE 2 MG TAB PO ×2 (19:02→23:37)
[2018-08-06] MEDS: morphine (ER) 15 MG TAB PO (21:38)
[2018-08-07] MEDS: LORAZEPAM 1 MG TAB PO ×2 (01:34→14:52)
[2018-08-07 05:18] LABS: ADD MAN DIFF? NO
[2018-08-07 05:24] LABS: WHITE BLOOD COUNT 6.7 10^3/ul (4.8-10.8)
[2018-08-07 05:24] LABS: BASOPHIL # 0.1 10^3/ul (0.0-0.1); BASOPHILS % 1.3 % (0.0-2.0); EOSINOPHILS # 0.2 10^3/ul (0.0-0.5); EOSINOPHILS % 3.6 % (0.0-7.0); HEMATOCRIT 29.8 % (37.0-47.0); HEMOGLOBIN 9.9 g/dl (12.0-16.0); LYMPHOCYTES # 1.8 10^3/ul (0.8-2.9); LYMPHOCYTES % 26.7 % (15.0-51.0); MEAN CORPUSCULAR HGB CONC 33.2 g/dl (32.0-37.0); MEAN CORPUSCULAR VOLUME 96.4 fl (82.0-101.0); MEAN PLATELET VOLUME 9.8 fl (7.4-10.4); MONOCYTE # 0.4 10^3/ul (0.3-0.9); MONOCYTES % 5.2 % (0.0-11.0); NEUTROPHIL # 4.2 10^3/ul (1.6-7.5); NEUTROPHILS % 62.9 % (39.0-77.0); PLATELET COUNT 226 10^3/UL (140-415); RED BLOOD COUNT 3.09 10^6/ul (4.20-5.40); RED CELL DISTRIBUTION WIDTH 15.6 % (11.5-14.5)
[2018-08-07 05:41] LABS: HEMOGLOBIN A1C 4.7 % (0-5.9)
[2018-08-07 06:05] LABS: ALANINE AMINOTRANSFERASE 43 IU/L (13-69); ALBUMIN 2.4 g/dl (3.3-4.9); ALBUMIN/GLOBULIN RATIO 0.51; ALKALINE PHOSPHATASE 583 IU/L (42-121); ANION GAP 7 (5-13); ASPARTATE AMINO TRANSFERASE 63 IU/L (15-46); BILIRUBIN,INDIRECT 1.1 mg/dl (0-1.1); BILIRUBIN,TOTAL 1.1 mg/dl (0.2-1.3); BLOOD UREA NITROGEN 6 mg/dl (7-20); CALCIUM 8.1 mg/dl (8.4-10.2); CARBON DIOXIDE 28 mmol/L (21-31); CHLORIDE 102 mmol/L (97-110); CREATININE 0.49 mg/dl (0.44-1.00); Estimated GFR > 60 mL/min (>60); GLUCOSE 91 mg/dl (70-220); MAGNESIUM 1.8 mg/dl (1.7-2.5); PHOSPHORUS 3.4 mg/dl (2.5-4.9); POTASSIUM 3.6 mmol/L (3.5-5.1); SODIUM 137 mmol/L (135-144); TOTAL PROTEIN 7.1 g/dl (6.1-8.1)
[2018-08-07] MEDS: PANTOPRAZOLE (EC) 40 MG TAB PO (06:31)
[2018-08-07] MEDS: ENOXAPARIN 40 MG/0.4 ML SYG SC (08:58)
[2018-08-07] MEDS: morphine (ER) 15 MG TAB PO ×2 (08:59→20:48)
[2018-08-07 09:05] LABS: IRON 78 ug/dl (35-150)
[2018-08-07 09:14] LABS: % IRON SATURATION 49 % SAT (22-52); TOTAL IRON BINDING CAPACITY 158 ug/dl (241-421)
[2018-08-07] MEDS: HYDROmorphONE 2 MG TAB PO ×2 (11:44→18:15)
[2018-08-07 13:08] LABS: ADD UMIC NO; UR ASCORBIC ACID NEGATIVE (NEGATIVE); UR BACTERIA FEW /HPF (NONE SEEN); UR BILIRUBIN (Dip) NEGATIVE (NEGATIVE); UR BLOOD (Dip) NEGATIVE (NEGATIVE); UR CALCIUM OXALATE CRYSTAL MODERATE /HPF (NONE SEEN); UR CLARITY SLIGHTLY CLOUDY (CLEAR); UR COLOR YELLOW (YELLOW); UR GLUCOSE (Dip) NEGATIVE (NEGATIVE); UR KETONES (Dip) NEGATIVE (NEGATIVE); UR LEUKOCYTE ESTERASE (Dip) NEGATIVE Leu/ul (NEGATIVE); UR MUCUS FEW /HPF (NONE SEEN); UR NITRITE (Dip) NEGATIVE (NEGATIVE); UR RBC 6 /HPF (0-5); UR SPECIFIC GRAVITY (Dip) 1.012 (1.003-1.030); UR SQUAMOUS EPITHELIAL CELL FEW /HPF (FEW); UR TOTAL PROTEIN (Dip) NEGATIVE (NEGATIVE); UR UROBILINOGEN (Dip) 1+ mg/dL (NEGATIVE); UR WBC 2 /HPF (0-5)
[2018-08-07] MEDS: SENNA TAB PO ×2 (14:04→20:48)
[2018-08-07] MEDS: BISACODYL 10 MG SUPP PR (17:30)
[2018-08-08] MEDS: LORAZEPAM 1 MG TAB PO (00:44)
[2018-08-08] MEDS: POLYETHYLENE GLYCOL 17 GM PACKET PO ×2 (00:56→13:24)
[2018-08-08] MEDS: PANTOPRAZOLE (EC) 40 MG TAB PO (05:41)
[2018-08-08] MEDS: SENNA TAB PO (09:10)
[2018-08-08] MEDS: BISACODYL 10 MG SUPP PR (09:10)
[2018-08-08] MEDS: morphine (ER) 15 MG TAB PO (09:10)
[2018-08-08] MEDS: ENOXAPARIN 40 MG/0.4 ML SYG SC (09:18)
[2018-08-08] MEDS: MAGNESIUM HYDROXIDE 30ML CUP PO (13:23)
== END 2018-08-08 16:25 | disposition home or self-care (01) ==
LOC: E/R 11:25 → 2NE 14:16
DX: C23 Malignant neoplasm of gallbladder (principal); G89.3 Neoplasm related pain (acute) (chronic); K52.9 Noninfective gastroenteritis and colitis, unspecified; K75.0 Abscess of liver; K83.1 Obstruction of bile duct
CPT/HCPCS: 36415; 36589; 74176; 80053; 81001; 81003; 82728; 83036; 83540; 83690; 83735; 84100; 84443; 85025; 85610; 85730; 87040; 96374; 96375; 97165; 99291-25

== ENCOUNTER 2018-08-19 16:41 | Inpatient (IN) | payer MEDICARE, BC ==
[2018-08-19 19:20] LABS: URINE BLOOD (Dip) POC Negative (NEGATIVE); URINE GLUCOSE (Dip) POC Negative (NEGATIVE); URINE KETONES (Dip) POC 1+ (NEGATIVE); URINE LEUKOCYTE EST (Dip) POC Negative (NEGATIVE); URINE NITRITE (Dip) POC Negative (NEGATIVE); URINE TOTAL PROTEIN POC 2+ (NEGATIVE)
[2018-08-19 19:21] LABS: ADD MAN DIFF? NO
[2018-08-19 19:41] LABS: ALBUMIN 3.4 g/dl (3.3-4.9); ALBUMIN/GLOBULIN RATIO 0.54; ALKALINE PHOSPHATASE 513 IU/L (42-121); ANION GAP 14 (5-13); ASPARTATE AMINO TRANSFERASE 68 IU/L (15-46); BILIRUBIN,INDIRECT 2.3 mg/dl (0-1.1); BILIRUBIN,TOTAL 2.4 mg/dl (0.2-1.3); BLOOD UREA NITROGEN 9 mg/dl (7-20); CALCIUM 8.9 mg/dl (8.4-10.2); CARBON DIOXIDE 19 mmol/L (21-31); CHLORIDE 104 mmol/L (97-110); CREATININE 0.56 mg/dl (0.44-1.00); Estimated GFR > 60 mL/min (>60); GLUCOSE 109 mg/dl (70-220); POTASSIUM 3.4 mmol/L (3.5-5.1); SODIUM 137 mmol/L (135-144); TOTAL PROTEIN 9.6 g/dl (6.1-8.1)
[2018-08-19 19:42] LABS: ALANINE AMINOTRANSFERASE < 6 IU/L (13-69); LIPASE < 10 U/L (23-300)
[2018-08-19] MEDS: ONDANSETRON (ODT) 4 MG TAB ODT (19:54)
[2018-08-19] MEDS: SOD CHLORIDE 0.9% 1,000 ML IV ×2 (19:54→23:32)
[2018-08-19] MEDS: HYDROCODONE/APAP (10/325) TAB PO (19:54)
[2018-08-19 20:15] LABS: BASOPHIL # 0.1 10^3/ul (0.0-0.1); BASOPHILS % 0.7 % (0.0-2.0); EOSINOPHILS % 0.1 % (0.0-7.0); HEMATOCRIT 35.6 % (37.0-47.0); HEMOGLOBIN 11.6 g/dl (12.0-16.0); LYMPHOCYTES % 14.7 % (15.0-51.0); MEAN CORPUSCULAR HEMOGLOBIN 31.8 pg (29.0-33.0); MEAN CORPUSCULAR HGB CONC 32.6 g/dl (32.0-37.0); MEAN CORPUSCULAR VOLUME 97.5 fl (82.0-101.0); MEAN PLATELET VOLUME 9.7 fl (7.4-10.4); MONOCYTE # 0.3 10^3/ul (0.3-0.9); MONOCYTES % 3.5 % (0.0-11.0); NEUTROPHIL # 5.7 10^3/ul (1.6-7.5); NEUTROPHILS % 80.6 % (39.0-77.0); PLATELET COUNT 257 10^3/UL (140-415); RED BLOOD COUNT 3.65 10^6/ul (4.20-5.40); RED CELL DISTRIBUTION WIDTH 14.2 % (11.5-14.5)
[2018-08-19 20:15] LABS: WHITE BLOOD COUNT 7.1 10^3/ul (4.8-10.8)
[2018-08-19] MEDS: POTASSIUM CHLORIDE (SR) 20 MEQ TAB PO (20:50)
[2018-08-19] MEDS: HYDROmorphONE 0.5 MG/0.5 ML SYG IV ×2 (21:32→23:32)
[2018-08-19] MEDS ORDERED: ACETAMINOPHEN 325 MG TAB PO (22:30)
[2018-08-19] MEDS ORDERED: DOCUSATE SODIUM 100 MG CAP PO (22:30)
[2018-08-19] MEDS ORDERED: ONDANSETRON 4 MG INJ IV (22:30)
[2018-08-19] MEDS ORDERED: BISACODYL (EC) 5 MG TAB PO (22:30)
[2018-08-19] MEDS ORDERED: NACL 0.9% 3 ML SYG IV (22:30)
[2018-08-20] MEDS: LORAZEPAM 1 MG TAB PO ×3 (00:01→21:14)
[2018-08-20] MEDS: HYDROmorphONE 0.5 MG/0.5 ML SYG IV ×2 (02:43→05:37)
[2018-08-20 05:40] LABS: ADD MAN DIFF? NO
[2018-08-20 05:49] LABS: WHITE BLOOD COUNT 5.6 10^3/ul (4.8-10.8)
[2018-08-20 05:49] LABS: BASOPHILS % 0.7 % (0.0-2.0); EOSINOPHILS # 0.1 10^3/ul (0.0-0.5); EOSINOPHILS % 1.8 % (0.0-7.0); HEMATOCRIT 27.1 % (37.0-47.0); LYMPHOCYTES # 1.7 10^3/ul (0.8-2.9); LYMPHOCYTES % 30.3 % (15.0-51.0); MEAN CORPUSCULAR HGB CONC 33.2 g/dl (32.0-37.0); MEAN CORPUSCULAR VOLUME 96.4 fl (82.0-101.0); MONOCYTE # 0.3 10^3/ul (0.3-0.9); MONOCYTES % 5.8 % (0.0-11.0); NEUTROPHIL # 3.4 10^3/ul (1.6-7.5); PLATELET COUNT 188 10^3/UL (140-415); RED BLOOD COUNT 2.81 10^6/ul (4.20-5.40); RED CELL DISTRIBUTION WIDTH 14.4 % (11.5-14.5)
[2018-08-20 06:05] LABS: ALANINE AMINOTRANSFERASE 25 IU/L (13-69); ALBUMIN/GLOBULIN RATIO 0.46; ALKALINE PHOSPHATASE 262 IU/L (42-121); ANION GAP 2 (5-13); ASPARTATE AMINO TRANSFERASE 29 IU/L (15-46); BILIRUBIN,INDIRECT 1.4 mg/dl (0-1.1); BILIRUBIN,TOTAL 1.4 mg/dl (0.2-1.3); BLOOD UREA NITROGEN 8 mg/dl (7-20); CALCIUM 7.7 mg/dl (8.4-10.2); CARBON DIOXIDE 24 mmol/L (21-31); CHLORIDE 110 mmol/L (97-110); CHOL/HDL RATIO 2.4 RATIO; CHOLESTEROL 58 mg/dl (100-200); CREATININE 0.51 mg/dl (0.44-1.00); Estimated GFR > 60 mL/min (>60); GLUCOSE 79 mg/dl (70-220); HDL CHOLESTEROL 24 mg/dl (34-88); LDL CHOLESTEROL,CALCULATED 26 mg/dl; MAGNESIUM 1.9 mg/dl (1.7-2.5); POTASSIUM 3.5 mmol/L (3.5-5.1); SODIUM 136 mmol/L (135-144); TOTAL PROTEIN 6.3 g/dl (6.1-8.1); TRIGLYCERIDES 42 mg/dl (0-149)
[2018-08-20 06:06] LABS: HEMOGLOBIN A1C 4.9 % (0-5.9)
[2018-08-20] MEDS: HYDROmorphONE 1 MG/ML SYG IV ×6 (06:12→20:39)
[2018-08-20 06:18] LABS: FREE T4 (FREE THYROXINE) 1.85 ng/dl (0.64-1.79)
[2018-08-20 06:19] LABS: FREE T3 2.53 pg/ml (2.77-5.27)
[2018-08-20] MEDS: SOD CHLORIDE 0.9% 1,000 ML IV (11:11)
[2018-08-20 11:57] LABS: INR 1.44; PROTIME 17.6 Sec (11.9-14.9); PT RATIO 1.4
[2018-08-20] MEDS ORDERED: LORAZEPAM 1 MG TAB (12:09)
[2018-08-21] MEDS: SOD CHLORIDE 0.9% 1,000 ML IV ×3 (00:05→21:47)
[2018-08-21] MEDS: HYDROmorphONE 1 MG/ML SYG IV ×7 (00:22→23:12)
[2018-08-21 05:20] LABS: ADD MAN DIFF? NO
[2018-08-21 05:23] LABS: WHITE BLOOD COUNT 7.7 10^3/ul (4.8-10.8)
[2018-08-21 05:23] LABS: BASOPHIL # 0.1 10^3/ul (0.0-0.1); BASOPHILS % 0.9 % (0.0-2.0); EOSINOPHILS # 0.2 10^3/ul (0.0-0.5); HEMATOCRIT 30.2 % (37.0-47.0); LYMPHOCYTES # 1.8 10^3/ul (0.8-2.9); LYMPHOCYTES % 23.3 % (15.0-51.0); MEAN CORPUSCULAR HEMOGLOBIN 31.9 pg (29.0-33.0); MEAN CORPUSCULAR HGB CONC 33.1 g/dl (32.0-37.0); MEAN CORPUSCULAR VOLUME 96.5 fl (82.0-101.0); MEAN PLATELET VOLUME 9.7 fl (7.4-10.4); MONOCYTE # 0.4 10^3/ul (0.3-0.9); MONOCYTES % 5.3 % (0.0-11.0); NEUTROPHIL # 5.3 10^3/ul (1.6-7.5); NEUTROPHILS % 68.2 % (39.0-77.0); PLATELET COUNT 193 10^3/UL (140-415); RED BLOOD COUNT 3.13 10^6/ul (4.20-5.40); RED CELL DISTRIBUTION WIDTH 14.1 % (11.5-14.5)
[2018-08-21 05:36] LABS: INR 1.55; PROTIME 18.7 Sec (11.9-14.9); PT RATIO 1.5
[2018-08-21 06:11] LABS: ALBUMIN 2.3 g/dl (3.3-4.9); ANION GAP 5 (5-13); BLOOD UREA NITROGEN 7 mg/dl (7-20); CALCIUM 7.9 mg/dl (8.4-10.2); CARBON DIOXIDE 24 mmol/L (21-31); CHLORIDE 105 mmol/L (97-110); CREATININE 0.58 mg/dl (0.44-1.00); GLUCOSE 89 mg/dl (70-220); MAGNESIUM 1.8 mg/dl (1.7-2.5); PHOSPHORUS 2.9 mg/dl (2.5-4.9); POTASSIUM 3.1 mmol/L (3.5-5.1); SODIUM 134 mmol/L (135-144)
[2018-08-21] MEDS: PHYTONADIONE 10 MG/ML INJ SC (09:11)
[2018-08-21] MEDS: POTASSIUM CHLORIDE 100 ML IVPB ×2 (11:14→16:23)
[2018-08-21] MEDS: SOD CHLORIDE 0.9% 500 ML (13:30)
[2018-08-21] MEDS: MIDAZOLAM 1 MG/ML 2 ML INJ (13:50)
[2018-08-21] MEDS: LIDOCAINE 1% (MPF) 5 ML VIAL ×2 (13:54)
[2018-08-21] MEDS: FENTAnyl 50 MCG/ML VIAL ×2 (13:55→14:06)
[2018-08-21] MEDS: IOHEXOL 300MG/ML 30 ML BTL (13:55)
[2018-08-21] MEDS: CEFAZOLIN 1 GM/50 ML (PMX) 50 ML IVPB (14:00)
[2018-08-21] MEDS: LORAZEPAM 1 MG TAB PO (21:45)
[2018-08-22] MEDS: LORAZEPAM 1 MG TAB PO ×4 (01:44→21:21)
[2018-08-22] MEDS: HYDROmorphONE 1 MG/ML SYG IV ×6 (02:08→21:21)
[2018-08-22] MEDS: SOD CHLORIDE 0.9% 1,000 ML IV (02:12)
[2018-08-22 05:20] LABS: ADD MAN DIFF? NO
[2018-08-22 05:35] LABS: BASOPHIL # 0.1 10^3/ul (0.0-0.1); BASOPHILS % 0.9 % (0.0-2.0); EOSINOPHILS # 0.3 10^3/ul (0.0-0.5); EOSINOPHILS % 3.3 % (0.0-7.0); HEMATOCRIT 31.2 % (37.0-47.0); HEMOGLOBIN 10.4 g/dl (12.0-16.0); LYMPHOCYTES # 2.2 10^3/ul (0.8-2.9); LYMPHOCYTES % 26.1 % (15.0-51.0); MEAN CORPUSCULAR HEMOGLOBIN 32.3 pg (29.0-33.0); MEAN CORPUSCULAR HGB CONC 33.3 g/dl (32.0-37.0); MEAN CORPUSCULAR VOLUME 96.9 fl (82.0-101.0); MONOCYTE # 0.4 10^3/ul (0.3-0.9); MONOCYTES % 5.1 % (0.0-11.0); NEUTROPHIL # 5.4 10^3/ul (1.6-7.5); NEUTROPHILS % 64.2 % (39.0-77.0); PLATELET COUNT 217 10^3/UL (140-415); RED BLOOD COUNT 3.22 10^6/ul (4.20-5.40); RED CELL DISTRIBUTION WIDTH 14.1 % (11.5-14.5)
[2018-08-22 05:35] LABS: WHITE BLOOD COUNT 8.5 10^3/ul (4.8-10.8)
[2018-08-22 05:42] LABS: ALBUMIN 2.3 g/dl (3.3-4.9); ANION GAP 5 (5-13); BLOOD UREA NITROGEN 6 mg/dl (7-20); CARBON DIOXIDE 24 mmol/L (21-31); CHLORIDE 106 mmol/L (97-110); CREATININE 0.57 mg/dl (0.44-1.00); GLUCOSE 98 mg/dl (70-220); MAGNESIUM 1.8 mg/dl (1.7-2.5); PHOSPHORUS 2.8 mg/dl (2.5-4.9); POTASSIUM 3.3 mmol/L (3.5-5.1); SODIUM 135 mmol/L (135-144)
[2018-08-22] MEDS: POTASSIUM CHLORIDE (SR) 20 MEQ TAB PO (09:55)
[2018-08-22] MEDS: HYDROCODONE/APAP (5/325) TAB PO (23:24)
[2018-08-23] MEDS: HYDROmorphONE 1 MG/ML SYG IV ×5 (00:20→15:16)
[2018-08-23] MEDS: LORAZEPAM 1 MG TAB PO ×2 (03:52→09:09)
[2018-08-23 05:57] LABS: ALBUMIN 2.2 g/dl (3.3-4.9); ANION GAP 4 (5-13); BLOOD UREA NITROGEN 5 mg/dl (7-20); CARBON DIOXIDE 26 mmol/L (21-31); CHLORIDE 105 mmol/L (97-110); CREATININE 0.51 mg/dl (0.44-1.00); GLUCOSE 121 mg/dl (70-220); PHOSPHORUS 2.8 mg/dl (2.5-4.9); POTASSIUM 3.6 mmol/L (3.5-5.1); SODIUM 135 mmol/L (135-144)
[2018-08-23] MEDS: POTASSIUM CHLORIDE (SR) 20 MEQ TAB PO (09:08)
[2018-08-23] MEDS: HYDROCODONE/APAP (5/325) TAB PO (14:01)
== END 2018-08-23 18:40 | disposition home or self-care (01) | DRG 920 ==
LOC: E/R 16:41 → MS1 22:53
PROC: 0F2BX0Z Change Drainage Device in Hepatobiliary Duct, External Approach (ICD-10-PCS; principal; 2018-08-21)
DX: T85.510A Breakdown (mechanical) of bile duct prosthesis, initial encounter (principal); C24.9 Malignant neoplasm of biliary tract, unspecified; D63.8 Anemia in other chronic diseases classified elsewhere; F41.9 Anxiety disorder, unspecified; K21.9 Gastro-esophageal reflux disease without esophagitis
CPT/HCPCS: 36415; 47525; 74018; 80053; 80061; 80069; 81003; 81025; 83036; 83690; 83735; 84439; 84443; 84481; 85025; 85610; 99285-25

== ENCOUNTER 2018-08-30 20:52 | Inpatient (IN) | payer MEDICARE, BC ==
[2018-08-30 23:42] LABS: ADD MAN DIFF? NO
[2018-08-30 23:44] LABS: BASOPHIL # 0.1 10^3/ul (0.0-0.1); BASOPHILS % 0.5 % (0.0-2.0); EOSINOPHILS % 0.1 % (0.0-7.0); HEMATOCRIT 34.7 % (37.0-47.0); HEMOGLOBIN 11.6 g/dl (12.0-16.0); LYMPHOCYTES # 1.6 10^3/ul (0.8-2.9); LYMPHOCYTES % 16.4 % (15.0-51.0); MEAN CORPUSCULAR HEMOGLOBIN 31.9 pg (29.0-33.0); MEAN CORPUSCULAR HGB CONC 33.4 g/dl (32.0-37.0); MEAN CORPUSCULAR VOLUME 95.3 fl (82.0-101.0); MEAN PLATELET VOLUME 10.3 fl (7.4-10.4); MONOCYTE # 0.4 10^3/ul (0.3-0.9); NEUTROPHIL # 7.8 10^3/ul (1.6-7.5); NEUTROPHILS % 78.6 % (39.0-77.0); PLATELET COUNT 319 10^3/UL (140-415); RED BLOOD COUNT 3.64 10^6/ul (4.20-5.40); RED CELL DISTRIBUTION WIDTH 14.6 % (11.5-14.5)
[2018-08-30] MEDS: SOD CHLORIDE 0.9% 2,000 ML IV (23:45)
[2018-08-30] MEDS: ONDANSETRON 4 MG INJ IV (23:45)
[2018-08-31 00:05] LABS: ANION GAP 11 (5-13); Estimated GFR > 60 mL/min (>60)
[2018-08-31 00:06] LABS: ALANINE AMINOTRANSFERASE 10 IU/L (13-69); ALKALINE PHOSPHATASE 313 IU/L (42-121); ASPARTATE AMINO TRANSFERASE 47 IU/L (15-46); BILIRUBIN,INDIRECT 3.7 mg/dl (0-1.1); BILIRUBIN,TOTAL 4.4 mg/dl (0.2-1.3); BLOOD UREA NITROGEN 9 mg/dl (7-20); CALCIUM 8.4 mg/dl (8.4-10.2); CARBON DIOXIDE 26 mmol/L (21-31); CHLORIDE 98 mmol/L (97-110); CREATININE 0.58 mg/dl (0.44-1.00); GLUCOSE 118 mg/dl (70-220); LIPASE < 10 U/L (23-300); POTASSIUM 3.1 mmol/L (3.5-5.1); SODIUM 135 mmol/L (135-144); TOTAL PROTEIN 8.9 g/dl (6.1-8.1)
[2018-08-31] MEDS: metroNIDAZOLE 500 MG/NS (PMX) 100 ML IVPB ×3 (03:26→21:05)
[2018-08-31] MEDS ORDERED: ACETAMINOPHEN 325 MG TAB PO (03:30)
[2018-08-31] MEDS: MAGNESIUM SULFATE 2 GM/50 ML 50 ML IVPB (03:38)
[2018-08-31] MEDS ORDERED: NACL 0.9% 3 ML SYG IV (05:00)
[2018-08-31] MEDS: POTASSIUM CHLORIDE 100 ML IVPB ×3 (05:25→09:39)
[2018-08-31] MEDS: SOD CHLORIDE 0.9% 1,000 ML IV (05:25)
[2018-08-31] MEDS: ONDANSETRON 4 MG INJ IV (05:37)
[2018-08-31] MEDS: HYDROmorphONE 0.5 MG/0.5 ML SYG IV ×5 (05:37→21:05)
[2018-08-31] MEDS: LEVOFLOXACIN 500MG/D5W (PMX) 100 ML IVPB (05:37)
[2018-08-31 06:12] LABS: ADD MAN DIFF? NO
[2018-08-31 06:23] LABS: BASOPHIL # 0.1 10^3/ul (0.0-0.1); BASOPHILS % 0.5 % (0.0-2.0); EOSINOPHILS % 0.1 % (0.0-7.0); HEMATOCRIT 34.1 % (37.0-47.0); HEMOGLOBIN 11.6 g/dl (12.0-16.0); LYMPHOCYTES % 15.7 % (15.0-51.0); MEAN CORPUSCULAR HEMOGLOBIN 32.3 pg (29.0-33.0); MEAN PLATELET VOLUME 10.2 fl (7.4-10.4); MONOCYTE # 0.7 10^3/ul (0.3-0.9); MONOCYTES % 5.1 % (0.0-11.0); NEUTROPHILS % 78.2 % (39.0-77.0); PLATELET COUNT 311 10^3/UL (140-415); RED BLOOD COUNT 3.59 10^6/ul (4.20-5.40); RED CELL DISTRIBUTION WIDTH 14.6 % (11.5-14.5)
[2018-08-31 06:23] LABS: WHITE BLOOD COUNT 12.8 10^3/ul (4.8-10.8)
[2018-08-31] MEDS: HYDROmorphONE 2 MG/ML SYG IV (07:34)
[2018-08-31] MEDS: PANTOPRAZOLE 40 MG INJ IV (07:34)
[2018-08-31 07:37] LABS: ALANINE AMINOTRANSFERASE 18 IU/L (13-69); ALBUMIN 2.6 g/dl (3.3-4.9); ALBUMIN/GLOBULIN RATIO 0.52; ALKALINE PHOSPHATASE 295 IU/L (42-121); ANION GAP 9 (5-13); ASPARTATE AMINO TRANSFERASE 46 IU/L (15-46); BILIRUBIN,TOTAL 3.6 mg/dl (0.2-1.3); BLOOD UREA NITROGEN 9 mg/dl (7-20); CALCIUM 7.9 mg/dl (8.4-10.2); CARBON DIOXIDE 25 mmol/L (21-31); CHLORIDE 103 mmol/L (97-110); CREATININE 0.55 mg/dl (0.44-1.00); Estimated GFR > 60 mL/min (>60); GLUCOSE 106 mg/dl (70-220); MAGNESIUM 2.7 mg/dl (1.7-2.5); SODIUM 137 mmol/L (135-144); TOTAL PROTEIN 7.6 g/dl (6.1-8.1)
[2018-08-31 07:41] LABS: POTASSIUM 2.6 mmol/L (3.5-5.1)
[2018-08-31] MEDS: POTASSIUM CHLORIDE 40 MEQ in SOD CHLORIDE 0.9% 1,000 ML IV ×2 (15:34→22:45)
[2018-09-01] MEDS: HYDROmorphONE 0.5 MG/0.5 ML SYG IV ×7 (00:28→23:55)
[2018-09-01] MEDS: LORAZEPAM 1 MG TAB PO ×3 (00:56→22:37)
[2018-09-01] MEDS: LEVOFLOXACIN 500MG/D5W (PMX) 100 ML IVPB (04:59)
[2018-09-01] MEDS: POTASSIUM CHLORIDE 40 MEQ in SOD CHLORIDE 0.9% 1,000 ML IV (04:59)
[2018-09-01] MEDS: metroNIDAZOLE 500 MG/NS (PMX) 100 ML IVPB ×2 (06:17→13:37)
[2018-09-01] MEDS: PANTOPRAZOLE 40 MG INJ IV (07:33)
[2018-09-01 10:43] LABS: ANION GAP 5 (5-13); BLOOD UREA NITROGEN 9 mg/dl (7-20); CALCIUM 7.7 mg/dl (8.4-10.2); CARBON DIOXIDE 23 mmol/L (21-31); CHLORIDE 109 mmol/L (97-110); CREATININE 0.58 mg/dl (0.44-1.00); Estimated GFR > 60 mL/min (>60); GLUCOSE 69 mg/dl (70-220); SODIUM 137 mmol/L (135-144)
[2018-09-01] MEDS: SOD CHLORIDE 0.9% 1,000 ML IV (18:29)
[2018-09-02] MEDS: HYDROmorphONE 0.5 MG/0.5 ML SYG IV ×7 (02:45→22:24)
[2018-09-02 06:07] LABS: ADD MAN DIFF? NO
[2018-09-02] MEDS: PANTOPRAZOLE 40 MG INJ IV (06:37)
[2018-09-02 06:38] LABS: PHOSPHORUS 2.3 mg/dl (2.5-4.9)
[2018-09-02 07:31] LABS: ANION GAP 15 (5-13); BLOOD UREA NITROGEN 17 mg/dl (7-20); CALCIUM 9.6 mg/dl (8.4-10.2); CARBON DIOXIDE 24 mmol/L (21-31); CHLORIDE 102 mmol/L (97-110); CREATININE 1.22 mg/dl (0.44-1.00); Estimated GFR 48 mL/min (>60); GLUCOSE 111 mg/dl (70-220); POTASSIUM 4.2 mmol/L (3.5-5.1); SODIUM 141 mmol/L (135-144)
[2018-09-02] MEDS: SOD CHLORIDE 0.9% 1,000 ML IV ×2 (07:54→19:59)
[2018-09-02 08:33] LABS: WHITE BLOOD COUNT 5.3 10^3/ul (4.8-10.8)
[2018-09-02 08:33] LABS: BASOPHIL # 0.1 10^3/ul (0.0-0.1); BASOPHILS % 1.1 % (0.0-2.0); EOSINOPHILS # 0.1 10^3/ul (0.0-0.5); EOSINOPHILS % 2.5 % (0.0-7.0); HEMATOCRIT 26.8 % (37.0-47.0); HEMOGLOBIN 8.8 g/dl (12.0-16.0); LYMPHOCYTES # 1.5 10^3/ul (0.8-2.9); LYMPHOCYTES % 27.6 % (15.0-51.0); MEAN CORPUSCULAR HEMOGLOBIN 32.2 pg (29.0-33.0); MEAN CORPUSCULAR HGB CONC 32.8 g/dl (32.0-37.0); MEAN CORPUSCULAR VOLUME 98.2 fl (82.0-101.0); MEAN PLATELET VOLUME 9.7 fl (7.4-10.4); MONOCYTE # 0.3 10^3/ul (0.3-0.9); MONOCYTES % 5.9 % (0.0-11.0); NEUTROPHIL # 3.3 10^3/ul (1.6-7.5); NEUTROPHILS % 62.5 % (39.0-77.0); PLATELET COUNT 175 10^3/UL (140-415); RED BLOOD COUNT 2.73 10^6/ul (4.20-5.40)
[2018-09-02] MEDS: LORAZEPAM 1 MG TAB PO ×2 (13:49→19:59)
[2018-09-03] MEDS: HYDROmorphONE 0.5 MG/0.5 ML SYG IV ×3 (01:45→14:15)
[2018-09-03] MEDS: PANTOPRAZOLE (EC) 40 MG TAB PO (06:23)
[2018-09-03 06:24] LABS: ANION GAP 3 (5-13); BLOOD UREA NITROGEN 6 mg/dl (7-20); CALCIUM 7.7 mg/dl (8.4-10.2); CARBON DIOXIDE 23 mmol/L (21-31); CHLORIDE 107 mmol/L (97-110); CREATININE 0.51 mg/dl (0.44-1.00); Estimated GFR > 60 mL/min (>60); GLUCOSE 89 mg/dl (70-220); MAGNESIUM 1.8 mg/dl (1.7-2.5); PHOSPHORUS 2.3 mg/dl (2.5-4.9); POTASSIUM 3.6 mmol/L (3.5-5.1); SODIUM 133 mmol/L (135-144)
[2018-09-03] MEDS: SOD CHLORIDE 0.9% 1,000 ML IV ×2 (10:30→15:49)
[2018-09-03] MEDS: LORAZEPAM 1 MG TAB PO (15:48)
[2018-09-03] MEDS: HYDROCODONE/APAP (5/325) TAB PO (16:08)
[2018-09-03] MEDS: SODIUM PHOSPHATE 15 MMOL in SOD CHLORIDE 0.9% 250 ML IVPB (20:01)
[2018-09-03] MEDS: morphine (ER) 15 MG TAB PO (21:15)
[2018-09-04] MEDS: HYDROmorphONE 1 MG/ML SYG IV ×4 (02:13→20:38)
[2018-09-04] MEDS: LORAZEPAM 1 MG TAB PO ×3 (02:56→21:41)
[2018-09-04] MEDS: HYDROCODONE/APAP (5/325) TAB PO ×3 (05:14→23:53)
[2018-09-04] MEDS: PANTOPRAZOLE (EC) 40 MG TAB PO (05:14)
[2018-09-04] MEDS: morphine (ER) 15 MG TAB PO ×2 (08:48→20:41)
[2018-09-04] MEDS: ENOXAPARIN 40 MG/0.4 ML SYG SC (08:52)
[2018-09-04] MEDS ORDERED: DEXTROSE 5%-0.45% NACL 1,000 ML IV (14:00)
[2018-09-05] MEDS: HYDROmorphONE 1 MG/ML SYG IV ×3 (00:36→20:55)
[2018-09-05 05:11] LABS: ADD MAN DIFF? NO
[2018-09-05 05:17] LABS: WHITE BLOOD COUNT 7.9 10^3/ul (4.8-10.8)
[2018-09-05 05:17] LABS: BASOPHIL # 0.1 10^3/ul (0.0-0.1); BASOPHILS % 1.3 % (0.0-2.0); EOSINOPHILS # 0.3 10^3/ul (0.0-0.5); EOSINOPHILS % 3.5 % (0.0-7.0); HEMATOCRIT 28.6 % (37.0-47.0); HEMOGLOBIN 9.6 g/dl (12.0-16.0); LYMPHOCYTES # 2.1 10^3/ul (0.8-2.9); LYMPHOCYTES % 26.1 % (15.0-51.0); MEAN CORPUSCULAR HEMOGLOBIN 32.2 pg (29.0-33.0); MEAN CORPUSCULAR HGB CONC 33.6 g/dl (32.0-37.0); MEAN PLATELET VOLUME 9.7 fl (7.4-10.4); MONOCYTE # 0.6 10^3/ul (0.3-0.9); MONOCYTES % 7.2 % (0.0-11.0); NEUTROPHIL # 4.9 10^3/ul (1.6-7.5); NEUTROPHILS % 61.4 % (39.0-77.0); PLATELET COUNT 204 10^3/UL (140-415); RED BLOOD COUNT 2.98 10^6/ul (4.20-5.40); RED CELL DISTRIBUTION WIDTH 14.5 % (11.5-14.5)
[2018-09-05] MEDS: PANTOPRAZOLE (EC) 40 MG TAB PO (05:30)
[2018-09-05 05:52] LABS: ALANINE AMINOTRANSFERASE 17 IU/L (13-69); ALBUMIN 2.1 g/dl (3.3-4.9); ALBUMIN/GLOBULIN RATIO 0.47; ALKALINE PHOSPHATASE 221 IU/L (42-121); ANION GAP 5 (5-13); ASPARTATE AMINO TRANSFERASE 26 IU/L (15-46); BILIRUBIN,INDIRECT 1.6 mg/dl (0-1.1); BILIRUBIN,TOTAL 3.2 mg/dl (0.2-1.3); BLOOD UREA NITROGEN 5 mg/dl (7-20); CALCIUM 7.9 mg/dl (8.4-10.2); CARBON DIOXIDE 24 mmol/L (21-31); CHLORIDE 102 mmol/L (97-110); CREATININE 0.59 mg/dl (0.44-1.00); Estimated GFR > 60 mL/min (>60); GLUCOSE 103 mg/dl (70-220); MAGNESIUM 1.9 mg/dl (1.7-2.5); POTASSIUM 3.6 mmol/L (3.5-5.1); SODIUM 131 mmol/L (135-144); TOTAL PROTEIN 6.5 g/dl (6.1-8.1)
[2018-09-05] MEDS ORDERED: PROPOFOL 200 MG INJ (07:00)
[2018-09-05] MEDS ORDERED: HYDROmorphONE 1 MG/5 ML IV SYRINGE IV ×2 (09:00)
[2018-09-05] MEDS ORDERED: ALBUTEROL 0.083% (NEB) 2.5 MG/3 ML AMP HHN (09:00)
[2018-09-05] MEDS ORDERED: ONDANSETRON 4 MG INJ IV (09:00)
[2018-09-05] MEDS ORDERED: FENTAnyl 50 MCG/ML VIAL IV ×2 (09:00)
[2018-09-05] MEDS: morphine (ER) 15 MG TAB PO ×2 (09:00→21:00)
[2018-09-05] MEDS ORDERED: OXYCODONE/ACETAMINOPHEN (5/325) TAB PO ×2 (09:00)
[2018-09-05] MEDS: DOCUSATE SODIUM 100 MG CAP PO (09:00)
[2018-09-05] MEDS ORDERED: LABETALOL HCL 20MG INJ IV (09:00)
[2018-09-05] MEDS ORDERED: DIPHENHYDRAMINE 50 MG INJ IV (09:00)
[2018-09-05] MEDS ORDERED: morphine (1 MG/ML) 10ML SYRINGE IV ×2 (09:00)
[2018-09-05] MEDS: PROPOFOL 80 ML (12:54)
[2018-09-05] MEDS: EPHEDrine 25 MG/5 ML SYG (12:54)
[2018-09-05] MEDS: PHENYLephrine (100 MCG/ML) 10ML SYG (12:55)
[2018-09-05] MEDS: GLYCOPYRROLATE 0.4 MG INJ (12:55)
[2018-09-05] MEDS: MIDAZOLAM 1 MG/ML 2 ML INJ (12:56)
[2018-09-05] MEDS: LIDOCAINE 2% (SDV) 5 ML INJ (12:56)
[2018-09-05] MEDS: LIDOCAINE 1% (MPF) 5 ML VIAL (12:56)
[2018-09-05] MEDS: SOD CHLORIDE 0.9% 500 ML (12:56)
[2018-09-05] MEDS: FENTAnyl 50 MCG/ML VIAL (12:56)
[2018-09-05] MEDS: IOHEXOL 300MG/ML 30 ML BTL (12:57)
[2018-09-05] MEDS: DEXTROSE 5%-0.45% NACL 1,000 ML IV ×3 (18:17→23:58)
[2018-09-05] MEDS: ENOXAPARIN 40 MG/0.4 ML SYG SC (18:19)
[2018-09-05] MEDS: HYDROCODONE/APAP (5/325) TAB PO (22:09)
[2018-09-05] MEDS: LORAZEPAM 1 MG TAB PO (23:58)
[2018-09-06] MEDS: HYDROmorphONE 1 MG/ML SYG IV ×5 (00:42→21:03)
[2018-09-06] MEDS: HYDROCODONE/APAP (5/325) TAB PO ×3 (02:31→16:34)
[2018-09-06 06:12] LABS: ADD MAN DIFF? NO
[2018-09-06 06:15] LABS: WHITE BLOOD COUNT 10.4 10^3/ul (4.8-10.8)
[2018-09-06 06:15] LABS: BASOPHIL # 0.1 10^3/ul (0.0-0.1); BASOPHILS % 0.7 % (0.0-2.0); EOSINOPHILS # 0.1 10^3/ul (0.0-0.5); EOSINOPHILS % 1.1 % (0.0-7.0); HEMATOCRIT 28.3 % (37.0-47.0); HEMOGLOBIN 9.6 g/dl (12.0-16.0); LYMPHOCYTES # 1.8 10^3/ul (0.8-2.9); LYMPHOCYTES % 16.9 % (15.0-51.0); MEAN CORPUSCULAR HEMOGLOBIN 32.8 pg (29.0-33.0); MEAN CORPUSCULAR HGB CONC 33.9 g/dl (32.0-37.0); MEAN CORPUSCULAR VOLUME 96.6 fl (82.0-101.0); MEAN PLATELET VOLUME 10.1 fl (7.4-10.4); MONOCYTE # 0.6 10^3/ul (0.3-0.9); MONOCYTES % 5.8 % (0.0-11.0); NEUTROPHIL # 7.8 10^3/ul (1.6-7.5); PLATELET COUNT 180 10^3/UL (140-415); RED BLOOD COUNT 2.93 10^6/ul (4.20-5.40); RED CELL DISTRIBUTION WIDTH 14.9 % (11.5-14.5)
[2018-09-06] MEDS: PANTOPRAZOLE (EC) 40 MG TAB PO (06:59)
[2018-09-06 07:10] LABS: ALANINE AMINOTRANSFERASE 23 IU/L (13-69); ALKALINE PHOSPHATASE 187 IU/L (42-121); ANION GAP 7 (5-13); ASPARTATE AMINO TRANSFERASE 37 IU/L (15-46); BILIRUBIN,INDIRECT 1.6 mg/dl (0-1.1); BILIRUBIN,TOTAL 2.7 mg/dl (0.2-1.3); BLOOD UREA NITROGEN 5 mg/dl (7-20); CALCIUM 7.8 mg/dl (8.4-10.2); CARBON DIOXIDE 21 mmol/L (21-31); CHLORIDE 104 mmol/L (97-110); CREATININE 0.52 mg/dl (0.44-1.00); Estimated GFR > 60 mL/min (>60); GLUCOSE 128 mg/dl (70-220); POTASSIUM 3.5 mmol/L (3.5-5.1); SODIUM 132 mmol/L (135-144); TOTAL PROTEIN 6.1 g/dl (6.1-8.1)
[2018-09-06 07:11] LABS: ALBUMIN/GLOBULIN RATIO 0.48
[2018-09-06] MEDS: DOCUSATE SODIUM 100 MG CAP PO (08:33)
[2018-09-06] MEDS: LORAZEPAM 1 MG TAB PO ×2 (08:35→16:33)
[2018-09-06] MEDS: ENOXAPARIN 40 MG/0.4 ML SYG SC (08:38)
[2018-09-06] MEDS: morphine (ER) 15 MG TAB PO ×2 (10:00→22:13)
[2018-09-06] MEDS: ONDANSETRON 4 MG INJ IV ×2 (10:01→22:13)
[2018-09-06] MEDS: DEXTROSE 5%-0.45% NACL 1,000 ML IV (16:28)
[2018-09-07] MEDS: HYDROmorphONE 1 MG/ML SYG IV ×3 (03:47→12:34)
[2018-09-07 05:24] LABS: ADD MAN DIFF? NO; BASOPHIL # 0.1 10^3/ul (0.0-0.1); EOSINOPHILS # 0.2 10^3/ul (0.0-0.5); EOSINOPHILS % 2.3 % (0.0-7.0); HEMATOCRIT 30.2 % (37.0-47.0); HEMOGLOBIN 10.1 g/dl (12.0-16.0); LYMPHOCYTES # 1.6 10^3/ul (0.8-2.9); LYMPHOCYTES % 15.7 % (15.0-51.0); MEAN CORPUSCULAR HEMOGLOBIN 32.6 pg (29.0-33.0); MEAN CORPUSCULAR HGB CONC 33.4 g/dl (32.0-37.0); MEAN CORPUSCULAR VOLUME 97.4 fl (82.0-101.0); MEAN PLATELET VOLUME 10.1 fl (7.4-10.4); MONOCYTE # 0.6 10^3/ul (0.3-0.9); MONOCYTES % 5.8 % (0.0-11.0); NEUTROPHIL # 7.5 10^3/ul (1.6-7.5); NEUTROPHILS % 74.5 % (39.0-77.0); PLATELET COUNT 162 10^3/UL (140-415)
[2018-09-07 05:24] LABS: WHITE BLOOD COUNT 10.1 10^3/ul (4.8-10.8)
[2018-09-07] MEDS: PANTOPRAZOLE (EC) 40 MG TAB PO (06:35)
[2018-09-07] MEDS: DEXTROSE 5%-0.45% NACL 1,000 ML IV (08:26)
[2018-09-07] MEDS: DOCUSATE SODIUM 100 MG CAP PO (08:51)
[2018-09-07] MEDS: morphine (ER) 15 MG TAB PO ×3 (08:52→22:24)
[2018-09-07] MEDS: ENOXAPARIN 40 MG/0.4 ML SYG SC (08:53)
[2018-09-07] MEDS: LORAZEPAM 1 MG TAB PO ×2 (09:32→23:11)
[2018-09-07] MEDS: METHYLNALTREXONE 12 MG/0.6 ML VIAL SC (16:35)
[2018-09-07] MEDS: POLYETHYLENE GLYCOL 17 GM PACKET PO ×2 (16:35→20:30)
[2018-09-07] MEDS: HYDROCODONE/APAP (5/325) TAB PO ×2 (16:48→23:12)
[2018-09-07] MEDS: morphine 2 MG INJ IV (21:24)
[2018-09-08] MEDS: morphine 2 MG INJ IV (04:09)
[2018-09-08] MEDS: PANTOPRAZOLE (EC) 40 MG TAB PO (05:46)
[2018-09-08] MEDS: HYDROCODONE/APAP (5/325) TAB PO ×2 (05:46→12:48)
[2018-09-08] MEDS: LORAZEPAM 1 MG TAB PO ×2 (06:44→15:50)
[2018-09-08] MEDS: DOCUSATE SODIUM 100 MG CAP PO (09:22)
[2018-09-08] MEDS: morphine (ER) 15 MG TAB PO (09:23)
[2018-09-08] MEDS: POLYETHYLENE GLYCOL 17 GM PACKET PO (09:23)
[2018-09-08] MEDS: ENOXAPARIN 40 MG/0.4 ML SYG SC (09:27)
[2018-09-08] MEDS: METHYLNALTREXONE 12 MG/0.6 ML VIAL SC (09:28)
[2018-09-08] MEDS: HYDROmorphONE 0.5 MG/0.5 ML SYG IV (14:32)
== END 2018-09-08 18:30 | disposition home or self-care (01) | DRG 919 ==
LOC: E/R 20:52 → MS1 09-03 01:50 → 6WM 08-31 05:12
PROC: 0F9930Z Drainage of Common Bile Duct with Drainage Device, Percutaneous Approach (ICD-10-PCS; principal; 2018-09-05)
PROC: BF101ZZ Fluoroscopy of Bile Ducts using Low Osmolar Contrast (ICD-10-PCS; 2018-09-05)
DX: T85.590A Other mechanical complication of bile duct prosthesis, initial encounter (principal); K83.1 Obstruction of bile duct; C23 Malignant neoplasm of gallbladder; K56.7 Ileus, unspecified; R18.8 Other ascites; C78.89 Secondary malignant neoplasm of other digestive organs; F32.9 Major depressive disorder, single episode, unspecified; R19.7 Diarrhea, unspecified; E87.6 Hypokalemia; G89.3 Neoplasm related pain (acute) (chronic); E80.6 Other disorders of bilirubin metabolism
CPT/HCPCS: 36415; 74176; 75982; 80048; 80053; 82962; 83690; 83735; 84100; 85025; 87075; 90686; 96361; 96374; 99285-25

== ENCOUNTER 2018-09-16 19:04 | Emergency (ER) | payer MEDICARE, BC | END 2018-09-16 23:11 | disposition EXP | LOC: E/R 23:11 | DX: I46.9 Cardiac arrest, cause unspecified (principal); J96.00 Acute respiratory failure, unspecified whether with hypoxia or hypercapnia; R40.2112 Coma scale, eyes open, never, at arrival to emergency department; Z85.07 Personal history of malignant neoplasm of pancreas | CPT/HCPCS: 31500; 92950; 99285-25 ==